=== PATIENT | male | born 1935 | race Caucasian/White ===

== ENCOUNTER 2018-05-13 09:24 | Inpatient (IN) | payer MEDICARE, OTHER ==
[2018-05-13] MEDS: Sodium Chloride 0.9% 10 ML Syringe FLUSH PRN ×2 (09:53→15:11)
[2018-05-13] MEDS ORDERED: Albuterol/Ipratropium 3.0-0.5 MG/3 ML Neb Soln NEB ONE (10:01)
[2018-05-13] MEDS ORDERED: Furosemide 40 MG/4 ML VIAL IVPUSH ONE ×2 (10:01→15:00)
[2018-05-13 10:27] LABS: ANION GAP 17.6; CHLORIDE,CL 99 mmol/L (101-111); SODIUM,NA 136 mmol/L (135-145)
--- NOTE | 2018-05-13 11:17 | EDM.PDOC ---
"Scribed by Brandie Granado 05/13/18 1053 for Elizabeth Perkins MD ED HPI GENERAL MEDICAL PROBLEM - General Chief Complaint: Respiratory Problem Stated Complaint: BREATHING PROBLEMS Time Seen by Provider: 05/13/18 09:45 Source of Information: Reports: Patient, RN, RN Notes Reviewed History Limitations: Reports: No Limitations - History of Present Illness INITIAL COMMENTS - FREE TEXT/NARRATIVE: Patient presents to ER from home by POV with complaint of progressively worsening shortness of breath for the past several days. Admits to orthopnea, edema and dyspnea at rest. Patient states he is concerned that this is a flare up of congestive heart failure. He denies fever, chills, chest pain or palpitations. He has not taken his Lasix yet this morning. He does have some sputum production but states it is clear but white. Onset: Gradual Duration: Getting Worse Location: Reports: Chest Quality: Reports: Other (denies pain) Severity: Severe Improves with: Reports: None Worsens with: Reports: Other (supine position and exertion.) Associated Symptoms: Reports: No Other Symptoms - Related Data Allergies Allergy/AdvReac Type Severity Reaction Status Date / Time No Known Allergies Allergy Verified 05/13/18 09:40 Home Meds: Home Meds Cholecalciferol (Vitamin D3) [Vitamin D3] 5,000 unit PO DAILY 09/20/13 [History] FLUoxetine HCl [Fluoxetine HCl] 20 mg PO DAILY 09/20/13 [History] Simvastatin 20 mg PO BEDTIME 09/20/13 [History] Cyanocobalamin (Vitamin B-12) [Vitamin B-12] 100 mcg PO DAILY 03/24/14 [History] Flecainide Acetate 50 mg PO DAILY 05/10/16 [History] Magnesium 250 mg PO DAILY 05/10/16 [History] Metoprolol Succinate 50 mg PO DAILY 05/10/16 [History] Rivaroxaban [Xarelto] 20 mg PO DAILY 05/10/16 [History] Furosemide 40 mg PO BID 05/13/18 [History] Potassium Chloride [Klor-Con 10] 10 meq PO DAILY 05/13/18 [History] Past Medical History HEENT History: Reports: Other (See Below) Other HEENT History: cleft pallet Cardiovascular History: Reports: High Cholesterol, Hypertension, Pacemaker Respiratory History: Reports: Sleep Apnea, SOB Gastrointestinal History: Reports: GI Bleed Hematologic History: Reports: Blood Transfusion(s) Social & Family History - Family History Family Medical History: Unobtainable - Living Situation & Occupation Living situation: Reports: with Spouse ED ROS GENERAL - Review of Systems Review Of Systems: ROS reveals no pertinent complaints other than HPI. ED EXAM, GENERAL - Physical Exam Exam: See Below Exam Limited By: No Limitations General Appearance: Alert, No Apparent Distress, Obese, Other (Frail, elderly appearing) Eye Exam: Bilateral Eye: Normal Inspection Ears: Normal External Exam, Hearing Loss (chronic/stable) Nose: No Blood. No: Nasal Drainage Throat/Mouth: Normal Inspection, Normal Lips, No Airway Compromise Head: Atraumatic, Normocephalic Neck: Normal Inspection, Supple, Non-Tender, Full Range of Motion Respiratory/Chest: No Respiratory Distress, No Accessory Muscle Use, Decreased Breath Sounds, Crackles, Rales, Wheezing. No: Rhonchi, Stridor Cardiovascular: Regular Rate, Rhythm, Other (2+ pitting edema to B/L lower extremities to the knees) GI/Abdominal: Normal Bowel Sounds, Soft, Non-Tender (Male) Exam: Deferred Rectal (Males) Exam: Deferred Back Exam: Normal Inspection Extremities: Non-Tender, Normal Capillary Refill, Pedal Edema Neurological: Alert, Oriented, CN II-XII Intact, Normal Cognition, No Motor/ Sensory Deficits Psychiatric: Normal Affect, Normal Mood Skin Exam: Warm, Dry, Intact, Normal Color, No Rash EKG INTERPRETATION EKG Date: 05/13/18 Time: 10:15 Rhythm: Other (paced) Rate (Beats/Min): 72 Comparison: NA - No Prior EKG Course - Vital Signs Last Recorded V/S: Last Vital Signs Temp 37.8 C 05/13/18 11:00 Pulse 70 05/13/18 11:00 Resp 22 H 05/13/18 11:00 BP 147/82 H 05/13/18 11:00 Pulse Ox 89 L 05/13/18 09:28 - Orders/Labs/Meds Orders: Active Orders 24 hr Category Date Time Status EKG 12 Lead [EKG Documentation Completion] [RC] STAT Care 05/13/18 10:00 Active Peripheral IV Care [RC] . DIRECTED Care 05/13/18 10:01 Active RT Aerosol Therapy [RC] ASDIRECTED Care 05/13/18 10:01 Active Chest 1V Frontal [CR] Stat Exams 05/13/18 10:00 Taken Sodium Chloride 0.9% [Saline Flush] Med 05/13/18 10:01 Active 10 ml FLUSH ASDIRECTED PRN Peripheral IV Insertion Adult [OM.PC] Stat Oth 05/13/18 10:00 Ordered Medication Orders Sodium Chloride (Saline Flush) 10 ml FLUSH ASDIRECTED PRN PRN Reason: Keep Vein Open Last Admin: 05/13/18 09:53 Dose: 10 ml Labs: Laboratory Tests 05/13/18 05/13/18 Range/Units 09:55 09:55 WBC 5.5 (5.0-10.0) 10^3/uL RBC 4.09 L (4.6-6.2) 10^6/uL Hgb 13.1 L (14.0-18.0) g/dL Hct 38.5 L (40.0-54.0) % MCV 94.1 (80-100) fL MCH 32.0 (27.0-34.0) pg MCHC 34.0 (33.0-35.0) g/dL Plt Count 174 (150-450) 10^3/uL Neut % (Auto) 65.2 (42.2-75.2) % Lymph % (Auto) 18.3 L (20.5-50.1) % [place] % (Auto) 15.9 H (2-8) % Eos % (Auto) 0.2 L (1.0-3.0) % Baso % (Auto) 0.4 (0.0-1.0) % Sodium 136 (135-145) mmol/L Potassium 3.6 (3.6-5.0) mmol/L Chloride 99 L (101-111) mmol/L Carbon Dioxide 23.0 (21.0-31.0) mmol/L Anion Gap 17.6 BUN 17 (7-18) mg/dL Creatinine 1.0 (0.6-1.3) mg/dL Est Cr Clr Drug Dosing TNP Estimated GFR (MDRD) > 60 BUN/Creatinine Ratio 17.00 Glucose 118 H (74-105) mg/dL Calcium 8.3 L (8.4-10.2) mg/dl Total Bilirubin 1.3 H (0.2-1.0) mg/dL AST 43 H (10-42) IU/L ALT 37 (10-60) IU/L Alkaline Phosphatase 60 (42-121) IU/L Troponin I 0.03 H* (0.00-0.02) ng/ml B-Natriuretic Peptide 751 H (0-100) pg/ml Total Protein 6.4 L (6.7-8.2) g/dl Albumin 3.3 (3.2-5.5) g/dl Globulin 3.1 Albumin/Globulin Ratio 1.06 Meds: Medications Generic Name Dose Route Start Last Admin Trade Name Freq PRN Reason Stop Dose Admin Sodium Chloride 10 ml 05/13/18 10:05/13/18 09:53 Saline Flush FLUSH 10 ml ASDIRECTED PRN Administration Keep Vein Open Discontinued Medications Generic Name Dose Route Start Last Admin Trade Name Freq PRN Reason Stop Dose Admin Albuterol/Ipratropium 3 ml 05/13/18 10:05/13/18 10:13 Duoneb 3.0-0.5 Mg/3 Ml NEB 05/13/18 10:02 3 ml ONETIME ONE Administration Furosemide 40 mg 05/13/18 10:05/13/18 10:13 Lasix IVPUSH 05/13/18 10:02 40 mg NOW ONE Administration - Radiology Interpretation Free Text/Narrative:: [facility] Final Radiology Report Call: [phone] assistance Online chat: [email or web address] Name: CHREYL FRANKEL Age: 82Years M Date: 05/13/2018 SSN: -- : [id number] Study: XR CHEST 1 VIEW Requesting Physician: ELIZABETH PERKINS Images: 1 Addl Studies: Provided Clinical History: Contrast: Contrast Medium: Contrast Amount: Contrast Method: Page 1 of 2 EXAM: XR Chest, 1 View EXAM DATE/TIME: 05/13/2018 10:31 AM CLINICAL HISTORY: 82 years old, male; Signs and symptoms; Shortness of breath and other: Edema; Patient HX: HX chf TECHNIQUE: XR of the chest, 1 view. COMPARISON: No relevant prior studies available. FINDINGS: Tubes, catheters and devices: Dual-lead pacemaker is in place with leads projecting over the right heart. The right ventricular lead is slightly more superiorly positioned than typical. Lungs: The pulmonary vasculature is dilated. Interstitial markings are increased in a perihilar distribution. No focal consolidation. Pleural space: Unremarkable. No pleural effusion. No pneumothorax. Heart/Mediastinum: The heart is enlarged. Bones/joints: Unremarkable. IMPRESSION: 1. Cardiomegaly, central vascular congestion and interstitial edema typical of fluid overload. 2. Slightly more superiorly positioned right ventricular lead than expected. Recommend correlation surgical history and with any outside examinations to evaluate for stability. Thank you for allowing us to participate in the care of your patient. CHERYL FRANKEL | Final Radiology Report CONFIDENTIALITY STATEMENT This report is intended only for use by the referring physician, and only in accordance with law. If you received this in error, call [phone]. Page 2 of 2 Dictated and Authenticated by: Lyn Snigh MD 05/13/2018 10:50 AM Central Time ([place] & [place]) Departure - Departure Time of Disposition: 11:07 (admitted to Dr. Pitts) Disposition: Admitted As Inpatient 68 Condition: Serious Clinical Impression: Acute on chronic diastolic CHF (congestive heart failure), Hypoxia - Discharge Information *PRESCRIPTION DRUG MONITORING PROGRAM REVIEWED*: Not Applicable *COPY OF PRESCRIPTION DRUG MONITORING REPORT IN PATIENT [place]: Not Applicable Forms: ED Department Discharge - My Orders Last 24 Hours: My Active Orders 05/13/18 10:00 EKG 12 Lead [EKG Documentation Completion] [RC] STAT Chest 1V Frontal [CR] Stat Peripheral IV Insertion Adult [OM.PC] Stat 05/13/18 10:01 Peripheral IV Care [RC] . DIRECTED RT Aerosol Therapy [RC] ASDIRECTED Sodium Chloride 0.9% [Saline Flush] 10 ml FLUSH ASDIRECTED PRN - Assessment/Plan Last 24 Hours: My Active Orders 05/13/18 10:00 EKG 12 Lead [EKG Documentation Completion] [RC] STAT Chest 1V Frontal [CR] Stat Peripheral IV Insertion Adult [OM.PC] Stat 05/13/18 10:01 Peripheral IV Care [RC] . DIRECTED RT Aerosol Therapy [RC] ASDIRECTED Sodium Chloride 0.9% [Saline Flush] 10 ml FLUSH ASDIRECTED PRN I have read and agree with the documentation that has been completed regarding this visit. By signing this record, I attest that the documentation was completed in my physical presence and is an accurate record of the encounter."
[2018-05-13] MEDS ORDERED: Sodium Chloride 0.9% 10 ML Syringe FLUSH PRN (12:36)
[2018-05-13] MEDS ORDERED: Acetaminophen 325 MG Tab PO PRN (12:36)
[2018-05-13] MEDS ORDERED: Furosemide 40 MG/4 ML VIAL IVPUSH SCH (12:45)
[2018-05-13] MEDS: Nicotine 7 MG/24 Hr Patch TRDERM SCH (12:56)
[2018-05-13] MEDS ORDERED: Potassium Chloride 10 MEQ Tab.ER PO ONE (13:00)
[2018-05-13] MEDS ORDERED: FLUoxetine 10 MG Cap PO ONE (13:00)
--- NOTE | 2018-05-13 13:05 | HP ---
CHIEF COMPLAINT: Shortness of breath. HISTORY OF PRESENT ILLNESS: The patient is an 82-year-old gentleman with past medical history of sick sinus syndrome, status post pacemaker placement, and atrial fibrillation, who was admitted through the emergency room because of increasing shortness of breath and increasing pedal edema that has been going on for the last several days and lately has been also complaining of orthopnea. The patient denies though any fever, any chills, chest pain, syncope, abdominal pain, nausea or vomiting, nor any other associated symptoms. Because of the above symptoms, he had increasing shortness of breath. He came into the emergency room, and he was subsequently admitted. PAST MEDICAL HISTORY: Remarkable for congestive heart failure; history of atrial fibrillation/sick sinus syndrome, status post permanent pacemaker placement; tobacco habituation; and dyslipidemia. FAMILY HISTORY: Noncontributory. SOCIAL HISTORY: The patient is . Smokes cigarettes but non-alcohol drinker. Recently moved to [place] from [place]. REVIEW OF SYSTEMS: As in the HPI. The rest of the review of systems is negative. HOME MEDICATIONS: 1. Toprol-XL 50 mg daily. 2. KCl 10 mEq daily. 3. Flecainide 50 mg b.i.d. 4. Simvastatin 20 mg at bedtime. 5. Magnesium 250 mg daily. 6. Fluoxetine 20 mg daily. 7. B12 1000 mcg p.o. daily. 8. Vitamin D3 5000 units p.o. daily. 9. Lasix 40 mg b.i.d. 10.Xarelto 20 mg daily. ALLERGIES: No known drug allergies. PHYSICAL EXAMINATION: General: The patient is very pleasant, is alert and oriented, in mild respiratory distress. Vital Signs: Blood pressure is 156/91, pulse of 70, respirations of 32, and saturation is 89% on 2 L per nasal cannula. HEENT: Normocephalic. There is pink palpebral conjunctiva. Sclerae anicteric. There is some mild JVD with hepatojugular reflux. Heart: Regular rate and rhythm. Normal S1 and S2. No gallops. Lungs: Diminished breath sounds on both bases with faint crackles bilaterally but no wheezing. Abdomen: Obese and protuberant but soft and nontender. Extremities: Remarkable for 1 to 2+ bilateral pedal edema. No calf tenderness. LABORATORY DATA: Lab workup: 1. EKG, paced rhythm. 2. Chest x-ray is remarkable for cardiomegaly and cephalizations. There are no infiltrates noted, and no pleural effusion noted. 3. CBC: WBC is 5.5, hemoglobin is 13.1, hematocrit is 38.5, platelet is 174. 4. Comp panel: Chloride is 99, glucose is 118, total bilirubin of 1.3, AST is 43. Troponin is 0.03. BNP is 751. The rest of the panel is unremarkable. ADMITTING DIAGNOSES: 1. Acute exacerbation of chronic congestive heart failure. 2. Sick sinus syndrome, status post permanent pacemaker placement. 3. Atrial fibrillation. 4. Tobacco habituation. 5. Dyslipidemia. TREATMENT PLAN: The patient is going to be admitted to the telemetry floor. The patient will be given IV Lasix. He will be resumed on his home medication, but I am going to increase his metoprolol to 75 mg p.o. daily as his blood pressure is running [id number] elevated. We will also recheck a troponin in the a.m. as his troponin level is slightly just above the normal range. The patient is a full code. [facility] /[id number]
[2018-05-13] MEDS: Metoprolol Succinate 50 MG Tab.ER PO SCH (13:08)
[2018-05-13] MEDS: FLECAINIDE ACETATE 50 MG PO SCH (17:46)
[2018-05-13] MEDS: Rivaroxaban 10 MG Tab PO SCH (21:43)
[2018-05-13] MEDS: Simvastatin 10 MG Tab PO SCH (21:44)
[2018-05-14] MEDS: Albuterol/Ipratropium 3.0-0.5 MG/3 ML Neb Soln NEB PRN ×2 (02:11→13:42)
[2018-05-14 06:55] LABS: CHLORIDE,CL 97 mmol/L (101-111); SODIUM,NA 135 mmol/L (135-145)
[2018-05-14] MEDS: FLECAINIDE ACETATE 50 MG PO SCH ×2 (08:45→17:49)
[2018-05-14] MEDS: FLUoxetine 10 MG Cap PO SCH (08:46)
[2018-05-14] MEDS: Metoprolol Succinate 50 MG Tab.ER PO SCH (08:47)
[2018-05-14] MEDS: Furosemide 40 MG/4 ML VIAL IVPUSH SCH ×2 (08:50→13:30)
[2018-05-14] MEDS: Nicotine 7 MG/24 Hr Patch TRDERM SCH (08:55)
[2018-05-14] MEDS ORDERED: CHOLECALCIFEROL 5000 UNIT PO SCH (09:00)
[2018-05-14] MEDS ORDERED: Potassium Chloride 10 MEQ Tab.ER PO SCH (09:00)
[2018-05-14] MEDS ORDERED: Non-Formulary Medication 1 Each (Rivaroxaban [Xarelto] 20 MG) PO SCH (09:00)
--- NOTE | 2018-05-14 12:31 | PCM.PN ---
- General Info Date of Service: 05/14/18 Admission Dx/Problem (Free Text): CHF exacerbation Subjective Update: I saw and examined the patient at bedside Shortness of breath has improved since admission Had an episode of blood-tinged stool has a history of hemorrhoids Functional Status: Reports: Pain Controlled - Review of Systems General: Reports: No Symptoms HEENT: Reports: No Symptoms Pulmonary: Reports: Shortness of Breath Cardiovascular: Reports: No Symptoms Gastrointestinal: Reports: No Symptoms Genitourinary: Reports: Other Musculoskeletal: Reports: Other (leg swelling) Neurological: Reports: No Symptoms - Patient Data Vitals - Most Recent: Last Vital Signs Temp 37.7 C 05/14/18 07:53 Pulse 73 05/14/18 08:47 Resp 22 H 05/14/18 07:53 BP 113/51 L 05/14/18 08:47 Pulse Ox 96 05/14/18 07:53 Weight - Most Recent: 95.424 kg I&O - Last 24 Hours: Intake & Output 05/13/18 05/14/18 05/14/18 22:59 06:59 14:59 Intake Total 300 125 560 Output Total 775 200 Balance -475 -75 560 Lab Results Last 24 Hours: Laboratory Results - last 24 hr 05/14/18 05/14/18 Range/Units 06:23 06:23 WBC 7.7 (5.0-10.0) 10^3/uL RBC 3.83 L (4.6-6.2) 10^6/uL Hgb 12.2 L (14.0-18.0) g/dL Hct 35.9 L (40.0-54.0) % MCV 93.7 (80-100) fL MCH 31.9 (27.0-34.0) pg MCHC 34.0 (33.0-35.0) g/dL Plt Count 162 (150-450) 10^3/uL Neut % (Auto) 74.2 (42.2-75.2) % Lymph % (Auto) 13.2 L (20.5-50.1) % [place] % (Auto) 12.3 H (2-8) % Eos % (Auto) 0.0 L (1.0-3.0) % Baso % (Auto) 0.3 (0.0-1.0) % Sodium 135 (135-145) mmol/L Potassium 3.0 L (3.6-5.0) mmol/L Chloride 97 L (101-111) mmol/L Carbon Dioxide 26.0 (21.0-31.0) mmol/L Anion Gap 15.0 BUN 18 (7-18) mg/dL Creatinine 0.9 (0.6-1.3) mg/dL Est Cr Clr Drug Dosing 56.94 mL/min Estimated GFR (MDRD) > 60 Glucose 116 H (74-105) mg/dL Calcium 8.2 L (8.4-10.2) mg/dl Troponin I 0.04 H* (0.00-0.02) ng/ml Med Orders - Current: Current Medications Acetaminophen (Tylenol) 650 mg PO Q4H PRN PRN Reason: Pain (Mild 1-3)/fever Albuterol/Ipratropium (Duoneb 3.0-0.5 Mg/3 Ml) 3 ml NEB QID PRN PRN Reason: Dyspnea Last Admin: 05/14/18 02:11 Dose: 3 ml Fluoxetine HCl (Prozac) 20 mg PO DAILY [facility] Last Admin: 05/14/18 08:46 Dose: 20 mg Furosemide (Lasix) 40 mg IVPUSH BIDDIURETIC [facility] Last Admin: 05/14/18 08:50 Dose: 40 mg Magnesium Oxide (Magnesium Oxide) 250 mg PO DAILY [facility] Last Admin: 05/14/18 08:46 Dose: 250 mg Metoprolol Succinate (Toprol Xl) 75 mg PO DAILY [facility] Last Admin: 05/14/18 08:47 Dose: 75 mg Nicotine (Habitrol) 7 mg TRDERM DAILY [facility] Last Admin: 05/14/18 08:55 Dose: Not Given (Flecainide Acetate 50 Mg) Patients Own 50 mg PO BIDMEALS [facility] Last Admin: 05/14/18 08:45 Dose: 50 mg Cyanocobalamin ( Vitamin B12) 1000 Mcg Tab Pt's Own Med 0 each PO DAILY [facility] Cholecalciferol [ Vitamin D3] 5,000 Unit Pt's Own Med 0 each PO DAILY [facility] Polyethylene Glycol (Miralax) 17 gm PO DAILY [facility] Potassium Chloride (Klor-Con 10) 40 meq PO BID [facility] Stop: 05/16/18 11:16 Rivaroxaban (Xarelto) 20 mg PO BEDTIME [facility] Last Admin: 05/13/18 21:43 Dose: 20 mg Senna/Docusate Sodium (Senna Plus) 1 tab PO BID [facility] Simvastatin (Zocor) 20 mg PO BEDTIME [facility] Last Admin: 05/13/18 21:44 Dose: 20 mg Sodium Chloride (Saline Flush) 10 ml FLUSH ASDIRECTED PRN PRN Reason: Keep Vein Open Last Admin: 05/13/18 15:11 Dose: 10 ml Sodium Chloride (Saline Flush) 10 ml FLUSH ASDIRECTED PRN PRN Reason: Keep Vein Open Discontinued Medications Albuterol/Ipratropium (Duoneb 3.0-0.5 Mg/3 Ml) 3 ml NEB ONETIME ONE Stop: 05/13/18 10:02 Last Admin: 05/13/18 10:13 Dose: 3 ml Fluoxetine HCl (Prozac) 20 mg PO ONETIME ONE Stop: 05/13/18 13:01 Last Admin: 05/13/18 13:10 Dose: 20 mg Furosemide (Lasix) 40 mg IVPUSH NOW ONE Stop: 05/13/18 10:02 Last Admin: 05/13/18 10:13 Dose: 40 mg Furosemide (Lasix) 40 mg IVPUSH BID [facility] Last Admin: 05/13/18 15:10 Dose: Not Given Furosemide (Lasix) 40 mg IVPUSH ONETIME ONE Stop: 05/13/18 15:01 Last Admin: 05/13/18 15:09 Dose: 40 mg Non-Formulary Medication (Rivaroxaban [Xarelto]) 20 mg PO DAILY [facility] Cholecalciferol [ Vitamin D3] 5,000 Unit Pt's Own Med 5,000 each PO DAILY [facility] Potassium Chloride (Klor-Con 10) 10 meq PO DAILY [facility] Last Admin: 05/14/18 08:46 Dose: 10 meq Potassium Chloride (Klor-Con 10) 10 meq PO ONETIME ONE Stop: 05/13/18 13:01 Last Admin: 05/13/18 13:10 Dose: 10 meq - Exam General: Alert, Oriented HEENT: Pupils Equal Neck: Supple Lungs: Crackles Cardiovascular: Regular Rate, Regular Rhythm GI/Abdominal Exam: Normal Bowel Sounds, Soft, Non-Tender - Problem List Review Problem List Initiated/Reviewed/Updated: Yes - My Orders Last 24 Hours: My Active Orders 05/14/18 11:08 OT Evaluation and Treatment [CONS] Routine PT Evaluation and Treatment [CONS] Routine 05/14/18 11:15 Docusate Sodium/Sennosides [Senna Plus] 1 tab PO BID Polyethylene Glycol 3350 [MiraLAX] 17 gm PO DAILY Potassium Chloride [Klor-Con 10] 40 meq PO BID 05/14/18 18:00 BASIC METABOLIC PANEL,BMP [CHEM] BID 05/14/18 Lunch Fluid Restriction [DIET] 05/15/18 18:00 BASIC METABOLIC PANEL,BMP [CHEM] BID 05/16/18 18:00 BASIC METABOLIC PANEL,BMP [CHEM] BID 05/17/18 18:00 BASIC METABOLIC PANEL,BMP [CHEM] BID 05/18/18 18:00 BASIC METABOLIC PANEL,BMP [CHEM] BID - Plan Plan:: #CHF exacerbation Continue IV lasix Salt and fluid restriction Oxygen as needed to keep sats > 92% Strict Is/Os #BRBPR likely 2/2 hemorrhoid monitor for now stool softeners check CBC, trend daily
[2018-05-14] MEDS: Potassium Chloride 10 MEQ Tab.ER PO SCH ×2 (13:18→20:40)
[2018-05-14] MEDS: CYANOCOBALAMIN 1000 MCG PO SCH (13:19)
[2018-05-14] MEDS: Polyethylene Glycol 3350 Powder 17 GM Packet PO SCH (13:20)
[2018-05-14] MEDS: Albuterol/Ipratropium 3.0-0.5 MG/3 ML Neb Soln NEB SCH ×3 (15:12→23:12)
[2018-05-14 18:25] LABS: ANION GAP 16.3; CHLORIDE,CL 95 mmol/L (101-111); SODIUM,NA 135 mmol/L (135-145)
[2018-05-14] MEDS ORDERED: Mineral Oil/Petrolatum/Phenylephrine/Shark Liver Oil Oint 57 GM Tube RECTAL PRN (19:36)
[2018-05-14] MEDS: Simvastatin 10 MG Tab PO SCH (20:42)
[2018-05-14] MEDS: Rivaroxaban 10 MG Tab PO SCH (20:42)
[2018-05-15] MEDS: Albuterol/Ipratropium 3.0-0.5 MG/3 ML Neb Soln NEB SCH ×5 (02:44→19:36)
[2018-05-15] MEDS: FLUoxetine 10 MG Cap PO SCH (08:39)
[2018-05-15] MEDS: Metoprolol Succinate 50 MG Tab.ER PO SCH (08:39)
[2018-05-15] MEDS: Potassium Chloride 10 MEQ Tab.ER PO SCH ×2 (08:39→20:27)
[2018-05-15] MEDS: Polyethylene Glycol 3350 Powder 17 GM Packet PO SCH (08:40)
[2018-05-15] MEDS: Furosemide 40 MG/4 ML VIAL IVPUSH SCH ×2 (08:41→15:00)
[2018-05-15] MEDS: Nicotine 7 MG/24 Hr Patch TRDERM SCH (08:41)
[2018-05-15] MEDS: CYANOCOBALAMIN 1000 MCG PO SCH (08:41)
[2018-05-15] MEDS: CHOLECALCIFEROL 5000 UNIT PO SCH (08:41)
[2018-05-15] MEDS: FLECAINIDE ACETATE 50 MG PO SCH ×2 (08:42→17:21)
[2018-05-15 10:55] LABS: ANION GAP 15.1; CHLORIDE,CL 99 mmol/L (101-111); SODIUM,NA 136 mmol/L (135-145)
--- NOTE | 2018-05-15 14:00 | PCM.PN ---
- General Info Date of Service: 05/15/18 Admission Dx/Problem (Free Text): CHF exacerbation Subjective Update: I saw and examined the patient at bedside Shortness of breath has improved since admission Still has slightly blood-tinged stools intermittently has a history of hemorrhoids - Review of Systems General: Reports: No Symptoms HEENT: Reports: No Symptoms Pulmonary: Reports: Shortness of Breath (improved) Cardiovascular: Reports: No Symptoms Gastrointestinal: Reports: Hematochezia Genitourinary: Reports: No Symptoms Musculoskeletal: Reports: No Symptoms Skin: Reports: No Symptoms Neurological: Reports: No Symptoms - Patient Data Vitals - Most Recent: Last Vital Signs Temp 37.2 C 05/15/18 13:03 Pulse 81 05/15/18 13:03 Resp 20 05/15/18 13:03 BP 146/71 H 05/15/18 13:03 Pulse Ox 93 L 05/15/18 13:03 Weight - Most Recent: 94.347 kg I&O - Last 24 Hours: Intake & Output 05/14/18 05/15/18 05/15/18 22:59 06:59 14:59 Intake Total 400 200 Output Total 625 250 Balance -225 -50 Lab Results Last 24 Hours: Laboratory Results - last 24 hr 05/14/18 05/15/18 05/15/18 Range/Units 18:00 05:57 06:08 WBC 7.3 (5.0-10.0) 10^3/uL RBC 3.79 L (4.6-6.2) 10^6/uL Hgb 12.2 L (14.0-18.0) g/dL Hct 35.7 L (40.0-54.0) % MCV 94.2 (80-100) fL MCH 32.2 (27.0-34.0) pg MCHC 34.2 (33.0-35.0) g/dL Plt Count 175 (150-450) 10^3/uL Neut % (Auto) 74.5 (42.2-75.2) % Lymph % (Auto) 12.2 L (20.5-50.1) % [place] % (Auto) 12.9 H (2-8) % Eos % (Auto) 0.1 L (1.0-3.0) % Baso % (Auto) 0.3 (0.0-1.0) % Sodium 135 136 (135-145) mmol/L Potassium 3.3 L 3.1 L (3.6-5.0) mmol/L Chloride 95 L 99 L (101-111) mmol/L Carbon Dioxide 27.0 25.0 (21.0-31.0) mmol/L Anion Gap 16.3 15.1 BUN 19 H 19 H (7-18) mg/dL Creatinine 1.0 0.8 (0.6-1.3) mg/dL Est Cr Clr Drug Dosing 51.25 64.06 mL/min Estimated GFR (MDRD) > 60 > 60 Glucose 143 H 113 H (74-105) mg/dL Calcium 8.8 8.2 L (8.4-10.2) mg/dl Med Orders - Current: Current Medications Acetaminophen (Tylenol) 650 mg PO Q4H PRN PRN Reason: Pain (Mild 1-3)/fever Albuterol/Ipratropium (Duoneb 3.0-0.5 Mg/3 Ml) 3 ml NEB QID PRN PRN Reason: Dyspnea Last Admin: 05/14/18 13:42 Dose: 3 ml Albuterol/Ipratropium (Duoneb 3.0-0.5 Mg/3 Ml) 3 ml NEB Q4HRRT [facility] Last Admin: 05/15/18 11:08 Dose: 3 ml Fluoxetine HCl (Prozac) 20 mg PO DAILY [facility] Last Admin: 05/15/18 08:39 Dose: 20 mg Furosemide (Lasix) 40 mg IVPUSH BIDDIURETIC [facility] Last Admin: 05/15/18 08:41 Dose: 40 mg Magnesium Oxide (Magnesium Oxide) 250 mg PO DAILY [facility] Last Admin: 05/15/18 08:39 Dose: 250 mg Metoprolol Succinate (Toprol Xl) 75 mg PO DAILY [facility] Last Admin: 05/15/18 08:39 Dose: 75 mg Nicotine (Habitrol) 7 mg TRDERM DAILY [facility] Last Admin: 05/15/18 08:41 Dose: Not Given (Flecainide Acetate 50 Mg) Patients Own 50 mg PO BIDMEALS [facility] Last Admin: 05/15/18 08:42 Dose: 50 mg Cyanocobalamin ( Vitamin B12) 1000 Mcg Tab Pt's Own Med 0 each PO DAILY [facility] Last Admin: 05/15/18 08:41 Dose: 1 each Cholecalciferol [ Vitamin D3] 5,000 Unit Pt's Own Med 0 each PO DAILY [facility] Last Admin: 05/15/18 08:41 Dose: 1 each Phenyleph/Shark Oil/Min Oil/Petrol (Preparation H Oint) 0 gm RECTAL BID PRN PRN Reason: Hemorrhoids Polyethylene Glycol (Miralax) 17 gm PO DAILY [facility] Last Admin: 05/15/18 08:40 Dose: 17 gm Potassium Chloride (Klor-Con 10) 40 meq PO BID [facility] Stop: 05/16/18 11:16 Last Admin: 05/15/18 08:39 Dose: 40 meq Rivaroxaban (Xarelto) 20 mg PO BEDTIME [facility] Last Admin: 05/14/18 20:42 Dose: 20 mg Senna/Docusate Sodium (Senna Plus) 1 tab PO BID [facility] Last Admin: 05/15/18 08:39 Dose: 1 tab Simvastatin (Zocor) 20 mg PO BEDTIME [facility] Last Admin: 05/14/18 20:42 Dose: 20 mg Sodium Chloride (Saline Flush) 10 ml FLUSH ASDIRECTED PRN PRN Reason: Keep Vein Open Discontinued Medications Albuterol/Ipratropium (Duoneb 3.0-0.5 Mg/3 Ml) 3 ml NEB ONETIME ONE Stop: 05/13/18 10:02 Last Admin: 05/13/18 10:13 Dose: 3 ml Fluoxetine HCl (Prozac) 20 mg PO ONETIME ONE Stop: 05/13/18 13:01 Last Admin: 05/13/18 13:10 Dose: 20 mg Furosemide (Lasix) 40 mg IVPUSH NOW ONE Stop: 05/13/18 10:02 Last Admin: 05/13/18 10:13 Dose: 40 mg Furosemide (Lasix) 40 mg IVPUSH BID [facility] Last Admin: 05/13/18 15:10 Dose: Not Given Furosemide (Lasix) 40 mg IVPUSH ONETIME ONE Stop: 05/13/18 15:01 Last Admin: 05/13/18 15:09 Dose: 40 mg Non-Formulary Medication (Rivaroxaban [Xarelto]) 20 mg PO DAILY [facility] Cholecalciferol [ Vitamin D3] 5,000 Unit Pt's Own Med 5,000 each PO DAILY [facility] Last Admin: 05/14/18 13:25 Dose: Not Given Potassium Chloride (Klor-Con 10) 10 meq PO DAILY [facility] Last Admin: 05/14/18 08:46 Dose: 10 meq Potassium Chloride (Klor-Con 10) 10 meq PO ONETIME ONE Stop: 05/13/18 13:01 Last Admin: 05/13/18 13:10 Dose: 10 meq Sodium Chloride (Saline Flush) 10 ml FLUSH ASDIRECTED PRN PRN Reason: Keep Vein Open Last Admin: 05/13/18 15:11 Dose: 10 ml - Exam General: Alert, Oriented HEENT: Pupils Equal, Pupils Reactive Neck: Supple Lungs: Clear to Auscultation, Normal Respiratory Effort Cardiovascular: Regular Rate, Regular Rhythm Physical Findings Comments:: Rectal exam: external hemorrhoids, no open bleeding seen - Problem List Review Problem List Initiated/Reviewed/Updated: Yes - My Orders Last 24 Hours: My Active Orders 05/14/18 14:28 RT Aerosol Therapy [RC] ASDIRECTED 05/14/18 14:40 JENNI Hose [Antiembolic Hose] [OM.PC] Routine 05/14/18 15:00 Albuterol/Ipratropium [DuoNeb 3.0-0.5 MG/3 ML] 3 ml NEB Q4HRRT 05/14/18 19:36 MO/Pet,Wh/Phenylephrine/Shk Lv [Preparation H Oint] 0 gm RECTAL BID PRN 05/15/18 12:23 Communication Order [RC] DAILY 05/15/18 18:00 BASIC METABOLIC PANEL,BMP [CHEM] Q12H 05/16/18 06:00 BASIC METABOLIC PANEL,BMP [CHEM] Q12H CBC WITH AUTO DIFF [HEME] DAILY 05/16/18 18:00 BASIC METABOLIC PANEL,BMP [CHEM] Q12H 05/17/18 06:00 BASIC METABOLIC PANEL,BMP [CHEM] Q12H CBC WITH AUTO DIFF [HEME] DAILY 05/18/18 06:00 CBC WITH AUTO DIFF [HEME] DAILY - Plan Plan:: #CHF exacerbation Continue IV lasix Salt and fluid restriction Oxygen as needed to keep sats > 92% Strict Is/Os #BRBPR likely 2/2 hemorrhoid (rectal exam done). monitor for now stool softeners check CBC, trend daily if bleeding frequency increases, may need GI/surgery eval outpatient colonoscopy
[2018-05-15 18:25] LABS: ANION GAP 14.1; CHLORIDE,CL 97 mmol/L (101-111); SODIUM,NA 135 mmol/L (135-145)
[2018-05-15] MEDS: Rivaroxaban 10 MG Tab PO SCH (20:24)
[2018-05-15] MEDS: Simvastatin 10 MG Tab PO SCH (20:25)
[2018-05-16] MEDS: Albuterol/Ipratropium 3.0-0.5 MG/3 ML Neb Soln NEB SCH ×3 (00:23→07:12)
[2018-05-16 06:44] LABS: ANION GAP 13.2; CHLORIDE,CL 100 mmol/L (101-111); SODIUM,NA 137 mmol/L (135-145)
[2018-05-16 08:09] VITALS: BP 143/82
[2018-05-16] MEDS: Polyethylene Glycol 3350 Powder 17 GM Packet PO SCH (09:30)
[2018-05-16] MEDS: FLUoxetine 10 MG Cap PO SCH (09:31)
[2018-05-16] MEDS: Metoprolol Succinate 50 MG Tab.ER PO SCH (09:32)
[2018-05-16] MEDS: Potassium Chloride 10 MEQ Tab.ER PO SCH (09:34)
[2018-05-16] MEDS: CYANOCOBALAMIN 1000 MCG PO SCH (09:34)
[2018-05-16] MEDS: FLECAINIDE ACETATE 50 MG PO SCH (09:35)
[2018-05-16] MEDS: CHOLECALCIFEROL 5000 UNIT PO SCH (09:35)
[2018-05-16] MEDS: Furosemide 40 MG/4 ML VIAL IVPUSH SCH (09:36)
[2018-05-16] MEDS: Nicotine 7 MG/24 Hr Patch TRDERM SCH (09:37)
--- NOTE | 2018-05-16 10:44 | PCM.DCSUM1 ---
Discharge Summary - Hospital Course Free Text/Narrative:: 82 yo M with PMH of SSS s/p PM, afib on xarelto, hemorrhoids, cigarette smoking , hyperlipidemia who presents with SOB, pedal edema, orthopnea and was managed for a CHF exacerbation with IV diuresis. He improved in respiratory status. However, he deveoped rectal bleeding during admission that worsened with Hemoglobin that dropped from 13.2 to 11.8 g/dL. Medical records show that he has a history of bleeding hemorrhoids with colonoscopy in 2016 and banding of hemorrhoids at [facility] in 2017. His xarelto was held and he was transferred to for further care. Diagnosis: Stroke: No - Discharge Data Discharge Date: 05/16/18 Discharge Disposition: DC/Tfer to Acute Hospital 02 Condition: Stable - Patient Summary/Data Consults: Consultations 05/14/18 11:08 OT Evaluation and Treatment [CONS] Routine PT Evaluation and Treatment [CONS] Routine - Patient Instructions Diet: Heart Healthy Diet, Low Sodium Fluid Restriction: 1500 mL - Discharge Plan *PRESCRIPTION DRUG MONITORING PROGRAM REVIEWED*: Not Applicable *COPY OF PRESCRIPTION DRUG MONITORING REPORT IN PATIENT [place]: Not Applicable Home Medications: Home Meds Cholecalciferol (Vitamin D3) [Vitamin D3] 5,000 unit PO DAILY 09/20/13 [History] FLUoxetine HCl [Fluoxetine HCl] 20 mg PO DAILY 09/20/13 [History] Simvastatin 20 mg PO BEDTIME 09/20/13 [History] Cyanocobalamin (Vitamin B-12) [Vitamin B-12] 1,000 mcg PO DAILY 03/24/14 [ History] Flecainide Acetate 50 mg PO BIDMEALS 05/10/16 [History] Magnesium 250 mg PO DAILY 05/10/16 [History] Metoprolol Succinate 50 mg PO DAILY 05/10/16 [History] Rivaroxaban [Xarelto] 20 mg PO DAILY 05/10/16 [History] Furosemide 40 mg PO BID 05/13/18 [History] Potassium Chloride [Klor-Con 10] 10 meq PO DAILY 05/13/18 [History] Forms: ED Department Discharge Referrals: PCP,None [Primary Care Provider] - - Discharge Summary/Plan Comment DC Time >30 min.: Yes - Patient Data Vitals - Most Recent: Last Vital Signs Temp 37.1 C 05/16/18 08:01 Pulse 73 05/16/18 09:32 Resp 20 05/16/18 08:01 BP 143/82 H 05/16/18 09:32 Pulse Ox 93 L 05/16/18 08:01 Weight - Most Recent: 93.259 kg I&O - Last 24 hours: Intake & Output 05/15/18 05/16/18 05/16/18 22:59 06:59 14:59 Intake Total 650 Output Total 1175 Balance 650 -1175 Lab Results - Last 24 hrs: Laboratory Results - last 24 hr 05/15/18 05/15/18 05/16/18 Range/Units 05:57 18:00 06:07 WBC (5.0-10.0) 10^3/uL RBC (4.6-6.2) 10^6/uL Hgb (14.0-18.0) g/dL Hct (40.0-54.0) % MCV (80-100) fL MCH (27.0-34.0) pg MCHC (33.0-35.0) g/dL Plt Count (150-450) 10^3/uL Neut % (Auto) (42.2-75.2) % Lymph % (Auto) (20.5-50.1) % [place] % (Auto) (2-8) % Eos % (Auto) (1.0-3.0) % Baso % (Auto) (0.0-1.0) % Sodium 136 135 137 (135-145) mmol/L Potassium 3.1 L 3.1 L 3.2 L (3.6-5.0) mmol/L Chloride 99 L 97 L 100 L (101-111) mmol/L Carbon Dioxide 25.0 27.0 27.0 (21.0-31.0) mmol/L Anion Gap 15.1 14.1 13.2 BUN 19 H 19 H 18 (7-18) mg/dL Creatinine 0.8 1.0 0.9 (0.6-1.3) mg/dL Est Cr Clr Drug Dosing 64.06 51.25 56.94 mL/min Estimated GFR (MDRD) > 60 > 60 > 60 Glucose 113 H 180 H 90 (74-105) mg/dL Calcium 8.2 L 8.2 L 8.4 (8.4-10.2) mg/dl 05/16/18 Range/Units 06:07 WBC 6.1 (5.0-10.0) 10^3/uL RBC 3.75 L (4.6-6.2) 10^6/uL Hgb 11.8 L (14.0-18.0) g/dL Hct 35.3 L (40.0-54.0) % MCV 94.1 (80-100) fL MCH 31.5 (27.0-34.0) pg MCHC 33.4 (33.0-35.0) g/dL Plt Count 168 (150-450) 10^3/uL Neut % (Auto) 61.2 (42.2-75.2) % Lymph % (Auto) 21.3 (20.5-50.1) % [place] % (Auto) 16.6 H (2-8) % Eos % (Auto) 0.7 L (1.0-3.0) % Baso % (Auto) 0.2 (0.0-1.0) % Sodium (135-145) mmol/L Potassium (3.6-5.0) mmol/L Chloride (101-111) mmol/L Carbon Dioxide (21.0-31.0) mmol/L Anion Gap BUN (7-18) mg/dL Creatinine (0.6-1.3) mg/dL Est Cr Clr Drug Dosing mL/min Estimated GFR (MDRD) Glucose (74-105) mg/dL Calcium (8.4-10.2) mg/dl Med Orders - Current: Current Medications Acetaminophen (Tylenol) 650 mg PO Q4H PRN PRN Reason: Pain (Mild 1-3)/fever Albuterol/Ipratropium (Duoneb 3.0-0.5 Mg/3 Ml) 3 ml NEB QID PRN PRN Reason: Dyspnea Last Admin: 05/14/18 13:42 Dose: 3 ml Albuterol/Ipratropium (Duoneb 3.0-0.5 Mg/3 Ml) 3 ml NEB Q4HRRT [facility] Last Admin: 05/16/18 07:12 Dose: 3 ml Fluoxetine HCl (Prozac) 20 mg PO DAILY [facility] Last Admin: 05/16/18 09:31 Dose: 20 mg Furosemide (Lasix) 40 mg IVPUSH BIDDIURETIC [facility] Last Admin: 05/16/18 09:36 Dose: 40 mg Magnesium Oxide (Magnesium Oxide) 250 mg PO DAILY [facility] Last Admin: 05/16/18 09:30 Dose: 250 mg Metoprolol Succinate (Toprol Xl) 75 mg PO DAILY [facility] Last Admin: 05/16/18 09:32 Dose: 75 mg Nicotine (Habitrol) 7 mg TRDERM DAILY [facility] Last Admin: 05/16/18 09:37 Dose: Not Given (Flecainide Acetate 50 Mg) Patients Own 50 mg PO BIDMEALS [facility] Last Admin: 05/16/18 09:35 Dose: 50 mg Cyanocobalamin ( Vitamin B12) 1000 Mcg Tab Pt's Own Med 0 each PO DAILY [facility] Last Admin: 05/16/18 09:34 Dose: 1 each Cholecalciferol [ Vitamin D3] 5,000 Unit Pt's Own Med 0 each PO DAILY [facility] Last Admin: 05/16/18 09:35 Dose: 1 each Phenyleph/Shark Oil/Min Oil/Petrol (Preparation H Oint) 0 gm RECTAL BID PRN PRN Reason: Hemorrhoids Last Admin: 05/16/18 09:42 Dose: 1 applic Polyethylene Glycol (Miralax) 17 gm PO DAILY [facility] Last Admin: 05/16/18 09:30 Dose: 17 gm Potassium Chloride (Klor-Con 10) 40 meq PO BID [facility] Stop: 05/16/18 11:16 Last Admin: 05/16/18 09:34 Dose: 40 meq Senna/Docusate Sodium (Senna Plus) 1 tab PO BID [facility] Last Admin: 05/16/18 09:30 Dose: 1 tab Simvastatin (Zocor) 20 mg PO BEDTIME [facility] Last Admin: 05/15/18 20:25 Dose: 20 mg Sodium Chloride (Saline Flush) 10 ml FLUSH ASDIRECTED PRN PRN Reason: Keep Vein Open Last Admin: 05/16/18 09:38 Dose: 10 ml Discontinued Medications Albuterol/Ipratropium (Duoneb 3.0-0.5 Mg/3 Ml) 3 ml NEB ONETIME ONE Stop: 05/13/18 10:02 Last Admin: 05/13/18 10:13 Dose: 3 ml Fluoxetine HCl (Prozac) 20 mg PO ONETIME ONE Stop: 05/13/18 13:01 Last Admin: 05/13/18 13:10 Dose: 20 mg Furosemide (Lasix) 40 mg IVPUSH NOW ONE Stop: 05/13/18 10:02 Last Admin: 05/13/18 10:13 Dose: 40 mg Furosemide (Lasix) 40 mg IVPUSH BID [facility] Last Admin: 05/13/18 15:10 Dose: Not Given Furosemide (Lasix) 40 mg IVPUSH ONETIME ONE Stop: 05/13/18 15:01 Last Admin: 05/13/18 15:09 Dose: 40 mg Non-Formulary Medication (Rivaroxaban [Xarelto]) 20 mg PO DAILY [facility] Cholecalciferol [ Vitamin D3] 5,000 Unit Pt's Own Med 5,000 each PO DAILY [facility] Last Admin: 05/14/18 13:25 Dose: Not Given Potassium Chloride (Klor-Con 10) 10 meq PO DAILY [facility] Last Admin: 05/14/18 08:46 Dose: 10 meq Potassium Chloride (Klor-Con 10) 10 meq PO ONETIME ONE Stop: 05/13/18 13:01 Last Admin: 05/13/18 13:10 Dose: 10 meq Rivaroxaban (Xarelto) 20 mg PO BEDTIME [facility] Last Admin: 05/15/18 20:24 Dose: 20 mg Sodium Chloride (Saline Flush) 10 ml FLUSH ASDIRECTED PRN PRN Reason: Keep Vein Open Last Admin: 05/13/18 15:11 Dose: 10 ml
== END 2018-05-16 11:10 | DRG 293 ==
LOC: DL.ED 09:24 → DL.MS 11:08 → UNDOADMIN 11:08 → DL.MS 12:36
PROVIDERS: ADMIT Internal Medicine; ATTEND Internal Medicine
DX: I11.0 Hypertensive heart disease with heart failure (principal); I50.33 Acute on chronic diastolic (congestive) heart failure; R09.02 Hypoxemia; E78.00 Pure hypercholesterolemia, unspecified; G47.30 Sleep apnea, unspecified; H91.90 Unspecified hearing loss, unspecified ear; I49.5 Sick sinus syndrome; K64.4 Residual hemorrhoidal skin tags; I48.91 Unspecified atrial fibrillation; E78.5 Hyperlipidemia, unspecified; F17.210 Nicotine dependence, cigarettes, uncomplicated; Z95.0 Presence of cardiac pacemaker; Z79.01 Long term (current) use of anticoagulants; Z79.899 Other long term (current) drug therapy
CPT/HCPCS: 36415; 71045; 80053; 83880; 84484; 85025; 93005; 94640; 96374; 99285; J1940; 51702; 80048; 94760; 97110-GO; 97116-GP; 97162-GP; 97165-GO; 97530-GO; A9270-GY; J7620-GY

== ENCOUNTER 2018-06-20 06:33 | Observation (INO) | payer MEDICARE, OTHER ==
--- NOTE | 2018-06-20 06:36 | EDM.PDOC ---
<Diana Nash - Last Filed: 06/20/18 07:08> ED HPI GENERAL MEDICAL PROBLEM - General Chief Complaint: Respiratory Problem Stated Complaint: AMBULANCE Time Seen by Provider: 06/20/18 06:35 Source of Information: Reports: Patient, EMS, RN, RN Notes Reviewed History Limitations: Reports: Respiratory Distress - History of Present Illness INITIAL COMMENTS - FREE TEXT/NARRATIVE: Pt to ER per [facility] with c/o SOB which began about 0300 and has progressively gotten worse. Patient tells nursing staff that he has been out of his medications for 1 week. He denies fever, chills, N/V/D. Pt admits to history of CHF. Onset: Today, Sudden - Related Data Allergies Allergy/AdvReac Type Severity Reaction Status Date / Time No Known Allergies Allergy Verified 05/13/18 11:57 Home Meds: Home Meds Cholecalciferol (Vitamin D3) [Vitamin D3] 5,000 unit PO DAILY 09/20/13 [History] FLUoxetine HCl [Fluoxetine HCl] 20 mg PO DAILY 09/20/13 [History] Simvastatin 20 mg PO BEDTIME 09/20/13 [History] Cyanocobalamin (Vitamin B-12) [Vitamin B-12] 1,000 mcg PO DAILY 03/24/14 [ History] Flecainide Acetate 50 mg PO BIDMEALS 05/10/16 [History] Magnesium 250 mg PO DAILY 05/10/16 [History] Metoprolol Succinate 50 mg PO DAILY 05/10/16 [History] Rivaroxaban [Xarelto] 20 mg PO DAILY 05/10/16 [History] Furosemide 40 mg PO BID 05/13/18 [History] Potassium Chloride [Klor-Con 10] 10 meq PO DAILY 05/13/18 [History] Past Medical History HEENT History: Reports: Hard of Hearing, Other (See Below) Other HEENT History: cleft pallet, wears glasses Cardiovascular History: Reports: Heart Failure, High Cholesterol, Hypertension, Pacemaker Respiratory History: Reports: Sleep Apnea, SOB Other Respiratory History: uses CPAP at home Gastrointestinal History: Reports: GI Bleed Genitourinary History: Reports: Prostate Disorder Neurological History: Reports: Other (See Below) Other Neuro History: [employer] [place] Psychiatric History: Reports: None Endocrine/Metabolic History: Reports: None Hematologic History: Reports: Blood Transfusion(s) Immunologic History: Reports: None Oncologic (Cancer) History: Reports: None Dermatologic History: Reports: None - Infectious Disease History Infectious Disease History: Reports: Chicken Pox, Measles, Mumps - Past Surgical History Head Surgeries/Procedures: Reports: None HEENT Surgical History: Reports: Cataract Surgery, Other (See Below) Other HEENT Surgeries/Procedures: left eyelid surgery Cardiovascular Surgical History: Reports: None Respiratory Surgical History: Reports: None GI Surgical History: Reports: Appendectomy, Colonoscopy Neurological Surgical History: Reports: None Oncologic Surgical History: Reports: None Dermatological Surgical History: Reports: Skin Biopsy, Other (See Below) Social & Family History - Family History Family Medical History: Noncontributory - Caffeine Use Caffeine Use: Reports: None - Living Situation & Occupation Living situation: Reports: with Spouse ED ROS GENERAL - Review of Systems Review Of Systems: ROS reveals no pertinent complaints other than HPI. ED EXAM, GENERAL - Physical Exam Exam: See Below Exam Limited By: Respiratory Distress General Appearance: Alert, WD/WN, Mild Distress Eye Exam: Bilateral Eye: EOMI, Normal Inspection Ears: Normal External Exam, Hearing Grossly Normal Nose: Normal Inspection Throat/Mouth: Normal Inspection, Normal Voice, No Airway Compromise Head: Atraumatic, Normocephalic Neck: Normal Inspection, Supple, Non-Tender, Full Range of Motion Respiratory/Chest: Decreased Breath Sounds, Crackles, Rales Cardiovascular: Normal Peripheral Pulses, Regular Rate, Rhythm, Other (edema to lower extremities bilaterally) Peripheral Pulses: 2+: Radial (L), Radial (R) GI/Abdominal: Normal Bowel Sounds, Soft, Non-Tender (Male) Exam: Deferred Rectal (Males) Exam: Deferred Back Exam: Normal Inspection, Full Range of Motion Extremities: Pedal Edema, Limited Range of Motion Neurological: Alert, Oriented, CN II-XII Intact, Normal Cognition Psychiatric: Normal Affect, Normal Mood Skin Exam: Warm, Dry, Intact, Normal Color, No Rash Lymphatic: No Adenopathy Course - Vital Signs Last Recorded V/S: Last Vital Signs Temp 36.3 C 06/20/18 06:33 Pulse 92 06/20/18 06:33 Resp 24 H 06/20/18 06:33 BP 151/94 H 06/20/18 06:33 Pulse Ox 95 06/20/18 06:33 - Orders/Labs/Meds Orders: Active Orders 24 hr Category Date Time Status EKG Documentation Completion [RC] STAT Care 06/20/18 06:34 Active Labs: Laboratory Tests 06/20/18 06/20/18 06/20/18 Range/Units 06:44 06:44 06:44 WBC 8.5 (5.0-10.0) 10^3/uL RBC 4.20 L (4.6-6.2) 10^6/uL Hgb 13.0 L (14.0-18.0) g/dL Hct 39.4 L (40.0-54.0) % MCV 93.8 (80-100) fL MCH 31.0 (27.0-34.0) pg MCHC 33.0 (33.0-35.0) g/dL Plt Count 201 (150-450) 10^3/uL Neut % (Auto) 57.9 (42.2-75.2) % Lymph % (Auto) 29.4 (20.5-50.1) % [place] % (Auto) 10.0 H (2-8) % Eos % (Auto) 2.2 (1.0-3.0) % Baso % (Auto) 0.5 (0.0-1.0) % Sodium 135 (135-145) mmol/L Potassium 4.0 (3.6-5.0) mmol/L Chloride 100 L (101-111) mmol/L Carbon Dioxide 23.0 (21.0-31.0) mmol/L Anion Gap 16.0 BUN 21 H (7-18) mg/dL Creatinine 1.1 (0.6-1.3) mg/dL Est Cr Clr Drug Dosing 46.59 mL/min Estimated GFR (MDRD) > 60 BUN/Creatinine Ratio 19.09 Glucose 132 H (74-105) mg/dL Lactic Acid 1.1 (0.5-2.2) mmol/L Calcium 9.0 (8.4-10.2) mg/dl Total Bilirubin 1.0 (0.2-1.0) mg/dL AST 41 (10-42) IU/L ALT 34 (10-60) IU/L Alkaline Phosphatase 69 (42-121) IU/L Troponin I 0.03 H* (0.00-0.02) ng/ml B-Natriuretic Peptide 1180 H (0-100) pg/ml Total Protein 7.2 (6.7-8.2) g/dl Albumin 3.5 (3.2-5.5) g/dl Globulin 3.7 Albumin/Globulin Ratio 0.95 - Radiology Interpretation Free Text/Narrative:: Chest xray: FINDINGS: Tubes, catheters and devices: Dual chamber pacemaker in good position Lungs: Interval development of mild CHF new since the prior study dated 2018 Pleural space: Unremarkable. No pleural effusion. No pneumothorax. Heart/Mediastinum: Mild cardiomegaly Bones/joints: Unremarkable. IMPRESSION: Cardiomegaly with interval development of mild CHF Thank you for allowing us to participate in the care of your patient. Dictated and Authenticated by: Nicolas Grossman MD 06/20/2018 7:02 AM Central Time ([place] & [place]) See rad report - Re-Assessments/Exams Free Text/Narrative Re-Assessment/Exam: 06/20/18 07:02 Patient care passed on to TERESSA Nguyen. Labs and diagnostics pending. Departure - Departure Disposition: Admitted As Inpatient 68 Clinical Impression: CHF (congestive heart failure) Qualifiers: Heart failure type: unspecified Heart failure chronicity: acute on chronic Qualified Code(s): I50.9 - Heart failure, unspecified - Discharge Information Forms: ED Department Discharge Care Plan Goals: Discussed the patient's history, examination, lab, EKG and x-ray results with Dr. Almazan. Dr. Almazan accepted the patient for continued evaluation and further management as an inpatient at [facility] in [place]. <Shady Yin - Last Filed: 06/20/18 07:46> Departure - Departure Time of Disposition: 07:43 Condition: Fair - Discharge Information *PRESCRIPTION DRUG MONITORING PROGRAM REVIEWED*: Not Applicable *COPY OF PRESCRIPTION DRUG MONITORING REPORT IN PATIENT [place]: Not Applicable
[2018-06-20 07:14] LABS: CHLORIDE,CL 100 mmol/L (101-111); SODIUM,NA 135 mmol/L (135-145)
[2018-06-20] MEDS ORDERED: Furosemide 40 MG/4 ML VIAL IVPUSH ONE (07:40)
[2018-06-20] MEDS ORDERED: Acetaminophen 325 MG Tab PO PRN (09:20)
[2018-06-20] MEDS ORDERED: Docusate Sodium 100 MG Cap PO PRN (09:20)
[2018-06-20] MEDS ORDERED: Magnesium Hydroxide 400 MG/5 ML Susp 30 ML Cup PO PRN (09:20)
--- NOTE | 2018-06-20 09:27 | PCM.HP ---
H&P History of Present Illness - General Date of Service: 06/20/18 Admit Problem/Dx: Admission Diagnosis/Problem Admission Diagnosis/Problem CHF, Congestive heart failure Source of Information: Patient History Limitations: Reports: No Limitations - History of Present Illness Initial Comments - Free Text/Narative: Patient is a 82 y/o male with past medical history of CHF, hypertension, hyperlipidemia, depression. He presented to the ER with shortness of breath that started around 3 AM this morning. Patient said he woke up with SOB and this has gotten progressively worse. He gets dyspneic with Minimal exertion. Patient is on lasix and has run out of his medication for about a week. He endorses orthopnea, PND, weight gain, leg swelling. Denies cough, fever, chills. Has no chest pain, palpitation, dizziness. In the ER BNP was elevated 1180, chest x-ray was normal. Patient will received IV Lasix. Improves with: Reports: None Worsens with: Reports: None Associated Symptoms: Reports: No Other Symptoms - Related Data Allergies/Adverse Reactions: Allergies Allergy/AdvReac Type Severity Reaction Status Date / Time No Known Allergies Allergy Verified 06/20/18 09:28 Home Medications: Home Meds Cholecalciferol (Vitamin D3) [Vitamin D3] 5,000 unit PO DAILY 09/20/13 [History] FLUoxetine HCl [Fluoxetine HCl] 20 mg PO DAILY 09/20/13 [History] Simvastatin 20 mg PO BEDTIME 09/20/13 [History] Cyanocobalamin (Vitamin B-12) [Vitamin B-12] 1,000 mcg PO DAILY 03/24/14 [ History] Flecainide Acetate 50 mg PO BIDMEALS 05/10/16 [History] Magnesium 250 mg PO DAILY 05/10/16 [History] Metoprolol Succinate 50 mg PO DAILY 05/10/16 [History] Rivaroxaban [Xarelto] 20 mg PO DAILY 05/10/16 [History] Furosemide 40 mg PO BID 05/13/18 [History] Potassium Chloride [Klor-Con 10] 10 meq PO DAILY 05/13/18 [History] Past Medical History HEENT History: Reports: Hard of Hearing, Other (See Below) Other HEENT History: cleft pallet, wears glasses Cardiovascular History: Reports: Heart Failure, High Cholesterol, Hypertension, Pacemaker Respiratory History: Reports: Sleep Apnea, SOB Other Respiratory History: uses CPAP at home Gastrointestinal History: Reports: GI Bleed Genitourinary History: Reports: Prostate Disorder Neurological History: Reports: Other (See Below) Other Neuro History: [place] Psychiatric History: Reports: None Endocrine/Metabolic History: Reports: None Hematologic History: Reports: Blood Transfusion(s) Immunologic History: Reports: None Oncologic (Cancer) History: Reports: None Dermatologic History: Reports: None - Infectious Disease History Infectious Disease History: Reports: Chicken Pox, Measles, Mumps - Past Surgical History Head Surgeries/Procedures: Reports: None HEENT Surgical History: Reports: Cataract Surgery, Other (See Below) Other HEENT Surgeries/Procedures: left eyelid surgery Cardiovascular Surgical History: Reports: None Respiratory Surgical History: Reports: None GI Surgical History: Reports: Appendectomy, Colonoscopy Neurological Surgical History: Reports: None Oncologic Surgical History: Reports: None Dermatological Surgical History: Reports: Skin Biopsy, Other (See Below) Social & Family History - Family History Family Medical History: Noncontributory - Tobacco Use Smoking Status *Q: Current Every Day Smoker Years of Tobacco use: 60 Packs/Tins Daily: 0.2 Second Hand Smoke Exposure: Yes - Caffeine Use Caffeine Use: Reports: None - Recreational Drug Use Recreational Drug Use: No - Living Situation & Occupation Living situation: Reports: with Spouse H&P Review of Systems - Review of Systems: Review Of Systems: See Below General: Reports: No Symptoms HEENT: Reports: No Symptoms Pulmonary: Reports: Shortness of Breath Cardiovascular: Reports: No Symptoms Gastrointestinal: Reports: No Symptoms Genitourinary: Reports: No Symptoms Musculoskeletal: Reports: No Symptoms Skin: Reports: No Symptoms Psychiatric: Reports: No Symptoms Neurological: Reports: No Symptoms Hematologic/Lymphatic: Reports: No Symptoms Immunologic: Reports: No Symptoms Exam - Exam Exam: See Below - Vital Signs Vital Signs: Last Vital Signs Temp 97.4 F 06/20/18 06:33 Pulse 92 06/20/18 06:33 Resp 24 H 06/20/18 06:33 BP 151/94 H 06/20/18 06:33 Pulse Ox 95 06/20/18 06:33 Weight: 205 lb - Exam Quality Assessment: DVT Prophylaxis General: Alert, Oriented, 4 HEENT: PERRLA, Hearing Intact, Mucosa Moist & [place], Nares Patent, Normal Nasal Septum, Posterior Pharynx Clear, Conjunctiva Clear, EOMI, EACs Clear, TMs Clear Neck: Supple, Trachea Midline Lungs: Clear to Auscultation, Normal Respiratory Effort, Crackles Cardiovascular: Regular Rate, Regular Rhythm GI/Abdominal Exam: Normal Bowel Sounds, Soft, Non-Tender, No Organomegaly, No Distention, No Abnormal Bruit, No Mass, Pelvis Stable (Male) Exam: No Hernia, Normal Inspection, Normal Prostate, Circumcised Rectal (Males) Exam: Normal Exam, Normal Rectal Tone, Prostate Normal Back Exam: Normal Inspection, Full Range of Motion, NT Extremities: Normal Inspection, Normal Range of Motion, Non-Tender, No Pedal Edema, Normal Capillary Refill, Pedal Edema Skin: Warm, Dry, Intact Neurological: Cranial Nerves Intact, Reflexes Equal Bilateral Neuro Extensive - Mental Status: Alert, Oriented x3, Normal Mood/Affect, Normal Cognition Neuro Extensive - Motor, Sensory, Reflexes: CN II-XII Intact, Normal Gait, Normal Reflexes Psychiatric: Alert, Normal Affect, Normal Mood - Patient Data Lab Results Last 24 hrs: Laboratory Results - last 24 hr 06/20/18 06/20/18 06/20/18 Range/Units 06:44 06:44 06:44 WBC 8.5 (5.0-10.0) 10^3/uL RBC 4.20 L (4.6-6.2) 10^6/uL Hgb 13.0 L (14.0-18.0) g/dL Hct 39.4 L (40.0-54.0) % MCV 93.8 (80-100) fL MCH 31.0 (27.0-34.0) pg MCHC 33.0 (33.0-35.0) g/dL Plt Count 201 (150-450) 10^3/uL Neut % (Auto) 57.9 (42.2-75.2) % Lymph % (Auto) 29.4 (20.5-50.1) % Park % (Auto) 10.0 H (2-8) % Eos % (Auto) 2.2 (1.0-3.0) % Baso % (Auto) 0.5 (0.0-1.0) % Sodium 135 (135-145) mmol/L Potassium 4.0 (3.6-5.0) mmol/L Chloride 100 L (101-111) mmol/L Carbon Dioxide 23.0 (21.0-31.0) mmol/L Anion Gap 16.0 BUN 21 H (7-18) mg/dL Creatinine 1.1 (0.6-1.3) mg/dL Est Cr Clr Drug Dosing 46.59 mL/min Estimated GFR (MDRD) > 60 BUN/Creatinine Ratio 19.09 Glucose 132 H (74-105) mg/dL Lactic Acid 1.1 (0.5-2.2) mmol/L Calcium 9.0 (8.4-10.2) mg/dl Total Bilirubin 1.0 (0.2-1.0) mg/dL AST 41 (10-42) IU/L ALT 34 (10-60) IU/L Alkaline Phosphatase 69 (42-121) IU/L Troponin I 0.03 H* (0.00-0.02) ng/ml B-Natriuretic Peptide 1180 H (0-100) pg/ml Total Protein 7.2 (6.7-8.2) g/dl Albumin 3.5 (3.2-5.5) g/dl Globulin 3.7 Albumin/Globulin Ratio 0.95 Result Diagrams: 06/20/18 06:44 06/20/18 06:44 - Problem List (1) Hypertension SNOMED Code(s): 11042033 ICD Code: I10 - ESSENTIAL (PRIMARY) HYPERTENSION Status: Acute Current Visit: Yes (2) Acute on chronic diastolic CHF (congestive heart failure) SNOMED Code(s): 450453507, 292465657 ICD Code: I50.33 - ACUTE ON CHRONIC DIASTOLIC (CONGESTIVE) HEART FAILURE Status: Acute Current Visit: No (3) Anemia SNOMED Code(s): 102290407 ICD Code: D64.9 - ANEMIA, UNSPECIFIED Status: Acute Priority: High Current Visit: No (4) SOB (shortness of breath) SNOMED Code(s): 716784085 ICD Code: R06.02 - SHORTNESS OF BREATH Status: Acute Priority: High Current Visit: No Problem List Initiated/Reviewed/Updated: Yes Orders Last 24hrs: Active Orders 24 hr Category Date Time Status Patient Status [ADT] Routine ADT 06/20/18 09:20 Ordered Ambulate [RC] ASDIRECTED Care 06/20/18 09:20 Ordered Antiembolic Devices [RC] .Routine Care 06/20/18 09:24 Ordered EKG Documentation Completion [RC] STAT Care 06/20/18 06:34 Active Height and Weight [RC] DAILY Care 06/20/18 09:20 Ordered Intake and Output [RC] QSHIFT Care 06/20/18 09:22 Ordered Notify Provider Vital Signs [RC] ASDIRECTED Care 06/20/18 09:22 Ordered Oxygen Therapy [RC] PRN Care 06/20/18 09:22 Ordered Pulse Oximetry [RC] PRN Care 06/20/18 09:22 Ordered VTE/DVT Education [RC] PER UNIT ROUTINE Care 06/20/18 09:24 Ordered Vital Signs [RC] Q4H Care 06/20/18 09:20 Ordered 2 Gram Sodium Diet [DIET] Diet 06/20/18 Breakfast Ordered B-TYPE NATRIURETIC PEPTIDE,BNP [CHEM] Routine Lab 06/21/18 07:00 Ordered Acetaminophen [Tylenol] Med 06/20/18 09:20 Ordered 650 mg PO Q4H PRN Docusate Sodium [Colace] Med 06/20/18 09:20 Ordered 100 mg PO DAILY PRN Furosemide [Lasix] Med 06/20/18 17:00 Ordered 40 mg IVPUSH DAILY Heparin Sodium Med 06/20/18 09:30 Ordered 5,000 units SUBCUT Q12H Magnesium Hydroxide [Milk of Magnesia] Med 06/20/18 09:20 Ordered 30 ml PO BID PRN Nicotine [Habitrol] Med 06/20/18 09:30 Ordered 14 mg TRDERM DAILY DVT/VTE Prophylaxis Reflex [OM.PC] Routine Oth 06/20/18 09:20 Ordered Medication Orders Acetaminophen (Tylenol) 650 mg PO Q4H PRN PRN Reason: Pain (mild 1-3 )/fever Docusate Sodium (Colace) 100 mg PO DAILY PRN PRN Reason: Constipation Furosemide (Lasix) 40 mg IVPUSH DAILY [facility] Heparin Sodium (Porcine) (Heparin Sodium) 5,000 units SUBCUT Q12H [facility] Magnesium Hydroxide (Milk Of Magnesia) 30 ml PO BID PRN PRN Reason: Constipation Nicotine (Habitrol) 14 mg TRDERM DAILY [facility] Assessment/Plan Comment:: Acute on chronic CHF exacerbation due to medication non-compliance Patient presented to the ER with shortness of breath that started this morning He endorsed orthopnea, PND, leg swelling, weight gain. BNP elevated Admit to general medical floor Monitor on comber tender vital Daily weights IV Lasix is 40 mg twice a day Fluid restriction; 1.5 L/24h Continue home medications Echo Hypertension BP within acceptable limit Continue home medications Hyperlipidemia On statin Depression Continue home medication Cardiac diet Full code
[2018-06-20] MEDS: Heparin Sodium 5,000 Units/ML Vial SUBCUT SCH ×2 (12:29→20:25)
[2018-06-20] MEDS: Nicotine 14 MG/24 Hr Patch TRDERM SCH (14:34)
[2018-06-20] MEDS: Potassium Chloride 10 MEQ Tab.ER PO SCH (14:40)
[2018-06-20] MEDS: Furosemide 40 MG/4 ML VIAL IVPUSH SCH (14:41)
[2018-06-20] MEDS ORDERED: Rivaroxaban 10 MG Tab PO SCH (18:00)
[2018-06-20] MEDS: FLECAINIDE ACETATE 100 MG PO SCH (20:49)
[2018-06-20] MEDS ORDERED: SIMVASTATIN 20 MG PO SCH (21:00)
[2018-06-21] MEDS ORDERED: CYANOCOBALAMIN 1000 MCG PO SCH (09:00)
[2018-06-21] MEDS ORDERED: Non-Formulary Medication 1 Each (Magnesium [Magnesium] 250 MG) PO SCH (09:00)
[2018-06-21] MEDS ORDERED: Metoprolol Succinate 50 MG Tab.ER **OWN MED PO SCH (09:00)
[2018-06-21] MEDS ORDERED: Non-Formulary Medication 1 Each (Cholecalciferol (Vitamin D3) [Vitamin D3] 5,000 UNIT) PO SCH (09:00)
[2018-06-21] MEDS: FLECAINIDE ACETATE 100 MG PO SCH (09:29)
[2018-06-21] MEDS: Nicotine 14 MG/24 Hr Patch TRDERM SCH (09:30)
[2018-06-21] MEDS: Furosemide 40 MG/4 ML VIAL IVPUSH SCH (09:33)
[2018-06-21] MEDS: Heparin Sodium 5,000 Units/ML Vial SUBCUT SCH (09:33)
[2018-06-21] MEDS: Potassium Chloride 10 MEQ Tab.ER PO SCH (09:33)
--- NOTE | 2018-06-21 09:35 | PCM.DCSUM1 ---
Discharge Summary - Hospital Course Free Text/Narrative:: h/o chf, pAfib, chronic anticoagulation presented with shortness of breath after a period of 7 days when he had no available Lasix On admission the patient was noted to have elevated BNP, signs and symptoms of congestive heart failure Acute on chronic CHF exacerbation due to medication non-compliance, severe systolic dysfunction Patient presented to the ER with shortness of breath that started this morning He endorsed orthopnea, PND, leg swelling, weight gain. BNP elevated The patient was treated with IV diuretic, Lasix His symptoms significantly improved Echo showed ef 25-30% The patient was continued on beta aby Added SUBHA inhibitor Continue diuretics Will need outpatient follow-up for further optimization of medical regimen paroxysmal atrial fibrillation continue sotalol and metoprolol anticoagulation with xarelto Hyperlipidemia On statin Diagnosis: Stroke: No - Discharge Data Discharge Date: 06/21/18 Discharge Disposition: Home, Self-Care 01 Condition: Stable - Patient Instructions Diet: Heart Healthy Diet Activity: As Tolerated - Discharge Plan *PRESCRIPTION DRUG MONITORING PROGRAM REVIEWED*: Not Applicable *COPY OF PRESCRIPTION DRUG MONITORING REPORT IN PATIENT [place]BER[place]: Not Applicable Prescriptions/Med Rec: Lisinopril [Prinivil] 2.5 mg PO DAILY #30 tab Home Medications: Home Meds Cholecalciferol (Vitamin D3) [Vitamin D3] 5,000 unit PO DAILY 09/20/13 [History] FLUoxetine HCl [Fluoxetine HCl] 20 mg PO DAILY 09/20/13 [History] Simvastatin 20 mg PO BEDTIME 09/20/13 [History] Cyanocobalamin (Vitamin B-12) [Vitamin B-12] 1,000 mcg PO DAILY 03/24/14 [ History] Flecainide Acetate 50 mg PO BIDMEALS 05/10/16 [History] Magnesium 250 mg PO DAILY 05/10/16 [History] Metoprolol Succinate 50 mg PO DAILY 05/10/16 [History] Rivaroxaban [Xarelto] 20 mg PO DAILY 05/10/16 [History] Furosemide 40 mg PO BID 05/13/18 [History] Potassium Chloride [Klor-Con 10] 10 meq PO DAILY 05/13/18 [History] Lisinopril [Prinivil] 2.5 mg PO DAILY #30 tab 06/21/18 [Rx] - Discharge Summary/Plan Comment DC Time >30 min.: No - General Info Date of Service: 06/21/18 Admission Dx/Problem (Free Text: Admission Diagnosis/Problem Admission Diagnosis/Problem CHF, Congestive heart failure - Review of Systems General: Denies: Fever Pulmonary: Reports: Shortness of Breath (Much improved, back to baseline). Denies: Wheezing Cardiovascular: Denies: Chest Pain, Palpitations Gastrointestinal: Denies: Abdominal Pain Genitourinary: Denies: Dysuria Neurological: Denies: Confusion - Patient Data Vitals - Most Recent: Last Vital Signs Temp 36.8 C 06/21/18 08:00 Pulse 72 06/21/18 08:00 Resp 20 06/21/18 08:00 BP 137/78 06/21/18 08:00 Pulse Ox 96 06/21/18 08:00 Weight - Most Recent: 92.17 kg I&O - Last 24 hours: Intake & Output 06/20/18 06/21/18 06/21/18 22:59 06:59 14:59 Intake Total 150 200 Output Total 3250 400 300 Balance -3100 -400 -100 Lab Results - Last 24 hrs: Laboratory Results - last 24 hr 06/21/18 Range/Units 06:00 B-Natriuretic Peptide 1200 H (0-100) pg/ml Med Orders - Current: Current Medications Acetaminophen (Tylenol) 650 mg PO Q4H PRN PRN Reason: Pain (mild 1-3 )/fever Docusate Sodium (Colace) 100 mg PO DAILY PRN PRN Reason: Constipation Furosemide (Lasix) 40 mg IVPUSH DAILY [facility] Last Admin: 06/20/18 14:41 Dose: 40 mg Heparin Sodium (Porcine) (Heparin Sodium) 5,000 units SUBCUT Q12HR [facility] Last Admin: 06/20/18 20:25 Dose: 5,000 units Magnesium Hydroxide (Milk Of Magnesia) 30 ml PO BID PRN PRN Reason: Constipation Magnesium Oxide (Magnesium Oxide) 250 mg PO WITHBREAKFAST [facility] Metoprolol Succinate (Toprol Xl) 50 mg PO DAILY [facility] Nicotine (Habitrol) 14 mg TRDERM DAILY [facility] Last Admin: 06/20/18 14:34 Dose: Not Given Non-Formulary Medication (Cholecalciferol (Vitamin D3) [Vitamin D3]) 5,000 unit PO DAILY [facility] Cyanocobalamin ( Vitamin B-12) 1,000 Mcg Tab Own Med 0 mcg PO DAILY [facility] Flecainide Acetate 100 Mg Tab Own Med 0 mg PO BIDMEALS [facility] Last Admin: 06/20/18 20:49 Dose: 50 mg Fluoxetine 20 Mg Cap (Own Med) 0 each PO DAILY [facility] Simvastatin (Zocor) 20 Mg Tab Own Med* * 0 each PO BEDTIME [facility] Last Admin: 06/20/18 20:25 Dose: 20 each Rivaroxaban (Xarelto ) 20 Mg Tab Own Med 0 each PO DAILY@1800 [facility] Potassium Chloride (Klor-Con 10) 10 meq PO DAILY [facility] Last Admin: 06/20/18 14:40 Dose: 10 meq Discontinued Medications Furosemide (Lasix) 40 mg IVPUSH NOW ONE Stop: 06/20/18 07:41 Last Admin: 06/20/18 08:18 Dose: 40 mg Non-Formulary Medication (Magnesium [Magnesium]) 250 mg PO DAILY [facility] Rivaroxaban (Xarelto) 20 mg PO DAILY@1800 [facility] Last Admin: 06/20/18 18:37 Dose: 20 mg - Exam Quality Assessment: Denies: Supplemental Oxygen General: Reports: Alert, Oriented Neck: Reports: Supple Lungs: Reports: Normal Respiratory Effort, Decreased Breath Sounds. Denies: Rales, Rhonchi Cardiovascular: Reports: Regular Rate, Regular Rhythm GI/Abdominal Exam: Normal Bowel Sounds, Soft, Non-Tender Extremities: Pedal Edema (1+) Neurological: Reports: Other (Walks with cane) Psy/Mental Status: Reports: Alert, Normal Affect, Normal Mood
[2018-06-21 11:44] VITALS: BP 120/68
[2018-06-21] MEDS ORDERED: RIVAROXABAN 20 MG PO SCH (18:00)
== END 2018-06-21 13:20 | disposition home or self-care (01) ==
LOC: DL.ED 06:33 → UNDOADMIN 09:16 → DL.MS 09:16 → INTOOBSV 09:20 → DL.MS 09:20
PROVIDERS: ADMIT Student in an Organized Health Care Education/Training Program; ATTEND Internal Medicine
DX: I11.0 Hypertensive heart disease with heart failure (principal); I50.33 Acute on chronic diastolic (congestive) heart failure; I48.0 Paroxysmal atrial fibrillation; E78.00 Pure hypercholesterolemia, unspecified; F32.9 Major depressive disorder, single episode, unspecified; F17.200 Nicotine dependence, unspecified, uncomplicated; D64.9 Anemia, unspecified; G47.30 Sleep apnea, unspecified; Z99.89 Dependence on other enabling machines and devices; Z91.14 Patient's other noncompliance with medication regimen; Z95.0 Presence of cardiac pacemaker; Z79.01 Long term (current) use of anticoagulants; Z79.899 Other long term (current) drug therapy
CPT/HCPCS: 36415; 71045; 80053; 83605; 83880; 84484; 85025; 93005; 93306; 96372; 96374; 96376; 99285; A9270; G0378; J1644; J1940

== ENCOUNTER 2018-09-27 10:45 | Emergency (ER) | payer MEDICARE, OTHER ==
--- NOTE | 2018-09-27 11:01 | CT ---
Clinical: 83-year-old male with history of "stroke" who has had recent motor difficulties (drinking coffee and getting out of car). Scan technique: Volume acquisition of data emergency unenhanced CT scan of the head and brain obtained with patient lying supine on the Siemens multi slice scanner [place], [place]. All data archived in the PACS system for storage, reformatting axial/sagittal/coronal planes and study (bone/brain windows). No previous exams immediately available. Interpretation: Abnormal. Multiple focal areas of decreased attenuation scattered throughout the periventricular white matter and particularly evident in the posterior limb internal capsule basal ganglia on the right and external capsules bilaterally. No edema or mass effect on sulci. Atrophy. No supratentorial or posterior fossa mass lesion (physiologic midline pineal and symmetric choroid plexus calcifications). Cerebellum and brainstem unremarkable. Uniformly thick bony calvarium without sign of skull fracture, underlying brain contusion or epidural/subdural hematoma. Symmetric clear pneumatization of the paranasal and mastoid sinuses. No sign of acute intracerebral/intraventricular/subarachnoid bleed. CONCLUSION: Multi-infarct (ischemic) disease. No sign of intracranial mass, hydrocephalus or bleed.
--- NOTE | 2018-09-27 11:09 | EDM.PDOC ---
ED HPI GENERAL MEDICAL PROBLEM - General Chief Complaint: Neuro Symptoms/Deficits Stated Complaint: STROKE? Time Seen by Provider: 09/27/18 10:55 Source of Information: Reports: Patient History Limitations: Reports: No Limitations - History of Present Illness INITIAL COMMENTS - FREE TEXT/NARRATIVE: This 83 yo male patient was brought to the ED by his due to left sided weakness. The patient reports he started to notice left sided weakness yesterday afternoon at about 1400. The patient reports he is left handed and prior to 1400 yesterday the patient had been feeling normally. While he was attempting to drink a cup of coffee, he found weakness and dropped his coffee cup. The patient has noticed continued left sided weakness today. The patient had difficulties getting into and out of the vehicle (not normal for him). Onset Date: 09/26/18 Onset Time: 14:00 Duration: Constant Location: Reports: Upper Extremity, Left, Lower Extremity, Left Quality: Reports: Other (weakness) Severity: Moderate Improves with: Reports: None Worsens with: Reports: None Context: Reports: Other Associated Symptoms: Reports: No Other Symptoms - Related Data Allergies Allergy/AdvReac Type Severity Reaction Status Date / Time No Known Allergies Allergy Verified 06/20/18 09:28 Home Meds: Home Meds Cholecalciferol (Vitamin D3) [Vitamin D3] 5,000 unit PO DAILY 09/20/13 [History] FLUoxetine HCl [Fluoxetine HCl] 20 mg PO DAILY 09/20/13 [History] Simvastatin 20 mg PO BEDTIME 09/20/13 [History] Cyanocobalamin (Vitamin B-12) [Vitamin B-12] 1,000 mcg PO DAILY 03/24/14 [ History] Flecainide Acetate 50 mg PO BIDMEALS 05/10/16 [History] Magnesium 250 mg PO DAILY 05/10/16 [History] Metoprolol Succinate 50 mg PO DAILY 05/10/16 [History] Rivaroxaban [Xarelto] 20 mg PO DAILY 05/10/16 [History] Furosemide 40 mg PO BID 05/13/18 [History] Potassium Chloride [Klor-Con 10] 10 meq PO DAILY 05/13/18 [History] Lisinopril [Prinivil] 2.5 mg PO DAILY #30 tab 06/21/18 [Rx] Past Medical History HEENT History: Reports: Hard of Hearing, Other (See Below) Other HEENT History: cleft pallet, wears glasses Cardiovascular History: Reports: Heart Failure, High Cholesterol, Hypertension, Pacemaker Respiratory History: Reports: Sleep Apnea, SOB Other Respiratory History: uses CPAP at home Gastrointestinal History: Reports: GI Bleed Genitourinary History: Reports: Prostate Disorder Neurological History: Reports: Other (See Below) Other Neuro History: Max Palsey Psychiatric History: Reports: None Endocrine/Metabolic History: Reports: None Hematologic History: Reports: Blood Transfusion(s) Immunologic History: Reports: None Oncologic (Cancer) History: Reports: None Dermatologic History: Reports: None - Infectious Disease History Infectious Disease History: Reports: Chicken Pox, Measles, Mumps - Past Surgical History Head Surgeries/Procedures: Reports: None HEENT Surgical History: Reports: Cataract Surgery, Other (See Below) Other HEENT Surgeries/Procedures: left eyelid surgery Cardiovascular Surgical History: Reports: None Respiratory Surgical History: Reports: None GI Surgical History: Reports: Appendectomy, Colonoscopy Neurological Surgical History: Reports: None Oncologic Surgical History: Reports: None Dermatological Surgical History: Reports: Skin Biopsy, Other (See Below) Social & Family History - Family History Family Medical History: Noncontributory - Caffeine Use Caffeine Use: Reports: None Caffeine Use Comment: decaff only - Living Situation & Occupation Living situation: Reports: with Spouse ED ROS GENERAL - Review of Systems Review Of Systems: ROS reveals no pertinent complaints other than HPI. ED EXAM, NEURO - Physical Exam Exam: See Below Exam Limited By: No Limitations General Appearance: Alert, WD/WN, Mild Distress Eye Exam: Bilateral Eye: EOMI, Normal Inspection, PERRL Ears: Normal External Exam, Normal Canal, Hearing Grossly Normal, Normal TMs Nose: Normal Inspection, Normal Mucosa, No Blood Throat/Mouth: Normal Inspection, Normal Lips, Normal Teeth, Normal Gums, Normal Oropharynx, Normal Voice, No Airway Compromise Head Exam: Atraumatic, Normocephalic Neck: Normal Inspection, Supple, Non-Tender, Full Range of Motion Respiratory/Chest: No Respiratory Distress, Lungs Clear, Normal Breath Sounds, No Accessory Muscle Use, Chest Non-Tender Cardiovascular: Normal Peripheral Pulses, Regular Rate, Rhythm, No Edema, No Gallop, No JVD, No Murmur, No Rub GI/Abdominal: Normal Bowel Sounds, Soft, Non-Tender, No Organomegaly, No Distention, No Abnormal Bruit, No Mass (Male) Exam: Deferred Rectal (Males) Exam: Deferred Neurological: Alert, Normal Mood/Affect, Normal Dorsiflexion, CN II-XII Intact, Normal Plantar Flexion, Normal Gait, Normal Reflexes, No Motor/Sensory Deficits , Oriented x 3 Back Exam: Normal Inspection, Full Range of Motion, NT Extremities: Other (left upper and lower extremity weakness) Psychiatric: Normal Affect, Normal Mood Skin Exam: Warm, Dry, Intact, Normal Color, No Rash Course - Vital Signs Last Recorded V/S: Last Vital Signs Temp 36.7 C 09/27/18 11:00 Pulse 71 09/27/18 11:00 Resp 20 09/27/18 11:00 BP 121/75 09/27/18 11:00 Pulse Ox 94 L 09/27/18 11:00 - Orders/Labs/Meds Orders: Active Orders 24 hr Category Date Time Status EKG Documentation Completion [RC] URGENT Care 09/27/18 11:03 Ordered Labs: Laboratory Tests 09/27/18 09/27/18 09/27/18 Range/Units 10:58 11:00 11:00 WBC 7.5 (5.0-10.0) 10^3/uL RBC 4.20 L (4.6-6.2) 10^6/uL Hgb 13.1 L (14.0-18.0) g/dL Hct 39.0 L (40.0-54.0) % MCV 92.9 (80-100) fL MCH 31.2 (27.0-34.0) pg MCHC 33.6 (33.0-35.0) g/dL Plt Count 215 (150-450) 10^3/uL Neut % (Auto) 67.5 (42.2-75.2) % Lymph % (Auto) 21.4 (20.5-50.1) % [place] % (Auto) 9.0 H (2-8) % Eos % (Auto) 1.7 (1.0-3.0) % Baso % (Auto) 0.4 (0.0-1.0) % PT 13.3 H (9.0-12.0) SEC INR 1.3 H (0.9-1.2) Sodium (135-145) mmol/L Potassium (3.6-5.0) mmol/L Chloride (101-111) mmol/L Carbon Dioxide (21.0-31.0) mmol/L Anion Gap BUN (7-18) mg/dL Creatinine (0.6-1.3) mg/dL Est Cr Clr Drug Dosing Estimated GFR (MDRD) BUN/Creatinine Ratio Glucose (74-105) mg/dL POC Glucose 114 H (83-110) mg/dl Calcium (8.4-10.2) mg/dl Total Bilirubin (0.2-1.0) mg/dL AST (10-42) IU/L ALT (10-60) IU/L Alkaline Phosphatase (42-121) IU/L Troponin I (0.00-0.02) ng/ml Total Protein (6.7-8.2) g/dl Albumin (3.2-5.5) g/dl Globulin Albumin/Globulin Ratio 09/27/18 Range/Units 11:00 WBC (5.0-10.0) 10^3/uL RBC (4.6-6.2) 10^6/uL Hgb (14.0-18.0) g/dL Hct (40.0-54.0) % MCV (80-100) fL MCH (27.0-34.0) pg MCHC (33.0-35.0) g/dL Plt Count (150-450) 10^3/uL Neut % (Auto) (42.2-75.2) % Lymph % (Auto) (20.5-50.1) % [place] % (Auto) (2-8) % Eos % (Auto) (1.0-3.0) % Baso % (Auto) (0.0-1.0) % PT (9.0-12.0) SEC INR (0.9-1.2) Sodium 137 (135-145) mmol/L Potassium 3.6 (3.6-5.0) mmol/L Chloride 104 (101-111) mmol/L Carbon Dioxide 23.0 (21.0-31.0) mmol/L Anion Gap 13.6 BUN 14 (7-18) mg/dL Creatinine 0.9 (0.6-1.3) mg/dL Est Cr Clr Drug Dosing TNP Estimated GFR (MDRD) > 60 BUN/Creatinine Ratio 15.55 Glucose 123 H (74-105) mg/dL POC Glucose (83-110) mg/dl Calcium 8.8 (8.4-10.2) mg/dl Total Bilirubin 1.1 H (0.2-1.0) mg/dL AST 28 (10-42) IU/L ALT 23 (10-60) IU/L Alkaline Phosphatase 60 (42-121) IU/L Troponin I 0.04 H* (0.00-0.02) ng/ml Total Protein 6.7 (6.7-8.2) g/dl Albumin 3.5 (3.2-5.5) g/dl Globulin 3.2 Albumin/Globulin Ratio 1.09 Departure - Departure Time of Disposition: 11:53 Disposition: DC/Tfer to Acute Hospital 02 Condition: Fair Clinical Impression: CVA (cerebral vascular accident) Qualifiers: CVA mechanism: unspecified Qualified Code(s): I63.9 - Cerebral infarction, unspecified - Discharge Information *PRESCRIPTION DRUG MONITORING PROGRAM REVIEWED*: Not Applicable *COPY OF PRESCRIPTION DRUG MONITORING REPORT IN PATIENT KIMBERLEY: Not Applicable Forms: ED Department Discharge, Interfacility Transfer EMTALA Care Plan Goals: Discussed the examination, lab, EKG, CT and history results with Dr. Almazan ( [facility]). Dr. Almazan accepted the patient for continued evaluation and further management at an inpatient at [facility] in [place]. The patient will be transported by [facility]. - My Orders Last 24 Hours: My Active Orders 09/27/18 11:03 EKG Documentation Completion [RC] URGENT - Assessment/Plan Last 24 Hours: My Active Orders 09/27/18 11:03 EKG Documentation Completion [RC] URGENT
[2018-09-27 11:26] LABS: ANION GAP 13.6; CHLORIDE,CL 104 mmol/L (101-111); SODIUM,NA 137 mmol/L (135-145)
[2018-09-27 11:46] VITALS: BP 121/75; PULSE 71
== END 2018-09-27 12:25 ==
LOC: DL.ED 10:45
DX: I63.9 Cerebral infarction, unspecified (principal); I11.0 Hypertensive heart disease with heart failure; I50.9 Heart failure, unspecified; E78.00 Pure hypercholesterolemia, unspecified; Z79.899 Other long term (current) drug therapy
CPT/HCPCS: 36415; 70450; 80053; 81001; 82962; 84484; 85025; 85610; 93005; 99284; 99285-25

== ENCOUNTER 2018-10-03 09:15 | Inpatient (IN) | payer MEDICARE, OTHER ==
[2018-10-03] MEDS ORDERED: Ondansetron 4 MG/2 ML SDV IVPUSH PRN (12:15)
[2018-10-03] MEDS ORDERED: Docusate Sodium 100 MG Cap PO PRN (12:15)
[2018-10-03] MEDS ORDERED: Acetaminophen 325 MG Tab PO PRN (12:15)
[2018-10-03] MEDS ORDERED: Ondansetron 4 MG Tab.DIS PO PRN (12:15)
--- NOTE | 2018-10-03 12:15 | PCM.HP ---
H&P History of Present Illness - General Date of Service: 10/03/18 Source of Information: Patient - History of Present Illness Initial Comments - Free Text/Narative: Heaven mckenzie 83 y.o.with PMH of tobacco use, hemorrhoids, hld, cad, chf,A. fib on Xarelto for chronic anticoagulation,history of Anton's palsy.[facility]. Patient presented to the ER at [facility] with left-sided weakness x 1 day. He was admitted for evaluation of acute CVA. Left-sided weakness due to acute CVA Improving CT brain from [place] negative for acute intracranial pathology CTA head done here in [facility] concerning for Small subacute lacunar infarcts Continue telemetry Echo; no source of emboli Continue Lipitor. Patient on Xarelto, and ASA as per neurology. Neurology consult appreciated. PT/OT CAD Stable. Continue home medication h/o chronic systolic CHF Not in exacerbation Continue home medication Afib Rate controlled on metoprolol.Continue same On Xarelto for anticoagulation. Continue HTN Now controlled Continue current care Continue to monitor BP closely - Related Data Allergies/Adverse Reactions: Allergies Allergy/AdvReac Type Severity Reaction Status Date / Time No Known Allergies Allergy Verified 10/03/18 10:44 Home Medications: Home Meds Cholecalciferol (Vitamin D3) [Vitamin D3] 5,000 unit PO DAILY 09/20/13 [History] FLUoxetine HCl [Fluoxetine HCl] 20 mg PO DAILY 09/20/13 [History] Simvastatin 20 mg PO BEDTIME 09/20/13 [History] Cyanocobalamin (Vitamin B-12) [Vitamin B-12] 1,000 mcg PO DAILY 03/24/14 [ History] Flecainide Acetate 50 mg PO BIDMEALS 05/10/16 [History] Metoprolol Succinate 50 mg PO DAILY 05/10/16 [History] Rivaroxaban [Xarelto] 20 mg PO DAILY 05/10/16 [History] Furosemide 40 mg PO BID 05/13/18 [History] Potassium Chloride [Klor-Con 10] 10 meq PO BID 05/13/18 [History] Aspirin [Halfprin] 81 mg PO DAILY 10/03/18 [History] Lisinopril 20 mg PO DAILY 10/03/18 [History] Magnesium Oxide [Magnesium] 400 mg PO DAILY 10/03/18 [History] Nicotine [Nicoderm CQ] 7 mg TOP DAILY 10/03/18 [History] Past Medical History HEENT History: Reports: Hard of Hearing, Other (See Below) Other HEENT History: cleft pallet, wears glasses Cardiovascular History: Reports: Heart Failure, High Cholesterol, Hypertension, Pacemaker Respiratory History: Reports: Sleep Apnea, SOB Other Respiratory History: uses CPAP at home, narcalepsy Gastrointestinal History: Reports: GI Bleed Genitourinary History: Reports: Urinary Incontinence, Other (See Below) Other Genitourinary History: at times Neurological History: Reports: CVA, Other (See Below) Other Neuro History: Huntington Palsey Psychiatric History: Reports: None Endocrine/Metabolic History: Reports: None Hematologic History: Reports: Blood Transfusion(s) Immunologic History: Reports: None Oncologic (Cancer) History: Reports: None Dermatologic History: Reports: None - Infectious Disease History Infectious Disease History: Reports: Measles - Past Surgical History Head Surgeries/Procedures: Reports: None HEENT Surgical History: Reports: Cataract Surgery, Other (See Below) Other HEENT Surgeries/Procedures: left eyelid surgery Cardiovascular Surgical History: Reports: None Respiratory Surgical History: Reports: None GI Surgical History: Reports: Appendectomy, Colonoscopy, Other (See Below) Neurological Surgical History: Reports: None Oncologic Surgical History: Reports: None Dermatological Surgical History: Reports: Skin Biopsy, Other (See Below) Social & Family History - Family History Family Medical History: Noncontributory - Tobacco Use Smoking Status *Q: Current Every Day Smoker Years of Tobacco use: 60 Packs/Tins Daily: 0.5 Second Hand Smoke Exposure: No - Caffeine Use Caffeine Use: Reports: Coffee, Soda Caffeine Use Comment: decaff only - Recreational Drug Use Recreational Drug Use: No - Living Situation & Occupation Living situation: Reports: with Spouse H&P Review of Systems - Review of Systems: Review Of Systems: See Below General: Reports: Weakness HEENT: Reports: No Symptoms Pulmonary: Reports: No Symptoms Cardiovascular: Reports: No Symptoms Gastrointestinal: Reports: No Symptoms Musculoskeletal: Reports: Other (Left-sided weakness) Skin: Reports: No Symptoms Psychiatric: Reports: No Symptoms Neurological: Reports: Other (Left-sided weakness) Exam - Exam Exam: See Below - Vital Signs Vital Signs: Last Vital Signs Temp 36.2 C 10/03/18 11:58 Pulse 81 10/03/18 11:58 Resp 20 10/03/18 11:58 BP 139/79 10/03/18 11:58 Pulse Ox 95 10/03/18 11:58 - Exam General: Alert, Oriented, Cooperative HEENT: PERRLA, Hearing Intact, Mucosa Moist & [place], Nares Patent, Normal Nasal Septum, Posterior Pharynx Clear, Conjunctiva Clear, EOMI, EACs Clear, TMs Clear Neck: Supple, Trachea Midline, 2 Lungs: Clear to Auscultation, Normal Respiratory Effort Cardiovascular: Regular Rate, Regular Rhythm GI/Abdominal Exam: Normal Bowel Sounds, Soft, Non-Tender, No Organomegaly, No Distention, No Abnormal Bruit, No Mass, Pelvis Stable Extremities: Normal Inspection, Normal Range of Motion, Non-Tender, No Pedal Edema, Normal Capillary Refill Neurological: Other (Mild weakness of the left extremities, 4 out of 5) Psychiatric: Alert, Normal Affect, Normal Mood Problem List Initiated/Reviewed/Updated: Yes Orders Last 24hrs: Active Orders 24 hr Category Date Time Status Regular Diet [DIET] Diet 10/03/18 Lunch Active Assessment/Plan Comment:: Left-sided weakness due to acute CVA Improving CT brain from [place] negative for acute intracranial pathology CTA head done in [facility] concerning for Small subacute lacunar infarcts Echo; no source of emboli Continue Lipitor. Patient on Xarelto, Aspirin admitted per neurology PT/OT CAD Stable. Continue home medication h/o chronic systolic CHF Ejection fraction is about 25% Not in exacerbation Continue home medication Afib Rate controlled on metoprolol. On Xarelto for anticoagulation. HTN Now controlled Continue current care
[2018-10-03] MEDS: Furosemide 40 MG Tab PO SCH (14:35)
[2018-10-03] MEDS: Potassium Chloride 10 MEQ Tab.ER PO SCH (17:22)
[2018-10-03] MEDS: FLECAINIDE 100 MG PO SCH (18:03)
[2018-10-03] MEDS: Simvastatin 10 MG Tab PO SCH (21:09)
[2018-10-04] MEDS: FLECAINIDE 100 MG PO SCH ×2 (09:13→17:07)
[2018-10-04] MEDS: MAGNESIUM 400 MG PO SCH (09:14)
[2018-10-04] MEDS: Nicotine 14 MG/24 Hr Patch TRDERM SCH (09:15)
[2018-10-04] MEDS: Cyanocobalamin (Vitamin B12) 1,000 MCG Tab PO SCH (09:17)
[2018-10-04] MEDS: Cholecalciferol (Vitamin D3) 1,000 Unit Tab PO SCH (09:17)
[2018-10-04] MEDS: Rivaroxaban 10 MG Tab PO SCH (09:17)
[2018-10-04] MEDS: Lisinopril 20 MG Tab PO SCH (09:17)
[2018-10-04] MEDS: FLUoxetine 10 MG Cap PO SCH (09:17)
[2018-10-04] MEDS: Metoprolol Succinate 50 MG Tab.ER PO SCH (09:18)
[2018-10-04] MEDS: Furosemide 40 MG Tab PO SCH ×2 (09:18→13:58)
[2018-10-04] MEDS: Aspirin 81 MG Tab.EC PO SCH (09:18)
[2018-10-04] MEDS: Potassium Chloride 10 MEQ Tab.ER PO SCH ×2 (09:18→17:07)
[2018-10-04] MEDS: Simvastatin 10 MG Tab PO SCH (21:39)
[2018-10-05] MEDS: Cholecalciferol (Vitamin D3) 1,000 Unit Tab PO SCH (08:44)
[2018-10-05] MEDS: Metoprolol Succinate 50 MG Tab.ER PO SCH (08:45)
[2018-10-05] MEDS: Lisinopril 20 MG Tab PO SCH (08:45)
[2018-10-05] MEDS: FLUoxetine 10 MG Cap PO SCH (08:45)
[2018-10-05] MEDS: Rivaroxaban 10 MG Tab PO SCH (08:46)
[2018-10-05] MEDS: Cyanocobalamin (Vitamin B12) 1,000 MCG Tab PO SCH (08:46)
[2018-10-05] MEDS: Aspirin 81 MG Tab.EC PO SCH (08:46)
[2018-10-05] MEDS: Furosemide 40 MG Tab PO SCH ×2 (08:47→14:30)
[2018-10-05] MEDS: FLECAINIDE 100 MG PO SCH ×2 (08:47→17:26)
[2018-10-05] MEDS: Potassium Chloride 10 MEQ Tab.ER PO SCH ×2 (08:47→17:26)
[2018-10-05] MEDS: Nicotine 14 MG/24 Hr Patch TRDERM SCH (08:48)
[2018-10-05] MEDS: MAGNESIUM 400 MG PO SCH (08:49)
[2018-10-05] MEDS: Simvastatin 10 MG Tab PO SCH (22:42)
[2018-10-06] MEDS: FLECAINIDE 100 MG PO SCH ×2 (08:12→17:28)
[2018-10-06] MEDS: Cholecalciferol (Vitamin D3) 1,000 Unit Tab PO SCH (08:13)
[2018-10-06] MEDS: Lisinopril 20 MG Tab PO SCH (08:14)
[2018-10-06] MEDS: Metoprolol Succinate 50 MG Tab.ER PO SCH (08:14)
[2018-10-06] MEDS: Cyanocobalamin (Vitamin B12) 1,000 MCG Tab PO SCH (08:14)
[2018-10-06] MEDS: Potassium Chloride 10 MEQ Tab.ER PO SCH ×2 (08:14→17:28)
[2018-10-06] MEDS: Rivaroxaban 10 MG Tab PO SCH (08:15)
[2018-10-06] MEDS: FLUoxetine 10 MG Cap PO SCH (08:15)
[2018-10-06] MEDS: Furosemide 40 MG Tab PO SCH ×2 (08:15→13:45)
[2018-10-06] MEDS: Aspirin 81 MG Tab.EC PO SCH (08:16)
[2018-10-06] MEDS: Nicotine 14 MG/24 Hr Patch TRDERM SCH (08:16)
[2018-10-06] MEDS: MAGNESIUM 400 MG PO SCH (08:18)
[2018-10-06] MEDS ORDERED: CHOLECALCIFEROL 5000 UNIT PO SCH (11:45)
[2018-10-06] MEDS: Simvastatin 10 MG Tab PO SCH (20:18)
[2018-10-07] MEDS: Rivaroxaban 10 MG Tab PO SCH (08:40)
[2018-10-07] MEDS: Aspirin 81 MG Tab.EC PO SCH (08:41)
[2018-10-07] MEDS: Furosemide 40 MG Tab PO SCH ×2 (08:41→13:16)
[2018-10-07] MEDS: FLUoxetine 10 MG Cap PO SCH (08:41)
[2018-10-07] MEDS: Cyanocobalamin (Vitamin B12) 1,000 MCG Tab PO SCH (08:41)
[2018-10-07] MEDS: Potassium Chloride 10 MEQ Tab.ER PO SCH ×2 (08:41→17:15)
[2018-10-07] MEDS: Nicotine 14 MG/24 Hr Patch TRDERM SCH (08:42)
[2018-10-07] MEDS: MAGNESIUM 400 MG PO SCH (08:42)
[2018-10-07] MEDS: CHOLECALCIFEROL 5000 UNIT PO SCH (08:43)
[2018-10-07] MEDS: FLECAINIDE 100 MG PO SCH ×2 (08:43→17:15)
[2018-10-07] MEDS: Lisinopril 20 MG Tab PO SCH (08:44)
[2018-10-07] MEDS: Metoprolol Succinate 50 MG Tab.ER PO SCH (08:44)
[2018-10-07] MEDS: Simvastatin 10 MG Tab PO SCH (21:00)
[2018-10-08 07:47] VITALS: BP 137/78
[2018-10-08] MEDS: Metoprolol Succinate 50 MG Tab.ER PO SCH (09:30)
[2018-10-08] MEDS: Cyanocobalamin (Vitamin B12) 1,000 MCG Tab PO SCH (09:31)
[2018-10-08] MEDS: Rivaroxaban 10 MG Tab PO SCH (09:31)
[2018-10-08] MEDS: Furosemide 40 MG Tab PO SCH (09:32)
[2018-10-08] MEDS: Lisinopril 20 MG Tab PO SCH (09:32)
[2018-10-08] MEDS: FLUoxetine 10 MG Cap PO SCH (09:32)
[2018-10-08] MEDS: Aspirin 81 MG Tab.EC PO SCH (09:32)
[2018-10-08] MEDS: Potassium Chloride 10 MEQ Tab.ER PO SCH (09:32)
[2018-10-08] MEDS: FLECAINIDE 100 MG PO SCH (09:33)
[2018-10-08] MEDS: CHOLECALCIFEROL 5000 UNIT PO SCH (09:34)
[2018-10-08] MEDS: Nicotine 14 MG/24 Hr Patch TRDERM SCH (09:34)
[2018-10-08] MEDS: MAGNESIUM 400 MG PO SCH (09:34)
--- NOTE | 2018-10-08 10:01 | PCM.DCSUM1 ---
Discharge Summary - Hospital Course Free Text/Narrative:: Heaven a 83 y.o.with PMH of tobacco use, hemorrhoids, hld, cad, chf,A. fib on Xarelto for chronic anticoagulation,history of Anton's palsy.Patient presented to the ER at [place] with left-sided weakness x 1 day. He was admitted for evaluation of acute CVA to acute care then transferred to swing bed for further pt/ot. Left-sided weakness due to acute CVA Improving CT brain from [place] negative for acute intracranial pathology CTA head done at [facility] was concerning for Small subacute lacunar infarcts Echo; no source of emboli Treat with Lipitor (changed from Zocor). Patient on Xarelto, and ASA as per neurology. will need front wheeled walker for ambulation re: CVA, weakness CAD Stable. Continue ASA, metoprolol, statin h/o chronic systolic CHF Not in exacerbation Afib Rate controlled on metoprolol. On Xarelto for anticoagulation. HTN Now controlled with metoprolol, lisinopril Diagnosis: Stroke: No - Discharge Data Discharge Date: 10/08/18 Discharge Disposition: Home, Self-Care 01 Condition: Good - Patient Summary/Data Consults: Consultations 10/03/18 12:15 OT Evaluation and Treatment [CONS] Routine PT Evaluation and Treatment [CONS] Routine - Patient Instructions Diet: Heart Healthy Diet Activity: As Tolerated - Discharge Plan *PRESCRIPTION DRUG MONITORING PROGRAM REVIEWED*: Not Applicable *COPY OF PRESCRIPTION DRUG MONITORING REPORT IN PATIENT KIMBERLEY: Not Applicable Prescriptions/Med Rec: atorvaSTATin [Lipitor] 20 mg PO BEDTIME #30 tablet Home Medications: Home Meds Cholecalciferol (Vitamin D3) [Vitamin D3] 5,000 unit PO DAILY 09/20/13 [History] FLUoxetine HCl [Fluoxetine HCl] 20 mg PO DAILY 09/20/13 [History] Cyanocobalamin (Vitamin B-12) [Vitamin B-12] 1,000 mcg PO DAILY 03/24/14 [ History] Flecainide Acetate 50 mg PO BIDMEALS 05/10/16 [History] Metoprolol Succinate 50 mg PO DAILY 05/10/16 [History] Rivaroxaban [Xarelto] 20 mg PO DAILY 05/10/16 [History] Furosemide 40 mg PO BID 05/13/18 [History] Potassium Chloride [Klor-Con 10] 10 meq PO BID 05/13/18 [History] Aspirin [Halfprin] 81 mg PO DAILY 10/03/18 [History] Lisinopril 20 mg PO DAILY 10/03/18 [History] Magnesium Oxide [Magnesium] 400 mg PO DAILY 10/03/18 [History] Nicotine [Nicoderm CQ] 7 mg TOP DAILY 10/03/18 [History] atorvaSTATin [Lipitor] 20 mg PO BEDTIME #30 tablet 10/08/18 [Rx] - Discharge Summary/Plan Comment DC Time >30 min.: No - General Info Date of Service: 10/08/18 Functional Status: Reports: Tolerating Diet - Review of Systems General: Denies: Fever Pulmonary: Denies: Shortness of Breath Cardiovascular: Denies: Chest Pain Gastrointestinal: Denies: Abdominal Pain - Patient Data Vitals - Most Recent: Last Vital Signs Temp 36.9 C 10/08/18 07:46 Pulse 80 10/08/18 09:30 Resp 20 10/08/18 07:46 BP 137/78 10/08/18 09:32 Pulse Ox 93 L 10/08/18 07:46 Weight - Most Recent: 91.535 kg I&O - Last 24 hours: Intake & Output 10/07/18 10/08/18 10/08/18 22:59 06:59 14:59 Intake Total 500 120 Balance 500 120 Med Orders - Current: Current Medications Acetaminophen (Tylenol) 650 mg PO Q4H PRN PRN Reason: Pain (Mild 1-3)/fever Aspirin (Halfprin) 81 mg PO DAILY [facility] Last Admin: 10/08/18 09:32 Dose: 81 mg Cyanocobalamin (Vitamin B12) 1,000 mcg PO DAILY [facility] Last Admin: 10/08/18 09:31 Dose: 1,000 mcg Docusate Sodium (Colace) 100 mg PO BID PRN PRN Reason: Constipation Fluoxetine HCl (Prozac) 20 mg PO DAILY [facility] Last Admin: 10/08/18 09:32 Dose: 20 mg Furosemide (Lasix) 40 mg PO BIDDIURETIC [facility] Last Admin: 10/08/18 09:32 Dose: 40 mg Lisinopril (Prinivil) 20 mg PO DAILY [facility] Last Admin: 10/08/18 09:32 Dose: 20 mg Metoprolol Succinate (Toprol Xl) 50 mg PO DAILY [facility] Last Admin: 10/08/18 09:30 Dose: 50 mg Nicotine (Habitrol) 14 mg TRDERM DAILY [facility] Last Admin: 10/08/18 09:34 Dose: 14 mg Flecainide 100 Mg (Own Med) 0 mg PO BIDMEALS [facility] Last Admin: 10/08/18 09:33 Dose: 50 mg Magnesium 400 Mg (Own Med) 0 mg PO DAILY [facility] Last Admin: 10/08/18 09:34 Dose: 400 mg Cholecalciferol ( Vitamin D3) 5,000 Unit TabOwn Med 5,000 each PO DAILY [facility] Last Admin: 10/08/18 09:34 Dose: 5,000 each Ondansetron HCl (Zofran) 4 mg IVPUSH Q6H PRN PRN Reason: Nausea/Vomiting Ondansetron HCl (Zofran Odt) 4 mg PO Q6H PRN PRN Reason: nausea, able to take PO Potassium Chloride (Klor-Con 10) 10 meq PO BIDMEALS [facility] Last Admin: 10/08/18 09:32 Dose: 10 meq Rivaroxaban (Xarelto) 20 mg PO DAILY [facility] Last Admin: 10/08/18 09:31 Dose: 20 mg Simvastatin (Zocor) 20 mg PO BEDTIME [facility] Last Admin: 10/07/18 21:00 Dose: 20 mg Discontinued Medications Cholecalciferol (Vitamin D3) 5,000 units PO DAILY [facility] Last Admin: 10/06/18 08:13 Dose: 5,000 units Cholecalciferol ( Vitamin D3) 5,000 Unit TabOwn Med 5,000 each PO DAILY [facility] - Exam General: Reports: Alert, Oriented Neck: Reports: Supple Lungs: Reports: Clear to Auscultation, Normal Respiratory Effort Cardiovascular: Reports: Regular Rate, Regular Rhythm GI/Abdominal Exam: Normal Bowel Sounds, Soft, Non-Tender Extremities: No Pedal Edema
[2018-10-08] MEDS ORDERED: atorvaSTATin 20 MG Tab PO SCH (21:00)
== END 2018-10-08 13:45 | disposition home or self-care (01) | DRG 57 ==
LOC: UNDOADMIN 11:35 → DL.MS 11:35
PROVIDERS: ADMIT Hospitalist; ATTEND Internal Medicine
DX: I69.354 Hemiplegia and hemiparesis following cerebral infarction affecting left non-dominant side (principal); I50.22 Chronic systolic (congestive) heart failure; I25.10 Atherosclerotic heart disease of native coronary artery without angina pectoris; I48.91 Unspecified atrial fibrillation; E78.00 Pure hypercholesterolemia, unspecified; G51.0 Bell's palsy; I11.0 Hypertensive heart disease with heart failure; F17.210 Nicotine dependence, cigarettes, uncomplicated; H91.90 Unspecified hearing loss, unspecified ear; Z95.0 Presence of cardiac pacemaker; Z79.82 Long term (current) use of aspirin; Z98.49 Cataract extraction status, unspecified eye; Z90.49 Acquired absence of other specified parts of digestive tract; Z79.899 Other long term (current) drug therapy; Z79.01 Long term (current) use of anticoagulants
CPT/HCPCS: 97110-GO; 97110-GP; 97116-GP; 97162-GP; 97165-GO; 97530-GO; 97535-GO; A9270-GY

== ENCOUNTER → 2018-10-10 | Outpatient (CLI) | payer MEDICARE, OTHER | LOC: DL.CLIN 09:30 | CPT/HCPCS: 99213 ==

== ENCOUNTER 2020-01-20 10:44 | Inpatient (IN) | payer MEDICARE, OTHER ==
[2020-01-20] MEDS ORDERED: Acetaminophen 325 MG Tab PO PRN ×2 (16:01→16:09)
[2020-01-20] MEDS ORDERED: Docusate Sodium 100 MG Cap PO PRN (16:01)
[2020-01-20] MEDS ORDERED: Albuterol 0.083% 2.5 MG/3 ML Neb Soln INH PRN (16:06)
--- NOTE | 2020-01-20 16:19 | PCM.HP ---
H&P History of Present Illness - General Date of Service: 01/20/20 Admit Problem/Dx: Admission Diagnosis/Problem Admission Diagnosis/Problem Weakness Source of Information: Patient - History of Present Illness Initial Comments - Free Text/Narative: The patient is an 84-year-old man with medical history of hypertension, atrial fibrillation, dyslipidemia. The patient fell and sustained a right hip fracture. He underwent surgery. Patient has been getting physical therapy. Transferred to [facility] for continuation of physical and occupational therapy at a swing bed. At this time he indicated that he has pain of the right hip. It is intermittent. It is dull in nature. Worse with activity and better resting. Right Hip Pain Score (Numeric/FACES): 5 - Related Data Allergies/Adverse Reactions: Allergies Allergy/AdvReac Type Severity Reaction Status Date / Time No Known Allergies Allergy Verified 01/20/20 12:52 Home Medications: Home Meds FLUoxetine HCl [Fluoxetine HCl] 40 mg PO DAILY 09/20/13 [History] Flecainide Acetate 50 mg PO BIDMEALS 05/10/16 [History] Metoprolol Succinate 50 mg PO DAILY 05/10/16 [History] Rivaroxaban [Xarelto] 20 mg PO DAILY 05/10/16 [History] Aspirin [Halfprin] 81 mg PO DAILY 10/03/18 [History] Lisinopril 20 mg PO DAILY 10/03/18 [History] atorvaSTATin [Lipitor] 20 mg PO BEDTIME #30 tablet 10/08/18 [Rx] Cyanocobalamin (Vitamin B-12) [B-12] 1,000 mcg PO DAILY 04/29/19 [History] Acetaminophen [Acetaminophen Extra Strength] 1,000 mg PO Q8HR 01/20/20 [History] Albuterol [Proventil Neb Soln] 1 vial INH QID PRN 01/20/20 [History] Bumetanide [Bumex] 2 mg PO BID 01/20/20 [History] Cholecalciferol (Vitamin D3) [Vitamin D3] 5,000 unit PO DAILY 01/20/20 [History] Ferrous Sulfate 325 mg PO DAILY 01/20/20 [History] Ibuprofen [Advil] 400 mg PO Q6HR PRN 01/20/20 [History] Magnesium Oxide 250 mg PO DAILY 01/20/20 [History] Nicotine [Nicotine Patch] 7 mg TOP DAILY 01/20/20 [History] Potassium Chloride 10 meq PO ASDIRECTED 01/20/20 [History] Remove Patch 1 patch TOP DAILY 01/20/20 [History] Sennosides/Docusate Sodium [Senna-S] 2 tab PO BID PRN 01/20/20 [History] oxyCODONE 10 mg PO Q4HR PRN 01/20/20 [History] traMADol [Ultram] 1 tab PO Q6HR PRN 01/20/20 [History] Past Medical History HEENT History: Reports: Hard of Hearing, Other (See Below) Other HEENT History: cleft pallet, wears glasses Cardiovascular History: Reports: Heart Failure, High Cholesterol, Hypertension, Pacemaker Respiratory History: Reports: Sleep Apnea, SOB Other Respiratory History: uses CPAP at home, narcalepsy Gastrointestinal History: Reports: GI Bleed Genitourinary History: Reports: Urinary Incontinence, Other (See Below) Other Genitourinary History: at times Neurological History: Reports: CVA, Other (See Below) Other Neuro History: [place] [facility]y Psychiatric History: Reports: None Endocrine/Metabolic History: Reports: None Hematologic History: Reports: Blood Transfusion(s) Immunologic History: Reports: None Oncologic (Cancer) History: Reports: None Dermatologic History: Reports: None - Infectious Disease History Infectious Disease History: Reports: Measles - Past Surgical History Head Surgeries/Procedures: Reports: None HEENT Surgical History: Reports: Cataract Surgery, Other (See Below) Other HEENT Surgeries/Procedures: left eyelid surgery Cardiovascular Surgical History: Reports: None Respiratory Surgical History: Reports: None GI Surgical History: Reports: Appendectomy, Colonoscopy, Other (See Below) Neurological Surgical History: Reports: None Musculoskeletal Surgical History: Reports: Other (See Below) Other Musculoskeletal Surgeries/Procedures:: Needs Rt. hip replacement. Oncologic Surgical History: Reports: None Dermatological Surgical History: Reports: Skin Biopsy, Other (See Below) Social & Family History - Family History Family Medical History: Noncontributory - Tobacco Use Smoking Status *Q: Current Every Day Smoker Years of Tobacco use: 40 Packs/Tins Daily: 0.5 - Caffeine Use Caffeine Use: Reports: Coffee Caffeine Use Comment: decaff only - Recreational Drug Use Recreational Drug Use: No - Living Situation & Occupation Living situation: Reports: with Spouse H&P Review of Systems - Review of Systems: Review Of Systems: See Below General: Reports: Weakness HEENT: Reports: No Symptoms Pulmonary: Reports: No Symptoms Cardiovascular: Reports: No Symptoms Gastrointestinal: Reports: No Symptoms Musculoskeletal: Reports: No Symptoms Skin: Reports: No Symptoms Psychiatric: Reports: No Symptoms Exam - Exam Exam: See Below - Vital Signs Weight: 85.91 kg - Exam General: Alert, Oriented, Cooperative HEENT: PERRLA, Hearing Intact, Mucosa Moist & [place], Nares Patent, Normal Nasal Septum, Posterior Pharynx Clear, Conjunctiva Clear, EOMI, EACs Clear, TMs Clear Neck: Supple, Trachea Midline, 2 Lungs: Clear to Auscultation, Normal Respiratory Effort Cardiovascular: Regular Rate, Regular Rhythm Extremities: Normal Inspection, Normal Range of Motion, Non-Tender, No Pedal Edema, Normal Capillary Refill, Other (Status post surgery right hip. Surgical incision noted.) Problem List Initiated/Reviewed/Updated: Yes Orders Last 24hrs: Active Orders 24 hr Category Date Time Status Patient Status [ADT] Routine ADT 01/20/20 16:01 Active Influenza Vaccine Charge [RC] .DISCHARGE Care 01/20/20 15:13 Active Intake and Output [RC] QSHIFT Care 01/20/20 16:02 Active Oxygen Therapy [RC] PRN Care 01/20/20 16:01 Active RT Aerosol Therapy [RC] ASDIRECTED Care 01/20/20 16:08 Active Up ad Anaid [RC] ASDIRECTED Care 01/20/20 16:01 Active VTE/DVT Education [RC] PER UNIT ROUTINE Care 01/20/20 16:01 Active Vital Signs [RC] Q4H Care 01/20/20 16:01 Active OT Evaluation and Treatment [CONS] Routine Cons 01/20/20 16:01 Active PT Evaluation and Treatment [CONS] Routine Cons 01/20/20 16:01 Active Regular Diet [DIET] Diet 01/20/20 Lunch Active BASIC METABOLIC PANEL,BMP [CHEM] AM Lab 01/21/20 05:11 Ordered Acetaminophen [TylenoL] Med 01/20/20 16:09 Ordered 650 mg PO Q8H PRN Acetaminophen [Tylenol Extra Strength] Med 01/20/20 22:00 Ordered 1,000 mg PO Q8HR Albuterol [Proventil Neb Soln] Med 01/20/20 16:06 Ordered DOSE mg INH QID PRN Aspirin [Halfprin] Med 01/21/20 09:00 Ordered 81 mg PO DAILY Bumetanide [Bumex] Med 01/20/20 21:00 Ordered 2 mg PO BID Cholecalciferol (Vitamin D3) Med 01/21/20 09:00 Ordered 5,000 unit PO DAILY Cyanocobalamin (Vitamin B12) [Vitamin B12] Med 01/21/20 09:00 Ordered 1,000 mcg PO DAILY Docusate Sodium/Sennosides [Senna Plus] Med 01/20/20 16:06 Ordered 2 tab PO BID PRN FLUoxetine HCl [Fluoxetine HCl] Med 01/21/20 09:00 Ordered 40 mg PO DAILY Ferrous Sulfate Med 01/21/20 09:00 Ordered 325 mg PO DAILY Flecainide Acetate [Flecainide Acetate] Med 01/20/20 18:00 Ordered 50 mg PO BIDMEALS Magnesium Oxide Med 01/21/20 09:00 Ordered 250 mg PO DAILY Metoprolol Succinate [Toprol XL] Med 01/21/20 09:00 Ordered 50 mg PO DAILY Nicotine [Habitrol] Med 01/21/20 09:00 Ordered 7 mg TOP DAILY Potassium Chloride [Potassium Chloride] Med 01/20/20 16:15 Ordered 10 meq PO ASDIRECTED Rivaroxaban [Xarelto] Med 01/21/20 09:00 Ordered 20 mg PO DAILY lisinopriL [Prinivil] Med 01/21/20 09:00 Ordered 20 mg PO DAILY traMADol [Ultram] Med 01/20/20 16:06 Ordered 50 mg PO Q6HR PRN Resuscitation Status Routine Resus Stat 01/20/20 16:01 Ordered Medication Orders Acetaminophen (Tylenol Extra Strength) 1,000 mg PO Q8HR [facility] Acetaminophen (Tylenol) 650 mg PO Q8H PRN PRN Reason: Pain (Mild 1-3)/fever Albuterol (Proventil Neb Soln) mg INH QID PRN PRN Reason: Shortness of Breath Aspirin (Halfprin) 81 mg PO DAILY [facility] Cyanocobalamin (Vitamin B12) 1,000 mcg PO DAILY [facility] Ferrous Sulfate (Ferrous Sulfate) 325 mg PO DAILY [facility] Lisinopril (Prinivil) 20 mg PO DAILY [facility] Magnesium Oxide (Magnesium Oxide) 250 mg PO DAILY [facility] Metoprolol Succinate (Toprol Xl) 50 mg PO DAILY [facility] Nicotine (Habitrol) 7 mg TOP DAILY [facility] Non-Formulary Medication (Bumetanide [Bumex]) 2 mg PO BID [facility] Non-Formulary Medication (Cholecalciferol (Vitamin D3)) 5,000 unit PO DAILY [facility] Non-Formulary Medication (Flecainide Acetate [Flecainide Acetate]) 50 mg PO BIDMEALS [facility] Non-Formulary Medication (Fluoxetine Hcl [Fluoxetine Hcl]) 40 mg PO DAILY [facility] Non-Formulary Medication (Potassium Chloride [Potassium Chloride]) 10 meq PO ASDIRECTED [facility] Non-Formulary Medication (Rivaroxaban [Xarelto]) 20 mg PO DAILY [facility] Senna/Docusate Sodium (Senna Plus) 2 tab PO BID PRN PRN Reason: Constipation Tramadol HCl (Ultram) 50 mg PO Q6HR PRN PRN Reason: Pain Assessment/Plan Comment:: Patient is an 84 year old mom transferred to the swing bed status post surgery for right hip fracture. #. Status post surgery for right hip fracture Patient does have some pain at this point #. Acute kidney injury Serum creatinine has been elevated up to 1.4 #. Acute blood loss anemia #. History of diastolic congestive heart failure Angela decompensated at this point #. Atrial fibrillation On chronic anticoagulation and also on antiarrhythmic agent #. Hypertension Blood pressure is within acceptable limits Plan: Admit patient to swing bed Consult physical therapy Consult occupational therapy Activity as tolerated Obtain complete blood count Obtain basic metabolic panel
[2020-01-20] MEDS ORDERED: Potassium Chloride 10 MEQ Tab.ER PO SCH (17:15)
[2020-01-20] MEDS: FLECAINIDE ACETATE 100 MG PO SCH (17:51)
[2020-01-20] MEDS: traMADol 50 MG Tab PO PRN (19:47)
[2020-01-20] MEDS ORDERED: Heparin Sodium 5,000 Units/ML Vial SUBCUT SCH (21:00)
[2020-01-20] MEDS: Acetaminophen 500 MG Tab PO SCH (21:01)
[2020-01-20] MEDS ORDERED: Acetaminophen 500 MG Tab PO SCH (22:00)
[2020-01-21 06:53] LABS: ANION GAP 9.9 mEq/L (7-13); CHLORIDE,CL 105 mmol/L (98-107); SODIUM,NA 140 mmol/L (136-145)
[2020-01-21] MEDS: Ferrous Sulfate 325 MG Tab PO SCH (08:40)
[2020-01-21] MEDS: Lisinopril 20 MG Tab PO SCH (08:40)
[2020-01-21] MEDS: Cyanocobalamin (Vitamin B12) 1,000 MCG Tab PO SCH (08:40)
[2020-01-21] MEDS: Potassium Chloride 10 MEQ Tab.ER PO SCH (08:41)
[2020-01-21] MEDS: FLUoxetine 10 MG Cap PO SCH (08:41)
[2020-01-21] MEDS: Bumetanide 1 MG Tab PO SCH ×2 (08:41→14:01)
[2020-01-21] MEDS: Metoprolol Succinate 50 MG Tab.ER PO SCH (08:41)
[2020-01-21] MEDS: Cholecalciferol (Vitamin D3) 25 MCG Tab PO SCH (08:42)
[2020-01-21] MEDS: Rivaroxaban 10 MG Tab PO SCH (08:43)
[2020-01-21] MEDS: Acetaminophen 500 MG Tab PO SCH ×2 (08:44→20:46)
[2020-01-21] MEDS: Nicotine 7 MG/24 Hr Patch TOP SCH (08:45)
[2020-01-21] MEDS: FLECAINIDE ACETATE 100 MG PO SCH ×2 (08:46→17:58)
[2020-01-21] MEDS: Aspirin 81 MG Tab.EC PO SCH (08:47)
[2020-01-21] MEDS: traMADol 50 MG Tab PO PRN ×2 (08:47→17:57)
[2020-01-22] MEDS: FLUoxetine 10 MG Cap PO SCH (09:03)
[2020-01-22] MEDS: Cholecalciferol (Vitamin D3) 25 MCG Tab PO SCH (09:03)
[2020-01-22] MEDS: Ferrous Sulfate 325 MG Tab PO SCH (09:04)
[2020-01-22] MEDS: Bumetanide 1 MG Tab PO SCH ×2 (09:04→13:58)
[2020-01-22] MEDS: Cyanocobalamin (Vitamin B12) 1,000 MCG Tab PO SCH (09:04)
[2020-01-22] MEDS: Potassium Chloride 10 MEQ Tab.ER PO SCH (09:04)
[2020-01-22] MEDS: Lisinopril 20 MG Tab PO SCH (09:05)
[2020-01-22] MEDS: Metoprolol Succinate 50 MG Tab.ER PO SCH (09:05)
[2020-01-22] MEDS: Rivaroxaban 10 MG Tab PO SCH (09:05)
[2020-01-22] MEDS: Acetaminophen 500 MG Tab PO SCH ×2 (09:05→21:26)
[2020-01-22] MEDS: Nicotine 7 MG/24 Hr Patch TOP SCH (09:09)
[2020-01-22] MEDS: Aspirin 81 MG Tab.EC PO SCH (09:09)
[2020-01-22] MEDS: FLECAINIDE ACETATE 100 MG PO SCH ×2 (09:11→17:19)
[2020-01-22] MEDS: traMADol 50 MG Tab PO PRN (21:28)
[2020-01-23] MEDS: Cyanocobalamin (Vitamin B12) 1,000 MCG Tab PO SCH (09:24)
[2020-01-23] MEDS: Potassium Chloride 10 MEQ Tab.ER PO SCH (09:24)
[2020-01-23] MEDS: Cholecalciferol (Vitamin D3) 25 MCG Tab PO SCH (09:24)
[2020-01-23] MEDS: Ferrous Sulfate 325 MG Tab PO SCH (09:25)
[2020-01-23] MEDS: Metoprolol Succinate 50 MG Tab.ER PO SCH (09:25)
[2020-01-23] MEDS: FLUoxetine 10 MG Cap PO SCH (09:26)
[2020-01-23] MEDS: Lisinopril 20 MG Tab PO SCH (09:26)
[2020-01-23] MEDS: Aspirin 81 MG Tab.EC PO SCH (09:26)
[2020-01-23] MEDS: Rivaroxaban 10 MG Tab PO SCH (09:26)
[2020-01-23] MEDS: Acetaminophen 500 MG Tab PO SCH ×2 (09:27→20:10)
[2020-01-23] MEDS: Nicotine 7 MG/24 Hr Patch TOP SCH (09:28)
[2020-01-23] MEDS: Bumetanide 1 MG Tab PO SCH ×2 (09:28→14:57)
[2020-01-23] MEDS: FLECAINIDE ACETATE 100 MG PO SCH ×2 (09:39→17:39)
[2020-01-23] MEDS: traMADol 50 MG Tab PO PRN ×2 (10:02→19:33)
[2020-01-24] MEDS: FLECAINIDE ACETATE 100 MG PO SCH ×2 (09:00→18:07)
[2020-01-24] MEDS: Bumetanide 1 MG Tab PO SCH ×2 (09:00→15:24)
[2020-01-24] MEDS: Cyanocobalamin (Vitamin B12) 1,000 MCG Tab PO SCH (10:01)
[2020-01-24] MEDS: Nicotine 7 MG/24 Hr Patch TOP SCH (10:02)
[2020-01-24] MEDS: FLUoxetine 10 MG Cap PO SCH (10:02)
[2020-01-24] MEDS: Cholecalciferol (Vitamin D3) 25 MCG Tab PO SCH (10:02)
[2020-01-24] MEDS: Metoprolol Succinate 50 MG Tab.ER PO SCH (10:03)
[2020-01-24] MEDS: Lisinopril 20 MG Tab PO SCH (10:04)
[2020-01-24] MEDS: Ferrous Sulfate 325 MG Tab PO SCH (10:05)
[2020-01-24] MEDS: Potassium Chloride 10 MEQ Tab.ER PO SCH (10:05)
[2020-01-24] MEDS: Acetaminophen 500 MG Tab PO SCH ×2 (10:05→20:29)
[2020-01-24] MEDS: Rivaroxaban 10 MG Tab PO SCH (10:06)
[2020-01-24] MEDS: Aspirin 81 MG Tab.EC PO SCH (10:06)
[2020-01-24] MEDS: traMADol 50 MG Tab PO PRN (16:06)
[2020-01-25] MEDS: Bumetanide 1 MG Tab PO SCH ×2 (09:22→14:06)
[2020-01-25] MEDS: Cholecalciferol (Vitamin D3) 25 MCG Tab PO SCH (09:23)
[2020-01-25] MEDS: Aspirin 81 MG Tab.EC PO SCH (09:23)
[2020-01-25] MEDS: Rivaroxaban 10 MG Tab PO SCH (09:23)
[2020-01-25] MEDS: FLUoxetine 10 MG Cap PO SCH (09:25)
[2020-01-25] MEDS: Potassium Chloride 10 MEQ Tab.ER PO SCH (09:26)
[2020-01-25] MEDS: Metoprolol Succinate 50 MG Tab.ER PO SCH (09:26)
[2020-01-25] MEDS: Acetaminophen 500 MG Tab PO SCH ×2 (09:27→20:36)
[2020-01-25] MEDS: Ferrous Sulfate 325 MG Tab PO SCH (09:27)
[2020-01-25] MEDS: Lisinopril 20 MG Tab PO SCH (09:27)
[2020-01-25] MEDS: FLECAINIDE ACETATE 100 MG PO SCH ×2 (09:28→17:15)
[2020-01-25] MEDS: Nicotine 7 MG/24 Hr Patch TOP SCH (09:29)
[2020-01-25] MEDS: Cyanocobalamin (Vitamin B12) 1,000 MCG Tab PO SCH (09:30)
[2020-01-26] MEDS: Bumetanide 1 MG Tab PO SCH ×2 (08:17→13:59)
[2020-01-26] MEDS: Ferrous Sulfate 325 MG Tab PO SCH (08:18)
[2020-01-26] MEDS: FLUoxetine 10 MG Cap PO SCH (08:18)
[2020-01-26] MEDS: Aspirin 81 MG Tab.EC PO SCH (08:18)
[2020-01-26] MEDS: Potassium Chloride 10 MEQ Tab.ER PO SCH (08:18)
[2020-01-26] MEDS: Cyanocobalamin (Vitamin B12) 1,000 MCG Tab PO SCH (08:19)
[2020-01-26] MEDS: Cholecalciferol (Vitamin D3) 25 MCG Tab PO SCH (08:19)
[2020-01-26] MEDS: Rivaroxaban 10 MG Tab PO SCH (08:19)
[2020-01-26] MEDS: Lisinopril 20 MG Tab PO SCH (08:21)
[2020-01-26] MEDS: Metoprolol Succinate 50 MG Tab.ER PO SCH (08:21)
[2020-01-26] MEDS: Acetaminophen 500 MG Tab PO SCH ×2 (08:22→20:40)
[2020-01-26] MEDS: FLECAINIDE ACETATE 100 MG PO SCH ×2 (08:26→18:23)
[2020-01-26] MEDS: Nicotine 7 MG/24 Hr Patch TOP SCH (08:26)
[2020-01-26] MEDS: traMADol 50 MG Tab PO PRN (11:30)
[2020-01-26] MEDS: Melatonin 3 MG Tab PO PRN (20:58)
[2020-01-27] MEDS: Nicotine 7 MG/24 Hr Patch TOP SCH (08:08)
[2020-01-27] MEDS: Acetaminophen 500 MG Tab PO SCH ×2 (08:08→21:46)
[2020-01-27] MEDS: Metoprolol Succinate 50 MG Tab.ER PO SCH (08:08)
[2020-01-27] MEDS: traMADol 50 MG Tab PO PRN ×2 (08:09→15:23)
[2020-01-27] MEDS: Potassium Chloride 10 MEQ Tab.ER PO SCH (08:09)
[2020-01-27] MEDS: Ferrous Sulfate 325 MG Tab PO SCH (08:09)
[2020-01-27] MEDS: Cyanocobalamin (Vitamin B12) 1,000 MCG Tab PO SCH (08:09)
[2020-01-27] MEDS: Lisinopril 20 MG Tab PO SCH (08:09)
[2020-01-27] MEDS: Bumetanide 1 MG Tab PO SCH ×2 (08:09→15:23)
[2020-01-27] MEDS: Aspirin 81 MG Tab.EC PO SCH (08:09)
[2020-01-27] MEDS: Rivaroxaban 10 MG Tab PO SCH (08:09)
[2020-01-27] MEDS: FLUoxetine 10 MG Cap PO SCH (08:09)
[2020-01-27] MEDS: Cholecalciferol (Vitamin D3) 25 MCG Tab PO SCH (08:10)
[2020-01-27] MEDS: FLECAINIDE ACETATE 100 MG PO SCH ×2 (08:10→17:25)
[2020-01-27 08:12] LABS: ANION GAP 9.6 mEq/L (7-13)
--- NOTE | 2020-01-27 09:20 | PN ---
DATE: 01/27/2020 SUBJECTIVE: The patient is an 84-year-old gentleman, who had a right hip fracture and underwent surgery, admitted to swing bed for physical therapy and occupational therapy, and the patient is doing well. The patient denies any significant ongoing complaints. No chest pain or shortness of breath or abdominal pain. OBJECTIVE: Vital Signs: Blood pressure is 117/63, pulse is 84, respirations of 16, temperature of 100.2, and saturation is 97% on room air. Heart: Regular rate and rhythm. Lungs: Have diminished breath sounds on both bases but no crackles and no wheezing. Abdomen: Soft and nontender. Bowel sounds are positive. Extremities: Negative for any significant pedal edema. No calf tenderness. MEDICATIONS: Reviewed. PLAN: We will continue with his present management and continue with PT and OT, and CBC and basic metabolic panel are ordered for today. [facility] /[id number]
[2020-01-27] MEDS: Melatonin 3 MG Tab PO PRN (21:46)
[2020-01-28] MEDS: Nicotine 7 MG/24 Hr Patch TOP SCH (08:19)
[2020-01-28] MEDS: Rivaroxaban 10 MG Tab PO SCH (08:21)
[2020-01-28] MEDS: Metoprolol Succinate 50 MG Tab.ER PO SCH (08:21)
[2020-01-28] MEDS: Potassium Chloride 10 MEQ Tab.ER PO SCH (08:21)
[2020-01-28] MEDS: Lisinopril 20 MG Tab PO SCH (08:21)
[2020-01-28] MEDS: Cyanocobalamin (Vitamin B12) 1,000 MCG Tab PO SCH (08:21)
[2020-01-28] MEDS: FLUoxetine 10 MG Cap PO SCH (08:21)
[2020-01-28] MEDS: Cholecalciferol (Vitamin D3) 25 MCG Tab PO SCH (08:21)
[2020-01-28] MEDS: Bumetanide 1 MG Tab PO SCH ×2 (08:21→14:06)
[2020-01-28] MEDS: Acetaminophen 500 MG Tab PO SCH ×2 (08:22→20:21)
[2020-01-28] MEDS: Aspirin 81 MG Tab.EC PO SCH (08:22)
[2020-01-28] MEDS: Ferrous Sulfate 325 MG Tab PO SCH (08:22)
[2020-01-28] MEDS: FLECAINIDE ACETATE 100 MG PO SCH ×2 (08:23→17:10)
[2020-01-28] MEDS: traMADol 50 MG Tab PO PRN ×2 (10:19→19:15)
[2020-01-28] MEDS: Melatonin 3 MG Tab PO PRN (20:22)
[2020-01-29] MEDS: Nicotine 7 MG/24 Hr Patch TOP SCH (09:06)
[2020-01-29] MEDS: FLECAINIDE ACETATE 100 MG PO SCH ×2 (09:08→17:40)
[2020-01-29] MEDS: Aspirin 81 MG Tab.EC PO SCH (09:09)
[2020-01-29] MEDS: Rivaroxaban 10 MG Tab PO SCH (09:09)
[2020-01-29] MEDS: Cholecalciferol (Vitamin D3) 25 MCG Tab PO SCH (09:09)
[2020-01-29] MEDS: FLUoxetine 10 MG Cap PO SCH (09:09)
[2020-01-29] MEDS: Bumetanide 1 MG Tab PO SCH ×2 (09:09→13:23)
[2020-01-29] MEDS: Lisinopril 20 MG Tab PO SCH (09:10)
[2020-01-29] MEDS: Acetaminophen 500 MG Tab PO SCH ×2 (09:10→20:38)
[2020-01-29] MEDS: Potassium Chloride 10 MEQ Tab.ER PO SCH (09:11)
[2020-01-29] MEDS: Cyanocobalamin (Vitamin B12) 1,000 MCG Tab PO SCH (09:11)
[2020-01-29] MEDS: Ferrous Sulfate 325 MG Tab PO SCH (09:11)
[2020-01-29] MEDS: Metoprolol Succinate 50 MG Tab.ER PO SCH (09:11)
[2020-01-29] MEDS: traMADol 50 MG Tab PO PRN (09:11)
[2020-01-29] MEDS: Melatonin 3 MG Tab PO PRN (20:39)
[2020-01-30] MEDS: FLECAINIDE ACETATE 100 MG PO SCH ×2 (09:00→17:33)
[2020-01-30] MEDS: Nicotine 7 MG/24 Hr Patch TOP SCH (09:01)
[2020-01-30] MEDS: Cholecalciferol (Vitamin D3) 25 MCG Tab PO SCH (09:03)
[2020-01-30] MEDS: Acetaminophen 500 MG Tab PO SCH ×2 (09:03→20:54)
[2020-01-30] MEDS: FLUoxetine 10 MG Cap PO SCH (09:03)
[2020-01-30] MEDS: Cyanocobalamin (Vitamin B12) 1,000 MCG Tab PO SCH (09:04)
[2020-01-30] MEDS: Bumetanide 1 MG Tab PO SCH ×2 (09:04→14:16)
[2020-01-30] MEDS: Lisinopril 20 MG Tab PO SCH (09:05)
[2020-01-30] MEDS: Rivaroxaban 10 MG Tab PO SCH (09:05)
[2020-01-30] MEDS: Aspirin 81 MG Tab.EC PO SCH (09:05)
[2020-01-30] MEDS: Metoprolol Succinate 50 MG Tab.ER PO SCH (09:05)
[2020-01-30] MEDS: Ferrous Sulfate 325 MG Tab PO SCH (09:06)
[2020-01-30] MEDS: Potassium Chloride 10 MEQ Tab.ER PO SCH (09:06)
[2020-01-31] MEDS: FLECAINIDE ACETATE 100 MG PO SCH ×2 (08:34→17:21)
[2020-01-31] MEDS: Acetaminophen 500 MG Tab PO SCH ×2 (08:34→20:33)
[2020-01-31] MEDS: Metoprolol Succinate 50 MG Tab.ER PO SCH (08:35)
[2020-01-31] MEDS: FLUoxetine 10 MG Cap PO SCH (08:35)
[2020-01-31] MEDS: Cyanocobalamin (Vitamin B12) 1,000 MCG Tab PO SCH (08:36)
[2020-01-31] MEDS: Rivaroxaban 10 MG Tab PO SCH (08:36)
[2020-01-31] MEDS: Ferrous Sulfate 325 MG Tab PO SCH (08:36)
[2020-01-31] MEDS: Lisinopril 20 MG Tab PO SCH (08:36)
[2020-01-31] MEDS: Aspirin 81 MG Tab.EC PO SCH (08:36)
[2020-01-31] MEDS: Potassium Chloride 10 MEQ Tab.ER PO SCH (08:36)
[2020-01-31] MEDS: Nicotine 7 MG/24 Hr Patch TOP SCH (08:37)
[2020-01-31] MEDS: Bumetanide 1 MG Tab PO SCH ×2 (11:14→16:29)
[2020-01-31] MEDS: Cholecalciferol (Vitamin D3) 25 MCG Tab PO SCH (11:14)
[2020-01-31] MEDS ORDERED: cefTRIAXone 1 GM in Sodium Chloride 0.9% 50 ML IV ONE (15:30)
[2020-01-31] MEDS: cefTRIAXone 1 GM in Sodium Chloride 0.9% 50 ML IV SCH (15:58)
[2020-02-01] MEDS: Lisinopril 20 MG Tab PO SCH (08:56)
[2020-02-01] MEDS: Cholecalciferol (Vitamin D3) 25 MCG Tab PO SCH (08:56)
[2020-02-01] MEDS: Potassium Chloride 10 MEQ Tab.ER PO SCH (08:56)
[2020-02-01] MEDS: Rivaroxaban 10 MG Tab PO SCH (08:57)
[2020-02-01] MEDS: Ferrous Sulfate 325 MG Tab PO SCH (08:58)
[2020-02-01] MEDS: Bumetanide 1 MG Tab PO SCH ×2 (08:58→14:23)
[2020-02-01] MEDS: Cyanocobalamin (Vitamin B12) 1,000 MCG Tab PO SCH (08:58)
[2020-02-01] MEDS: FLUoxetine 10 MG Cap PO SCH (08:58)
[2020-02-01] MEDS: Acetaminophen 500 MG Tab PO SCH ×2 (08:59→20:19)
[2020-02-01] MEDS: Metoprolol Succinate 50 MG Tab.ER PO SCH (08:59)
[2020-02-01] MEDS: Nicotine 7 MG/24 Hr Patch TOP SCH (09:00)
[2020-02-01] MEDS: Aspirin 81 MG Tab.EC PO SCH (09:00)
[2020-02-01] MEDS: FLECAINIDE ACETATE 100 MG PO SCH ×2 (09:04→17:59)
[2020-02-01] MEDS: Sodium Chloride 0.9% 10 ML Syringe FLUSH PRN (14:22)
[2020-02-01] MEDS: cefTRIAXone 1 GM in Sodium Chloride 0.9% 50 ML IV SCH (14:23)
[2020-02-01] MEDS: Melatonin 3 MG Tab PO PRN (20:18)
[2020-02-02] MEDS: Nicotine 7 MG/24 Hr Patch TOP SCH (08:14)
[2020-02-02] MEDS: Cholecalciferol (Vitamin D3) 25 MCG Tab PO SCH (08:15)
[2020-02-02] MEDS: Aspirin 81 MG Tab.EC PO SCH (08:16)
[2020-02-02] MEDS: Metoprolol Succinate 50 MG Tab.ER PO SCH (08:16)
[2020-02-02] MEDS: Potassium Chloride 10 MEQ Tab.ER PO SCH (08:17)
[2020-02-02] MEDS: Ferrous Sulfate 325 MG Tab PO SCH (08:17)
[2020-02-02] MEDS: Cyanocobalamin (Vitamin B12) 1,000 MCG Tab PO SCH (08:17)
[2020-02-02] MEDS: Bumetanide 1 MG Tab PO SCH ×2 (08:17→13:50)
[2020-02-02] MEDS: FLUoxetine 10 MG Cap PO SCH (08:17)
[2020-02-02] MEDS: Rivaroxaban 10 MG Tab PO SCH (08:18)
[2020-02-02] MEDS: FLECAINIDE ACETATE 100 MG PO SCH ×2 (08:18→17:30)
[2020-02-02] MEDS: Lisinopril 20 MG Tab PO SCH (08:18)
[2020-02-02] MEDS: Acetaminophen 500 MG Tab PO SCH ×2 (08:19→20:02)
[2020-02-02] MEDS: cefTRIAXone 1 GM in Sodium Chloride 0.9% 50 ML IV SCH (13:50)
[2020-02-02] MEDS: Sodium Chloride 0.9% 10 ML Syringe FLUSH PRN (13:51)
[2020-02-02] MEDS: Melatonin 3 MG Tab PO PRN (20:01)
[2020-02-02] MEDS: traMADol 50 MG Tab PO PRN (20:01)
[2020-02-03 06:28] LABS: ANION GAP 10.3 mEq/L (7-13); CHLORIDE,CL 104 mmol/L (98-107); SODIUM,NA 142 mmol/L (136-145)
[2020-02-03] MEDS: Ascorbic Acid 500 MG Tab PO SCH (08:58)
[2020-02-03] MEDS: FLUoxetine 10 MG Cap PO SCH (08:58)
[2020-02-03] MEDS: Rivaroxaban 10 MG Tab PO SCH (08:59)
[2020-02-03] MEDS: Cyanocobalamin (Vitamin B12) 1,000 MCG Tab PO SCH (08:59)
[2020-02-03] MEDS: Acetaminophen 500 MG Tab PO SCH ×2 (09:00→20:32)
[2020-02-03] MEDS: Cholecalciferol (Vitamin D3) 25 MCG Tab PO SCH (09:00)
[2020-02-03] MEDS: Nicotine 7 MG/24 Hr Patch TOP SCH (09:01)
[2020-02-03] MEDS: Aspirin 81 MG Tab.EC PO SCH (09:01)
[2020-02-03] MEDS: Metoprolol Succinate 50 MG Tab.ER PO SCH (09:03)
[2020-02-03] MEDS: Ferrous Sulfate 325 MG Tab PO SCH (09:03)
[2020-02-03] MEDS: Potassium Chloride 10 MEQ Tab.ER PO SCH ×3 (09:04→20:32)
[2020-02-03] MEDS: Bumetanide 1 MG Tab PO SCH ×2 (09:04→15:28)
[2020-02-03] MEDS: Lisinopril 20 MG Tab PO SCH (09:04)
[2020-02-03] MEDS: FLECAINIDE ACETATE 100 MG PO SCH ×2 (09:06→18:53)
--- NOTE | 2020-02-03 09:27 | PCM.PN ---
- General Info Date of Service: 02/03/20 Admission Dx/Problem (Free Text): Admission Diagnosis/Problem Admission Diagnosis/Problem Weakness Subjective Update: Patient is an 84-year-old man with medical history of hypertension, atrial fibrillation, dyslipidemia, mechanical fall with sustained right hip fracture status post surgery. Patient was transferred here for continuation of physical therapy and Occupational Therapy. Patient seen and examined today. States he is doing well. Participating with physical occupational therapy. Reports that his strength is improving. Functional Status: Reports: Pain Controlled - Review of Systems General: Reports: No Symptoms HEENT: Reports: No Symptoms Pulmonary: Reports: No Symptoms Cardiovascular: Reports: No Symptoms Gastrointestinal: Reports: No Symptoms Genitourinary: Reports: No Symptoms Musculoskeletal: Reports: No Symptoms Skin: Reports: No Symptoms Neurological: Reports: No Symptoms Psychiatric: Reports: No Symptoms - Patient Data Vitals - Most Recent: Last Vital Signs Temp 98.2 F 02/02/20 20:00 Pulse 71 02/03/20 09:03 Resp 16 02/02/20 20:00 BP 122/85 02/03/20 09:04 Pulse Ox 96 02/02/20 20:00 Weight - Most Recent: 189 lb I&O - Last 24 Hours: Intake & Output 02/02/20 02/03/20 02/03/20 22:59 06:59 14:59 Intake Total 290 700 Output Total 300 200 Balance -10 500 Lab Results Last 24 Hours: Laboratory Results - last 24 hr 02/03/20 02/03/20 Range/Units 05:39 05:39 WBC 6.4 (5.0-10.0) 10^3/uL RBC 2.29 L (4.6-6.2) 10^6/uL Hgb 7.2 L (14.0-18.0) g/dL Hct 23.1 L (40.0-54.0) % MCV 100.9 H (80-100) fL MCH 31.4 (27.0-34.0) pg MCHC 31.2 L (33.0-35.0) g/dL Plt Count 353 (150-450) 10^3/uL Sodium 142 (136-145) mmol/L Potassium 3.3 L (3.5-5.1) mmol/L Chloride 104 (98-107) mmol/L Carbon Dioxide 31 (21-32) mmol/L Anion Gap 10.3 (7-13) mEq/L BUN 23 H (7-18) mg/dL Creatinine 1.10 (0.70-1.30) mg/dL Est Cr Clr Drug Dosing 41.67 mL/min Estimated GFR (MDRD) > 60 Glucose 90 (74-99) mg/dL Calcium 8.3 L (8.5-10.1) mg/dL Med Orders - Current: Current Medications Acetaminophen (Tylenol Extra Strength) 1,000 mg PO BID [facility] Last Admin: 02/03/20 09:00 Dose: 1,000 mg Documented by: Albuterol (Proventil Neb Soln) 2.5 mg INH QID PRN PRN Reason: Shortness of Breath Ascorbic Acid (Vitamin C) 500 mg PO DAILY [facility] Last Admin: 02/03/20 08:58 Dose: 500 mg Documented by: Aspirin (Halfprin) 81 mg PO DAILY [facility] Last Admin: 02/03/20 09:01 Dose: 81 mg Documented by: Atorvastatin Calcium (Lipitor) 20 mg PO BEDTIME [facility] Bumetanide (Bumex) 2 mg PO BIDDIURETIC [facility] Last Admin: 02/03/20 09:04 Dose: 2 mg Documented by: Cholecalciferol (Vitamin D3) 125 mcg PO DAILY [facility] Last Admin: 02/03/20 09:00 Dose: 125 mcg Documented by: Cyanocobalamin (Vitamin B12) 1,000 mcg PO DAILY [facility] Last Admin: 02/03/20 08:59 Dose: 1,000 mcg Documented by: Ferrous Sulfate (Ferrous Sulfate) 325 mg PO DAILY [facility] Last Admin: 02/03/20 09:03 Dose: 325 mg Documented by: Fluoxetine HCl (Prozac) 40 mg PO DAILY [facility] Last Admin: 02/03/20 08:58 Dose: 40 mg Documented by: Ceftriaxone Sodium 1 gm/ (Sodium Chloride) 50 mls @ 100 mls/hr IV Q24H [facility] Last Infusion: 02/02/20 14:20 Dose: Infused Documented by: Lisinopril (Prinivil) 20 mg PO DAILY [facility] Last Admin: 02/03/20 09:04 Dose: 20 mg Documented by: Magnesium Oxide (Magnesium Oxide) 250 mg PO DAILY [facility] Last Admin: 02/03/20 08:59 Dose: 250 mg Documented by: Melatonin (Melatonin) 6 mg PO BEDTIME PRN PRN Reason: Sleep Last Admin: 02/02/20 20:01 Dose: 6 mg Documented by: Metoprolol Succinate (Toprol Xl) 50 mg PO DAILY [facility] Last Admin: 02/03/20 09:03 Dose: 50 mg Documented by: Nicotine (Habitrol) 7 mg TOP DAILY [facility] Last Admin: 02/03/20 09:01 Dose: 7 mg Documented by: Flecainide Acetate (100mg Pt Own Med) 0 mg PO BIDMEALS [facility] Last Admin: 02/03/20 09:06 Dose: 50 mg Documented by: Potassium Chloride (Klor-Con 10) 40 meq PO BEDTIME [facility] Stop: 02/04/20 23:59 Last Admin: 02/03/20 09:26 Dose: 40 meq Documented by: Potassium Chloride (Klor-Con 10) 10 meq PO DAILY [facility] Last Admin: 02/03/20 09:04 Dose: 10 meq Documented by: Rivaroxaban (Xarelto) 20 mg PO DAILY [facility] Last Admin: 02/03/20 08:59 Dose: 20 mg Documented by: Senna/Docusate Sodium (Senna Plus) 2 tab PO BID PRN PRN Reason: Constipation Last Admin: 01/27/20 08:09 Dose: 2 tab Documented by: Sodium Chloride (Saline Flush) 10 ml FLUSH ASDIRECTED PRN PRN Reason: Keep Vein Open Last Admin: 02/02/20 13:51 Dose: 10 ml Documented by: Tramadol HCl (Ultram) 50 mg PO Q6HR PRN PRN Reason: Pain Last Admin: 02/02/20 20:01 Dose: 50 mg Documented by: Discontinued Medications Acetaminophen (Tylenol) 650 mg PO Q4H PRN PRN Reason: Pain (Mild 1-3)/fever Acetaminophen (Tylenol Extra Strength) 1,000 mg PO Q8HR [facility] Acetaminophen (Tylenol) 650 mg PO Q8H PRN PRN Reason: Pain (Mild 1-3)/fever Docusate Sodium (Colace) 100 mg PO BID PRN PRN Reason: Constipation Heparin Sodium (Porcine) (Heparin Sodium) 5,000 units SUBCUT Q12HR [facility] Ceftriaxone Sodium 1 gm/ (Sodium Chloride) 50 mls @ as directed IV .STK-MED ONE Stop: 01/31/20 15:31 Influenza Virus Vaccine (Fluad Quad Syringe) 60 mcg IM .ONCE ONE Stop: 01/20/20 15:16 Last Admin: 01/20/20 16:16 Dose: 60 mcg Documented by: Potassium Chloride (Klor-Con 10) 10 meq PO ASDIRECTED [facility] - Exam General: Alert, Oriented HEENT: Pupils Equal, Pupils Reactive, EOMI, Mucous Membr. Moist/[place] Neck: Supple Lungs: Clear to Auscultation, Normal Respiratory Effort Cardiovascular: Regular Rate, Regular Rhythm GI/Abdominal Exam: Normal Bowel Sounds, Soft, Non-Tender, No Organomegaly, No Distention, No Abnormal Bruit, No Mass, Pelvis Stable Back Exam: Normal Inspection, Full Range of Motion Extremities: Normal Inspection, Normal Range of Motion, Non-Tender, No Pedal Edema, Normal Capillary Refill Skin: Warm, Dry, Intact Neurological: No New Focal Deficit Psy/Mental Status: Alert, Normal Affect, Normal Mood Sepsis Event Note - Evaluation Sepsis Screening Result: No Definite Risk - Focused Exam Vital Signs: Vital Signs Pulse BP 02/03/20 09:04 122/85 02/03/20 09:03 71 122/85 - Problem List Review Problem List Initiated/Reviewed/Updated: Yes - My Orders Last 24 Hours: My Active Orders 02/03/20 08:21 OCCULT BLOOD SCREEN [OP] Routine 02/03/20 09:00 Ascorbic Acid [Vitamin C] 500 mg PO DAILY Potassium Chloride [Klor-Con 10] 40 meq PO BEDTIME 02/03/20 21:00 atorvaSTATin [Lipitor] 20 mg PO BEDTIME - Plan Plan:: Patient is an 84 year old mom transferred to the swing bed status post surgery for right hip fracture. #. Status post surgery for right hip fracture Continue PT/OT Pain well controlled #. Acute kidney injury Serum creatinine has been elevated up to 1.4 Creatinine trended down to baseline #. Urinary tract infection Urine culture grew Klebsiella pneumonia Continue and complete ceftriaxone #. Acute blood loss anemia Hemoglobin 7.2 today, appears not to be responding to ferrous sulfate. Patient reports history of GI bleed due to ulcers. Obtain stool for occult blood Transfused with 1 unit of packed red blood cells Add vitamin C daily #. History of diastolic congestive heart failure Not decompensated at this point #. Atrial fibrillation On chronic anticoagulation and also on antiarrhythmic agent #. Hypertension Blood pressure is within acceptable limits
[2020-02-03] MEDS: cefTRIAXone 1 GM in Sodium Chloride 0.9% 50 ML IV SCH (18:54)
[2020-02-03] MEDS: Melatonin 3 MG Tab PO PRN (20:32)
[2020-02-03] MEDS: atorvaSTATin 20 MG Tab PO SCH (20:32)
[2020-02-04] MEDS: FLUoxetine 10 MG Cap PO SCH (09:17)
[2020-02-04] MEDS: Acetaminophen 500 MG Tab PO SCH ×2 (09:17→21:08)
[2020-02-04] MEDS: Cholecalciferol (Vitamin D3) 25 MCG Tab PO SCH (09:17)
[2020-02-04] MEDS: Rivaroxaban 10 MG Tab PO SCH (09:18)
[2020-02-04] MEDS: Ascorbic Acid 500 MG Tab PO SCH (09:18)
[2020-02-04] MEDS: Bumetanide 1 MG Tab PO SCH ×2 (09:18→14:29)
[2020-02-04] MEDS: Potassium Chloride 10 MEQ Tab.ER PO SCH ×2 (09:18→21:08)
[2020-02-04] MEDS: Ferrous Sulfate 325 MG Tab PO SCH (09:18)
[2020-02-04] MEDS: Cyanocobalamin (Vitamin B12) 1,000 MCG Tab PO SCH (09:18)
[2020-02-04] MEDS: Metoprolol Succinate 50 MG Tab.ER PO SCH (09:19)
[2020-02-04] MEDS: Lisinopril 20 MG Tab PO SCH (09:19)
[2020-02-04] MEDS: Aspirin 81 MG Tab.EC PO SCH (09:20)
[2020-02-04] MEDS: FLECAINIDE ACETATE 100 MG PO SCH ×2 (09:23→17:38)
[2020-02-04] MEDS: Nicotine 7 MG/24 Hr Patch TOP SCH (09:26)
[2020-02-04 10:09] LABS: ANION GAP 13.1 mEq/L (7-13)
[2020-02-04] MEDS: cefTRIAXone 1 GM in Sodium Chloride 0.9% 50 ML IV SCH (14:30)
[2020-02-04] MEDS: Melatonin 3 MG Tab PO PRN (21:08)
[2020-02-04] MEDS: atorvaSTATin 20 MG Tab PO SCH (21:08)
[2020-02-05] MEDS: Cyanocobalamin (Vitamin B12) 1,000 MCG Tab PO SCH (08:51)
[2020-02-05] MEDS: FLUoxetine 10 MG Cap PO SCH (08:51)
[2020-02-05] MEDS: Acetaminophen 500 MG Tab PO SCH ×2 (08:51→20:28)
[2020-02-05] MEDS: Aspirin 81 MG Tab.EC PO SCH (08:51)
[2020-02-05] MEDS: Metoprolol Succinate 50 MG Tab.ER PO SCH (08:51)
[2020-02-05] MEDS: Ascorbic Acid 500 MG Tab PO SCH (08:51)
[2020-02-05] MEDS: Bumetanide 1 MG Tab PO SCH ×3 (08:51→17:02)
[2020-02-05] MEDS: Ferrous Sulfate 325 MG Tab PO SCH (08:51)
[2020-02-05] MEDS: Rivaroxaban 10 MG Tab PO SCH (08:51)
[2020-02-05] MEDS: Lisinopril 20 MG Tab PO SCH (08:51)
[2020-02-05] MEDS: Potassium Chloride 10 MEQ Tab.ER PO SCH (08:51)
[2020-02-05] MEDS: Nicotine 7 MG/24 Hr Patch TOP SCH (08:52)
[2020-02-05] MEDS: Cholecalciferol (Vitamin D3) 25 MCG Tab PO SCH (08:52)
[2020-02-05] MEDS: FLECAINIDE ACETATE 100 MG PO SCH ×2 (08:54→17:02)
[2020-02-05] MEDS: atorvaSTATin 20 MG Tab PO SCH (20:28)
[2020-02-05] MEDS: Melatonin 3 MG Tab PO PRN (20:29)
[2020-02-06] MEDS: Cholecalciferol (Vitamin D3) 25 MCG Tab PO SCH (08:39)
[2020-02-06] MEDS: Rivaroxaban 10 MG Tab PO SCH (08:39)
[2020-02-06] MEDS: Aspirin 81 MG Tab.EC PO SCH (08:39)
[2020-02-06] MEDS: Lisinopril 20 MG Tab PO SCH (08:39)
[2020-02-06] MEDS: Cyanocobalamin (Vitamin B12) 1,000 MCG Tab PO SCH (08:39)
[2020-02-06] MEDS: Nicotine 7 MG/24 Hr Patch TOP SCH (08:40)
[2020-02-06] MEDS: Metoprolol Succinate 50 MG Tab.ER PO SCH (08:40)
[2020-02-06] MEDS: FLUoxetine 10 MG Cap PO SCH (08:40)
[2020-02-06] MEDS: Bumetanide 1 MG Tab PO SCH (08:40)
[2020-02-06] MEDS: Acetaminophen 500 MG Tab PO SCH (08:40)
[2020-02-06] MEDS: Ferrous Sulfate 325 MG Tab PO SCH (08:40)
[2020-02-06] MEDS: Potassium Chloride 10 MEQ Tab.ER PO SCH (08:40)
[2020-02-06] MEDS: FLECAINIDE ACETATE 100 MG PO SCH (08:40)
[2020-02-06] MEDS: Ascorbic Acid 500 MG Tab PO SCH (08:40)
[2020-02-06 08:41] VITALS: BP 136/67; PULSE 74
--- NOTE | 2020-02-06 10:16 | PCM.DCSUM1 ---
Discharge Summary - Hospital Course Free Text/Narrative:: The patient is an 84-year-old man with medical history of hypertension, atrial fibrillation, dyslipidemia. The patient fell and sustained a right hip fracture. He underwent surgery. Patient has been getting physical therapy. Transferred to [facility] for continuation of physical and occupational therapy at a swing bed. Patient did well with physical therapy and Occupational Therapy with improvement of overall strengthening. He was discharged home in stable condition. He will follow-up with PCP and orthopedic surgery. Diagnosis: Stroke: No - Discharge Data Discharge Date: 02/06/20 Discharge Disposition: Home, W Home Health Agency 06 Condition: Good - Referral to Home Health Date of Face to Face Encounter: 02/06/20 Reason for Homebound Status: Right hip fracture with taxing effort to leave home due to weakness Primary Care Physician: Xuan Gonzalez PA-C Skilled Need: assisted for: Medication, teaching, regimen. Physical therapy for: Home exercise program. Home health aide for personal care and bathing. 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 - Patient Summary/Data Consults: Consultations 01/20/20 16:01 OT Evaluation and Treatment [CONS] Routine PT Evaluation and Treatment [CONS] Routine - Patient Instructions Diet: Heart Healthy Diet Fluid Restriction: 1000 mL Activity: As Tolerated Showering/Bathing: September Shower Notify Provider of: Fever, Increased Pain, Swelling and Redness, Nausea and/or Vomiting - Discharge Plan *PRESCRIPTION DRUG MONITORING PROGRAM REVIEWED*: Not Applicable *COPY OF PRESCRIPTION DRUG MONITORING REPORT IN PATIENT KIMBERLEY: Not Applicable Home Medications: Home Meds FLUoxetine HCl [Fluoxetine HCl] 40 mg PO DAILY 09/20/13 [History] Flecainide Acetate 50 mg PO BIDMEALS 05/10/16 [History] Metoprolol Succinate 50 mg PO DAILY 05/10/16 [History] Rivaroxaban [Xarelto] 20 mg PO DAILY 05/10/16 [History] Aspirin [Halfprin] 81 mg PO DAILY 10/03/18 [History] Lisinopril 20 mg PO DAILY 10/03/18 [History] atorvaSTATin [Lipitor] 20 mg PO BEDTIME #30 tablet 10/08/18 [Rx] Cyanocobalamin (Vitamin B-12) [B-12] 1,000 mcg PO DAILY 04/29/19 [History] Acetaminophen [Acetaminophen Extra Strength] 1,000 mg PO Q8HR 01/20/20 [History] Albuterol [Proventil Neb Soln] 1 vial INH QID PRN 01/20/20 [History] Bumetanide [Bumex] 2 mg PO BID 01/20/20 [History] Cholecalciferol (Vitamin D3) [Vitamin D3] 5,000 unit PO DAILY 01/20/20 [History] Ferrous Sulfate 325 mg PO DAILY 01/20/20 [History] Magnesium Oxide 250 mg PO DAILY 01/20/20 [History] Nicotine [Nicotine Patch] 7 mg TOP DAILY 01/20/20 [History] Potassium Chloride 10 meq PO ASDIRECTED 01/20/20 [History] Remove Patch 1 patch TOP DAILY 01/20/20 [History] Sennosides/Docusate Sodium [Senna-S] 2 tab PO BID PRN 01/20/20 [History] oxyCODONE 10 mg PO Q4HR PRN 01/20/20 [History] traMADol [Ultram] 1 tab PO Q6HR PRN 01/20/20 [History] Oxygen Therapy Mode: Room Air Patient Handouts: Fall Prevention in the Home, Adult, [id number], Understanding Your Risk for Falls Referrals: Xuan Gonzalez PA-C [Primary Care Provider] - - Discharge Summary/Plan Comment DC Time >30 min.: Yes - Patient Data Vitals - Most Recent: Last Vital Signs Temp 98.2 F 02/06/20 08:00 Pulse 74 02/06/20 08:40 Resp 20 02/06/20 08:00 BP 136/67 02/06/20 08:40 Pulse Ox 96 02/06/20 08:00 Weight - Most Recent: 191 lb 3.2 oz I&O - Last 24 hours: Intake & Output 02/05/20 02/06/20 02/06/20 22:59 06:59 14:59 Intake Total 300 Output Total 500 Balance -200 Med Orders - Current: Current Medications Acetaminophen (Tylenol Extra Strength) 1,000 mg PO BID [facility] Last Admin: 02/06/20 08:40 Dose: 1,000 mg Documented by: Albuterol (Proventil Neb Soln) 2.5 mg INH QID PRN PRN Reason: Shortness of Breath Ascorbic Acid (Vitamin C) 500 mg PO DAILY [facility] Last Admin: 02/06/20 08:40 Dose: 500 mg Documented by: Aspirin (Halfprin) 81 mg PO DAILY [facility] Last Admin: 02/06/20 08:39 Dose: 81 mg Documented by: Atorvastatin Calcium (Lipitor) 20 mg PO BEDTIME [facility] Last Admin: 02/05/20 20:28 Dose: 20 mg Documented by: Bumetanide (Bumex) 2 mg PO BIDDIURETIC [facility] Last Admin: 02/06/20 08:40 Dose: 2 mg Documented by: Cholecalciferol (Vitamin D3) 125 mcg PO DAILY [facility] Last Admin: 02/06/20 08:39 Dose: 125 mcg Documented by: Cyanocobalamin (Vitamin B12) 1,000 mcg PO DAILY [facility] Last Admin: 02/06/20 08:39 Dose: 1,000 mcg Documented by: Ferrous Sulfate (Ferrous Sulfate) 325 mg PO DAILY [facility] Last Admin: 02/06/20 08:40 Dose: 325 mg Documented by: Fluoxetine HCl (Prozac) 40 mg PO DAILY [facility] Last Admin: 02/06/20 08:40 Dose: 40 mg Documented by: Influenza Virus Vaccine (Pharmacy To Dose - Influenza Vaccine) 1 each IM ONETIME ONE Stop: 02/06/20 09:56 Lisinopril (Prinivil) 20 mg PO DAILY [facility] Last Admin: 02/06/20 08:39 Dose: 20 mg Documented by: Magnesium Oxide (Magnesium Oxide) 250 mg PO DAILY [facility] Last Admin: 02/06/20 08:40 Dose: 250 mg Documented by: Melatonin (Melatonin) 6 mg PO BEDTIME PRN PRN Reason: Sleep Last Admin: 02/05/20 20:29 Dose: 6 mg Documented by: Metoprolol Succinate (Toprol Xl) 50 mg PO DAILY [facility] Last Admin: 02/06/20 08:40 Dose: 50 mg Documented by: Nicotine (Habitrol) 7 mg TOP DAILY [facility] Last Admin: 02/06/20 08:40 Dose: 7 mg Documented by: Flecainide Acetate (100mg Pt Own Med) 0 mg PO BIDMEALS [facility] Last Admin: 02/06/20 08:40 Dose: 50 mg Documented by: Potassium Chloride (Klor-Con 10) 10 meq PO DAILY [facility] Last Admin: 02/06/20 08:40 Dose: 10 meq Documented by: Rivaroxaban (Xarelto) 20 mg PO DAILY [facility] Last Admin: 02/06/20 08:39 Dose: 20 mg Documented by: Senna/Docusate Sodium (Senna Plus) 2 tab PO BID PRN PRN Reason: Constipation Last Admin: 01/27/20 08:09 Dose: 2 tab Documented by: Tramadol HCl (Ultram) 50 mg PO Q6HR PRN PRN Reason: Pain Last Admin: 02/02/20 20:01 Dose: 50 mg Documented by: Discontinued Medications Acetaminophen (Tylenol) 650 mg PO Q4H PRN PRN Reason: Pain (Mild 1-3)/fever Acetaminophen (Tylenol Extra Strength) 1,000 mg PO Q8HR [facility] Acetaminophen (Tylenol) 650 mg PO Q8H PRN PRN Reason: Pain (Mild 1-3)/fever Docusate Sodium (Colace) 100 mg PO BID PRN PRN Reason: Constipation Heparin Sodium (Porcine) (Heparin Sodium) 5,000 units SUBCUT Q12HR [facility] Ceftriaxone Sodium 1 gm/ (Sodium Chloride) 50 mls @ 100 mls/hr IV Q24H [facility] Stop: 02/04/20 23:59 Last Infusion: 02/04/20 17:17 Dose: Infused Documented by: Ceftriaxone Sodium 1 gm/ (Sodium Chloride) 50 mls @ as directed IV .STK-MED ONE Stop: 01/31/20 15:31 Influenza Virus Vaccine (Fluad Quad Syringe) 60 mcg IM .ONCE ONE Stop: 01/20/20 15:16 Last Admin: 01/20/20 16:16 Dose: 60 mcg Documented by: Potassium Chloride (Klor-Con 10) 40 meq PO BEDTIME [facility] Stop: 02/04/20 23:59 Last Admin: 02/04/20 21:08 Dose: 40 meq Documented by: Potassium Chloride (Klor-Con 10) 10 meq PO ASDIRECTED [facility] Sodium Chloride (Saline Flush) 10 ml FLUSH ASDIRECTED PRN PRN Reason: Keep Vein Open Last Admin: 02/02/20 13:51 Dose: 10 ml Documented by:
== END 2020-02-06 13:41 | disposition home health service (06) | DRG 560 ==
LOC: DL.MS 13:59
PROVIDERS: ADMIT Hospitalist; ATTEND Student in an Organized Health Care Education/Training Program
DX: S72.001D Fracture of unspecified part of neck of right femur, subsequent encounter for closed fracture with routine healing (principal); N17.9 Acute kidney failure, unspecified; I50.32 Chronic diastolic (congestive) heart failure; N39.0 Urinary tract infection, site not specified; D62 Acute posthemorrhagic anemia; I48.91 Unspecified atrial fibrillation; E78.5 Hyperlipidemia, unspecified; E78.00 Pure hypercholesterolemia, unspecified; I11.0 Hypertensive heart disease with heart failure; I50.9 Heart failure, unspecified; G51.0 Bell's palsy; F17.200 Nicotine dependence, unspecified, uncomplicated; E87.6 Hypokalemia; B96.1 Klebsiella pneumoniae [K. pneumoniae] as the cause of diseases classified elsewhere; Z86.73 Personal history of transient ischemic attack (TIA), and cerebral infarction without residual deficits; Z95.0 Presence of cardiac pacemaker; Z79.82 Long term (current) use of aspirin; Z79.899 Other long term (current) drug therapy; Z98.49 Cataract extraction status, unspecified eye; Z90.49 Acquired absence of other specified parts of digestive tract; Z79.01 Long term (current) use of anticoagulants; Z23 Encounter for immunization
CPT/HCPCS: 36415; 36430; 80048; 81001; 82272; 83735; 85025; 85027; 86850; 86900; 86901; 86920; 86922; 87086; 87088; 87186; 90653; 97110-GP; 97116-GP; 97162-GP; 97166-GO; 97530-GO; 97535-GO; A9270-GY; G0008; J0696; J7050; P9016

== ENCOUNTER 2020-06-08 21:27 | Observation (INO) | payer MEDICARE, OTHER ==
[2020-06-08] MEDS ORDERED: Bumetanide 1 MG/4 ML MDV IVPUSH ONE (21:39)
[2020-06-08] MEDS ORDERED: methylPREDNISolone Sodium Succinate 125 MG/2 ML SDV IVPUSH ONE (21:40)
--- NOTE | 2020-06-08 21:43 | CR ---
PROCEDURE INFORMATION: Exam: XR Chest, 1 View Exam date and time: 06/08/2020 9:31 PM Age: 84 years old Clinical indication: Shortness of breath; Additional info: SOB TECHNIQUE: Imaging protocol: XR of the chest Views: 1 view. COMPARISON: CR Chest 2V 06/20/2019 1:24 PM FINDINGS: Tubes, catheters and devices: A pacemaker device is present, and its leads are in appropriate position. Lungs: Atelectatic changes noted within the lung bases without focal pneumonia. Pleural spaces: Unremarkable. No pleural effusion. No pneumothorax. Heart/Mediastinum: The heart demonstrates mild diffuse enlargement. Bones/joints: Unremarkable. IMPRESSION: Atelectatic changes noted within the lung bases without focal pneumonia.
[2020-06-08 22:01] LABS: ANION GAP 12.1 mEq/L (7-13)
--- NOTE | 2020-06-08 22:59 | EDM.PDOC ---
ED HPI GENERAL MEDICAL PROBLEM - General Chief Complaint: Respiratory Problem Stated Complaint: AMUBULANCE Time Seen by Provider: 06/08/20 21:30 Source of Information: Reports: Patient History Limitations: Reports: No Limitations - History of Present Illness INITIAL COMMENTS - FREE TEXT/NARRATIVE: ED with c/o acute onset SOB worse when sitting or lying. Denied chest pain. No recent fever or cough. HX CHF, COPD. - Related Data Allergies Allergy/AdvReac Type Severity Reaction Status Date / Time No Known Allergies Allergy Verified 06/08/20 21:39 Home Meds: Home Meds FLUoxetine HCl [Fluoxetine HCl] 40 mg PO DAILY 09/20/13 [History] Flecainide Acetate 50 mg PO BIDMEALS 05/10/16 [History] Metoprolol Succinate 50 mg PO DAILY 05/10/16 [History] Rivaroxaban [Xarelto] 20 mg PO DAILY 05/10/16 [History] Aspirin [Halfprin] 81 mg PO DAILY 10/03/18 [History] Lisinopril 20 mg PO DAILY 10/03/18 [History] atorvaSTATin [Lipitor] 20 mg PO BEDTIME #30 tablet 10/08/18 [Rx] Acetaminophen [Acetaminophen Extra Strength] 1,000 mg PO Q8HR 01/20/20 [History] Albuterol [Proventil Neb Soln] 1 vial INH QID PRN 01/20/20 [History] Bumetanide [Bumex] 2 mg PO BID 01/20/20 [History] Cholecalciferol (Vitamin D3) [Vitamin D3] 5,000 unit PO DAILY 01/20/20 [History] Ferrous Sulfate 325 mg PO DAILY 01/20/20 [History] Magnesium Oxide 250 mg PO DAILY 01/20/20 [History] Potassium Chloride 10 meq PO ASDIRECTED 01/20/20 [History] Sennosides/Docusate Sodium [Senna-S] 2 tab PO BID PRN 01/20/20 [History] Cyanocobalamin (Vitamin B-12) [Vitamin B-12] 1,000 mcg PO DAILY 06/08/20 [History] Past Medical History HEENT History: Reports: Hard of Hearing, Other (See Below) Other HEENT History: cleft palette, wears glasses Cardiovascular History: Reports: Heart Failure, High Cholesterol, Hypertension, Pacemaker Respiratory History: Reports: Sleep Apnea, SOB Other Respiratory History: uses CPAP at home, narcalepsy Gastrointestinal History: Reports: GI Bleed Genitourinary History: Reports: Urinary Incontinence, Other (See Below) Other Genitourinary History: at times Neurological History: Reports: CVA, Other (See Below) Other Neuro History: Bigler Palsey Psychiatric History: Reports: None Endocrine/Metabolic History: Reports: None Hematologic History: Reports: Blood Transfusion(s) Immunologic History: Reports: None Oncologic (Cancer) History: Reports: None Dermatologic History: Reports: None - Infectious Disease History Infectious Disease History: Reports: Measles - Past Surgical History Head Surgeries/Procedures: Reports: None HEENT Surgical History: Reports: Cataract Surgery, Other (See Below) Other HEENT Surgeries/Procedures: left eyelid surgery Cardiovascular Surgical History: Reports: None Respiratory Surgical History: Reports: None GI Surgical History: Reports: Appendectomy, Colonoscopy, Other (See Below) Neurological Surgical History: Reports: None Musculoskeletal Surgical History: Reports: Other (See Below) Other Musculoskeletal Surgeries/Procedures:: Needs Rt. hip replacement. Oncologic Surgical History: Reports: None Dermatological Surgical History: Reports: Skin Biopsy, Other (See Below) Social & Family History - Family History Family Medical History: No Pertinent Family History - Tobacco Use Tobacco Use Status *Q: Never Tobacco User - Caffeine Use Caffeine Use: Reports: Coffee Caffeine Use Comment: decaff only - Recreational Drug Use Recreational Drug Use: No - Living Situation & Occupation Living situation: Reports: with Spouse ED ROS GENERAL - Review of Systems Review Of Systems: Comprehensive ROS is negative, except as noted in HPI. Constitutional: Denies: Fever, Chills, Fatigue HEENT: Reports: No Symptoms, Glasses Respiratory: Reports: Shortness of Breath, Wheezing. Denies: Cough, Sputum Cardiovascular: Reports: Orthopnea. Denies: Chest Pain, Lightheadedness GI/Abdominal: Reports: No Symptoms ED EXAM, GENERAL - Physical Exam Exam: See Below Exam Limited By: No Limitations General Appearance: Alert, Anxious, Mild Distress Eye Exam: Bilateral Eye: EOMI Ears: Hearing Loss Throat/Mouth: Other (mild speech impediment). No: Normal Voice Head: Atraumatic, Normocephalic Neck: Normal Inspection, Limited Range of Motion Respiratory/Chest: Rales (fine bibasilar), Wheezing (mild expiratory) Cardiovascular: Normal Peripheral Pulses, Other (paced) GI/Abdominal: Normal Bowel Sounds, Soft Back Exam: No: CVA Tenderness (L), CVA Tenderness (R) Extremities: Other (left foot deformity) Neurological: Alert, Oriented Psychiatric: Normal Affect, Anxious Skin Exam: Warm, Dry, Intact, Normal Color Course - Vital Signs Last Recorded V/S: Last Vital Signs Temp 98.8 F 06/08/20 21:27 Pulse 75 06/08/20 21:27 Resp 22 H 06/08/20 21:27 BP 144/94 H 06/08/20 21:27 Pulse Ox 98 06/08/20 21:27 - Orders/Labs/Meds Orders: Active Orders 24 hr Category Date Time Status EKG Documentation Completion [RC] URGENT Care 06/08/20 21:22 Active Labs: Laboratory Tests 06/08/20 06/08/20 06/08/20 Range/Units 21:30 21:30 21:30 WBC 11.3 H (5.0-10.0) 10^3/uL RBC 4.07 L (4.6-6.2) 10^6/uL Hgb 12.8 L D (14.0-18.0) g/dL Hct 38.7 L (40.0-54.0) % MCV 95.1 D (80-100) fL MCH 31.4 (27.0-34.0) pg MCHC 33.1 (33.0-35.0) g/dL Plt Count 229 (150-450) 10^3/uL Neut % (Auto) 68.3 (42.2-75.2) % Lymph % (Auto) 17.2 L (20.5-50.1) % Alger % (Auto) 10.0 H (2-8) % Eos % (Auto) 4.0 H (1.0-3.0) % Baso % (Auto) 0.5 (0.0-1.0) % PT 15.3 H (9.0-12.0) SEC INR 1.6 H (0.9-1.2) Sodium 138 (136-145) mmol/L Potassium 5.1 (3.5-5.1) mmol/L Chloride 100 (98-107) mmol/L Carbon Dioxide 31 (21-32) mmol/L Anion Gap 12.1 (7-13) mEq/L BUN 31 H (7-18) mg/dL Creatinine 1.39 H (0.70-1.30) mg/dL Est Cr Clr Drug Dosing 35.64 mL/min Estimated GFR (MDRD) 49 BUN/Creatinine Ratio 22.3 (No establ ref range) Glucose 121 H (74-99) mg/dL Calcium 8.8 (8.5-10.1) mg/dL Magnesium 2.0 (1.8-2.4) mg/dL Total Bilirubin 0.4 (0.2-1.0) mg/dL AST 22 (15-37) U/L ALT 30 (16-63) U/L Alkaline Phosphatase 96 (46-116) U/L Troponin I 0.057 H* (0.000-0.056) ng/mL B-Natriuretic Peptide 561 H (0-100) pg/ml Total Protein 8.0 (6.4-8.2) g/dL Albumin 3.8 (3.4-5.0) g/dL Globulin 4.2 Albumin/Globulin Ratio 0.9 SARS-CoV-2 RNA ([facility]) (NEGATIVE) 06/08/20 Range/Units 21:35 WBC (5.0-10.0) 10^3/uL RBC (4.6-6.2) 10^6/uL Hgb (14.0-18.0) g/dL Hct (40.0-54.0) % MCV (80-100) fL MCH (27.0-34.0) pg MCHC (33.0-35.0) g/dL Plt Count (150-450) 10^3/uL Neut % (Auto) (42.2-75.2) % Lymph % (Auto) (20.5-50.1) % Alger % (Auto) (2-8) % Eos % (Auto) (1.0-3.0) % Baso % (Auto) (0.0-1.0) % PT (9.0-12.0) SEC INR (0.9-1.2) Sodium (136-145) mmol/L Potassium (3.5-5.1) mmol/L Chloride (98-107) mmol/L Carbon Dioxide (21-32) mmol/L Anion Gap (7-13) mEq/L BUN (7-18) mg/dL Creatinine (0.70-1.30) mg/dL Est Cr Clr Drug Dosing mL/min Estimated GFR (MDRD) BUN/Creatinine Ratio (No establ ref range) Glucose (74-99) mg/dL Calcium (8.5-10.1) mg/dL Magnesium (1.8-2.4) mg/dL Total Bilirubin (0.2-1.0) mg/dL AST (15-37) U/L ALT (16-63) U/L Alkaline Phosphatase (46-116) U/L Troponin I (0.000-0.056) ng/mL B-Natriuretic Peptide (0-100) pg/ml Total Protein (6.4-8.2) g/dL Albumin (3.4-5.0) g/dL Globulin Albumin/Globulin Ratio SARS-CoV-2 RNA ([place]) Negative (NEGATIVE) Meds: Medications Discontinued Medications Generic Name Dose Route Start Last Admin Trade Name Freq PRN Reason Stop Dose Admin Bumetanide 1 mg 06/08/20 21:39 06/08/20 21:58 Bumex IVPUSH 06/08/20 21:40 1 mg ONETIME ONE Administration Methylprednisolone Sodium Succinate 125 mg 06/08/20 21:40 06/08/20 21:58 Solu-Medrol IVPUSH 06/08/20 21:41 125 mg ONETIME ONE Administration Departure - Departure Time of Disposition: 23:01 Disposition: Refer to Observation Condition: Good Clinical Impression: COPD exacerbation, Paced cardiac rhythm CHF (congestive heart failure) Qualifiers: Heart failure type: unspecified Heart failure chronicity: acute on chronic Qualified Code(s): I50.9 - Heart failure, unspecified - Discharge Information *PRESCRIPTION DRUG MONITORING PROGRAM REVIEWED*: No *COPY OF PRESCRIPTION DRUG MONITORING REPORT IN PATIENT KIMBERLEY: No Sepsis Event Note (ED) - Evaluation Sepsis Screening Result: No Definite Risk - Focused Exam Vital Signs: Vital Signs Temp Pulse Resp BP Pulse Ox 06/08/20 21:27 98.8 F 75 22 H 144/94 H 98 - My Orders Last 24 Hours: My Active Orders 06/08/20 21:22 EKG Documentation Completion [RC] URGENT - Assessment/Plan Last 24 Hours: My Active Orders 06/08/20 21:22 EKG Documentation Completion [RC] URGENT
[2020-06-08] MEDS ORDERED: Albuterol 0.083% 2.5 MG/3 ML Neb Soln NEB PRN (23:29)
--- NOTE | 2020-06-08 23:35 | PCM.HP ---
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 Patient reports that he was in his usual state of health until sometime this afternoon when he suddenly developed a dry cough and became short of breath. Shortness of breath was not positional as he was symptomatic when sitting up or lying down. He denies chest pain, fever, palpitations, leg swelling, nausea, vomiting, diarrhea. Patient felt that he could not catch his breath. Uses CPAP at night. He presented to the ER this evening and was found to be tachypneic with respiratory to 22. He required 2 L of oxygen by nasal cannula. Chest x- ray was unremarkable. Labs significant for WBC of 11.3, hemoglobin of 12.8, troponin 0.057, creatinine of 1.39. EKG with AV paced complexes with no acute ST changes. Patient was given 125 mg of Solu-Medrol and duo nebs. - Related Data Allergies/Adverse Reactions: Allergies Allergy/AdvReac Type Severity Reaction Status Date / Time No Known Allergies Allergy Verified 06/08/20 21:39 Home Medications: Home Meds FLUoxetine HCl [Fluoxetine HCl] 40 mg PO DAILY 09/20/13 [History] Flecainide Acetate 50 mg PO BIDMEALS 05/10/16 [History] Metoprolol Succinate 50 mg PO DAILY 05/10/16 [History] Rivaroxaban [Xarelto] 20 mg PO DAILY 05/10/16 [History] Aspirin [Halfprin] 81 mg PO DAILY 10/03/18 [History] Lisinopril 20 mg PO DAILY 10/03/18 [History] atorvaSTATin [Lipitor] 20 mg PO BEDTIME #30 tablet 10/08/18 [Rx] Acetaminophen [Acetaminophen Extra Strength] 1,000 mg PO Q8HR 01/20/20 [History] Albuterol [Proventil Neb Soln] 1 vial INH QID PRN 01/20/20 [History] Bumetanide [Bumex] 2 mg PO BID 01/20/20 [History] Cholecalciferol (Vitamin D3) [Vitamin D3] 5,000 unit PO DAILY 01/20/20 [History] Ferrous Sulfate 325 mg PO DAILY 01/20/20 [History] Magnesium Oxide 250 mg PO DAILY 01/20/20 [History] Potassium Chloride 20 meq PO 5XDAY 01/20/20 [History] Sennosides/Docusate Sodium [Senna-S] 2 tab PO BID PRN 01/20/20 [History] Cyanocobalamin (Vitamin B-12) [Vitamin B-12] 1,000 mcg PO DAILY 06/08/20 [History] Past Medical History HEENT History: Reports: Hard of Hearing, Other (See Below) Other HEENT History: cleft palette, wears glasses Cardiovascular History: Reports: Heart Failure, High Cholesterol, Hypertension, Pacemaker Respiratory History: Reports: Sleep Apnea, SOB Other Respiratory History: uses CPAP at home, narcalepsy Gastrointestinal History: Reports: GI Bleed Genitourinary History: Reports: Urinary Incontinence, Other (See Below) Other Genitourinary History: at times Neurological History: Reports: CVA, Other (See Below) Other Neuro History: Sheridan Palsey Psychiatric History: Reports: None Endocrine/Metabolic History: Reports: None Hematologic History: Reports: Blood Transfusion(s) Immunologic History: Reports: None Oncologic (Cancer) History: Reports: None Dermatologic History: Reports: None - Infectious Disease History Infectious Disease History: Reports: Measles - Past Surgical History Head Surgeries/Procedures: Reports: None HEENT Surgical History: Reports: Cataract Surgery, Other (See Below) Other HEENT Surgeries/Procedures: left eyelid surgery Cardiovascular Surgical History: Reports: None Respiratory Surgical History: Reports: None GI Surgical History: Reports: Appendectomy, Colonoscopy, Other (See Below) Neurological Surgical History: Reports: None Musculoskeletal Surgical History: Reports: Other (See Below) Other Musculoskeletal Surgeries/Procedures:: Needs Rt. hip replacement. Oncologic Surgical History: Reports: None Dermatological Surgical History: Reports: Skin Biopsy, Other (See Below) Social & Family History - Family History Family Medical History: No Pertinent Family History - Tobacco Use Tobacco Use Status *Q: Never Tobacco User - Caffeine Use Caffeine Use: Reports: Coffee Caffeine Use Comment: decaff only - Recreational Drug Use Recreational Drug Use: No - Living Situation & Occupation Living situation: Reports: with Spouse H&P Review of Systems - Review of Systems: Review Of Systems: See Below General: Reports: No Symptoms HEENT: Reports: No Symptoms Pulmonary: Reports: Shortness of Breath, Cough Cardiovascular: Reports: No Symptoms Gastrointestinal: Reports: No Symptoms Genitourinary: Reports: No Symptoms Musculoskeletal: Reports: No Symptoms Skin: Reports: No Symptoms Psychiatric: Reports: No Symptoms Neurological: Reports: No Symptoms Hematologic/Lymphatic: Reports: No Symptoms Immunologic: Reports: No Symptoms Exam - Exam Exam: See Below - Vital Signs Vital Signs: Last Vital Signs Temp 98.8 F 06/08/20 21:27 Pulse 75 06/08/20 21:27 Resp 22 H 06/08/20 21:27 BP 144/94 H 06/08/20 21:27 Pulse Ox 98 06/08/20 21:27 Weight: 190 lb 3.2 oz - Exam Quality Assessment: Supplemental Oxygen General: Alert, Oriented, 4 HEENT: PERRLA, Hearing Intact, Mucosa Moist & [place], Nares Patent, Normal Nasal Septum, Posterior Pharynx Clear, Conjunctiva Clear, EOMI, EACs Clear, TMs Clear Neck: Supple, Trachea Midline, 2 Lungs: Clear to Auscultation, Decreased Breath Sounds Cardiovascular: Regular Rate, Regular Rhythm GI/Abdominal Exam: Normal Bowel Sounds, Soft, Non-Tender, No Organomegaly, No Distention, No Abnormal Bruit, No Mass, Pelvis Stable Back Exam: Normal Inspection, Full Range of Motion, NT Extremities: Normal Inspection, Normal Range of Motion, Non-Tender, No Pedal Edema, Normal Capillary Refill Skin: Warm, Dry, Intact Neurological: Cranial Nerves Intact, Reflexes Equal Bilateral Neuro Extensive - Mental Status: Alert, Oriented x3, Normal Mood/Affect, Normal Cognition Neuro Extensive - Motor, Sensory, Reflexes: CN II-XII Intact, Normal Gait, Normal Reflexes Psychiatric: Alert, Normal Affect, Normal Mood - Patient Data Lab Results Last 24 hrs: Laboratory Results - last 24 hr 06/08/20 06/08/20 06/08/20 Range/Units 21:30 21:30 21:30 WBC 11.3 H (5.0-10.0) 10^3/uL RBC 4.07 L (4.6-6.2) 10^6/uL Hgb 12.8 L D (14.0-18.0) g/dL Hct 38.7 L (40.0-54.0) % MCV 95.1 D (80-100) fL MCH 31.4 (27.0-34.0) pg MCHC 33.1 (33.0-35.0) g/dL Plt Count 229 (150-450) 10^3/uL Neut % (Auto) 68.3 (42.2-75.2) % Lymph % (Auto) 17.2 L (20.5-50.1) % [place] % (Auto) 10.0 H (2-8) % Eos % (Auto) 4.0 H (1.0-3.0) % Baso % (Auto) 0.5 (0.0-1.0) % PT 15.3 H (9.0-12.0) SEC INR 1.6 H (0.9-1.2) Sodium 138 (136-145) mmol/L Potassium 5.1 (3.5-5.1) mmol/L Chloride 100 (98-107) mmol/L Carbon Dioxide 31 (21-32) mmol/L Anion Gap 12.1 (7-13) mEq/L BUN 31 H (7-18) mg/dL Creatinine 1.39 H (0.70-1.30) mg/dL Est Cr Clr Drug Dosing 35.64 mL/min Estimated GFR (MDRD) 49 BUN/Creatinine Ratio 22.3 (No establ ref range) Glucose 121 H (74-99) mg/dL Calcium 8.8 (8.5-10.1) mg/dL Magnesium 2.0 (1.8-2.4) mg/dL Total Bilirubin 0.4 (0.2-1.0) mg/dL AST 22 (15-37) U/L ALT 30 (16-63) U/L Alkaline Phosphatase 96 (46-116) U/L Troponin I 0.057 H* (0.000-0.056) ng/mL B-Natriuretic Peptide 561 H (0-100) pg/ml Total Protein 8.0 (6.4-8.2) g/dL Albumin 3.8 (3.4-5.0) g/dL Globulin 4.2 Albumin/Globulin Ratio 0.9 SARS-CoV-2 RNA ([facility]) (NEGATIVE) 06/08/20 Range/Units 21:35 WBC (5.0-10.0) 10^3/uL RBC (4.6-6.2) 10^6/uL Hgb (14.0-18.0) g/dL Hct (40.0-54.0) % MCV (80-100) fL MCH (27.0-34.0) pg MCHC (33.0-35.0) g/dL Plt Count (150-450) 10^3/uL Neut % (Auto) (42.2-75.2) % Lymph % (Auto) (20.5-50.1) % [place] % (Auto) (2-8) % Eos % (Auto) (1.0-3.0) % Baso % (Auto) (0.0-1.0) % PT (9.0-12.0) SEC INR (0.9-1.2) Sodium (136-145) mmol/L Potassium (3.5-5.1) mmol/L Chloride (98-107) mmol/L Carbon Dioxide (21-32) mmol/L Anion Gap (7-13) mEq/L BUN (7-18) mg/dL Creatinine (0.70-1.30) mg/dL Est Cr Clr Drug Dosing mL/min Estimated GFR (MDRD) BUN/Creatinine Ratio (No establ ref range) Glucose (74-99) mg/dL Calcium (8.5-10.1) mg/dL Magnesium (1.8-2.4) mg/dL Total Bilirubin (0.2-1.0) mg/dL AST (15-37) U/L ALT (16-63) U/L Alkaline Phosphatase (46-116) U/L Troponin I (0.000-0.056) ng/mL B-Natriuretic Peptide (0-100) pg/ml Total Protein (6.4-8.2) g/dL Albumin (3.4-5.0) g/dL Globulin Albumin/Globulin Ratio SARS-CoV-2 RNA ([facility]) Negative (NEGATIVE) Result Diagrams: 06/08/20 21:30 06/08/20 21:30 Problem List Initiated/Reviewed/Updated: Yes Orders Last 24hrs: Active Orders 24 hr Category Date Time Status Admission Diagnosis [ADT] Stat ADT 06/08/20 22:56 Ordered Admission Status [Patient Status] [ADT] Routine ADT 06/08/20 22:56 Active EKG Documentation Completion [RC] URGENT Care 06/08/20 21:22 Active Oxygen Therapy [RC] PRN Care 06/08/20 23:29 Ordered RT Aerosol Therapy [RC] ASDIRECTED Care 06/08/20 23:31 Ordered Up With Assistance [RC] ASDIRECTED Care 06/08/20 23:29 Ordered VTE/DVT Education [RC] PER UNIT ROUTINE Care 06/08/20 23:29 Ordered Vital Signs [RC] Q4H Care 06/08/20 23:29 Ordered 2 Gram Sodium Diet [DIET] Diet 06/08/20 Breakfast Ordered Acetaminophen [Tylenol Extra Strength] Med 06/09/20 06:00 Ordered 1,000 mg PO Q8HR Albuterol [Proventil Neb Soln] Med 06/08/20 23:29 Ordered 2.5 mg NEB Q2H PRN Albuterol/Ipratropium [DuoNeb 3.0-0.5 MG/3 ML] Med 06/09/20 09:00 Ordered 3 ml NEB QID Aspirin [Halfprin] Med 06/09/20 09:00 Ordered 81 mg PO DAILY Bumetanide [Bumex] Med 06/09/20 09:00 Ordered 2 mg PO BID Cholecalciferol (Vitamin D3) Med 06/09/20 09:00 Ordered 5,000 unit PO DAILY Cyanocobalamin (Vitamin B-12) [Vitamin B-12] Med 06/09/20 09:00 Ordered 1,000 mcg PO DAILY Docusate Sodium/Sennosides [Senna Plus] Med 06/08/20 23:31 Ordered 2 tab PO BID PRN FLUoxetine HCl [Fluoxetine HCl] Med 06/09/20 09:00 Ordered 40 mg PO DAILY Ferrous Sulfate Med 06/09/20 09:00 Ordered 325 mg PO DAILY Flecainide Acetate [Flecainide Acetate] Med 06/09/20 08:00 Ordered 50 mg PO BIDMEALS Magnesium Oxide Med 06/09/20 09:00 Ordered 250 mg PO DAILY Metoprolol Succinate [Toprol XL] Med 06/09/20 09:00 Ordered 50 mg PO DAILY Potassium Chloride [Potassium Chloride] Med 06/08/20 23:45 Ordered 10 meq PO ASDIRECTED Rivaroxaban [Xarelto] Med 06/09/20 09:00 Ordered 20 mg PO DAILY atorvaSTATin [Lipitor] Med 06/09/20 21:00 Ordered 20 mg PO BEDTIME methylPREDNISolone Sod Succ [Solu-MEDROL] Med 06/08/20 23:45 Ordered 40 mg IVPUSH Q6H Resuscitation Status Routine Resus Stat 06/08/20 23:29 Ordered Assessment/Plan Comment:: Acute hypoxic failure due to COPD exacerbation Scheduled duo nebs 4 times daily As needed albuterol Solu-Medrol 40 mg IV every 6 hours Elevated troponin Troponin of 0.057, likely demand ischemia. EKG without acute ST changes and patient does not have chest pain. Trend troponin Leukocytosis Likely stress reaction Monitor CKD Creatinine appears to be at baseline. Continue to monitor Chronic atrial fibrillation Chronic anticoagulation Presence of pacemaker Resume beta-aby, flecainide and Xarelto Hypertension Resume hypertensive Chronic systolic and diastolic CHF Resume diuretics, beta-aby Hold lisinopril for now and monitor renal status Hyperlipidemia Resume statin therapy CAD Resume aspirin DVT prophylaxis: On Xarelto CODE STATUS: Full code
[2020-06-09] MEDS: methylPREDNISolone Sodium Succinate 40 MG/1 ML SDV IVPUSH SCH ×3 (00:07→11:53)
[2020-06-09] MEDS: Acetaminophen 500 MG Tab PO SCH ×2 (05:33→14:12)
[2020-06-09 06:37] LABS: ANION GAP 12.5 mEq/L (7-13)
[2020-06-09] MEDS ORDERED: Sodium Chloride 0.9% 1,000 ML IV SCH (07:00)
[2020-06-09] MEDS ORDERED: FLECAINIDE ACETATE 50 MG PO SCH (08:00)
[2020-06-09] MEDS: Potassium Chloride 10 MEQ Tab.ER PO SCH ×3 (08:51→14:11)
[2020-06-09] MEDS ORDERED: Metoprolol Succinate 50 MG Tab.ER PO SCH (09:00)
[2020-06-09] MEDS ORDERED: Bumetanide 1 MG Tab PO SCH (09:00)
[2020-06-09] MEDS ORDERED: Ferrous Sulfate 325 MG Tab PO SCH (09:00)
[2020-06-09] MEDS ORDERED: Rivaroxaban 10 MG Tab PO SCH (09:00)
[2020-06-09] MEDS ORDERED: Cyanocobalamin (Vitamin B12) 1,000 MCG Tab PO SCH (09:00)
[2020-06-09] MEDS ORDERED: Aspirin 81 MG Tab.EC PO SCH (09:00)
[2020-06-09] MEDS ORDERED: Cholecalciferol (Vitamin D3) 25 MCG Tab PO SCH (09:00)
[2020-06-09] MEDS ORDERED: FLUoxetine 10 MG Cap PO SCH (09:00)
[2020-06-09] MEDS: Albuterol/Ipratropium 3.0-0.5 MG/3 ML Neb Soln NEB SCH ×2 (09:10→13:59)
[2020-06-09 11:51] VITALS: BP 112/56
[2020-06-09 14:02] VITALS: PULSE 93
--- NOTE | 2020-06-09 15:36 | PCM.DCSUM1 ---
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 He was found to be tachypneic with respiratory to 22. He required 2 L of oxygen by nasal cannula. Chest x-ray was unremarkable. Labs significant for WBC of 11.3, hemoglobin of 12.8, troponin 0.060, creatinine of 1.39. EKG with AV paced complexes with no acute ST changes. Patient was given 125 mg of Solu-Medrol and duo nebs for acute exacerbation of COPD. Leukocytosis resolved, and troponin remained stable. Troponin has been chronically elevated. He had no cardiac symptoms. His respiratory status improved and he was discharged. Diagnosis: Stroke: No - Discharge Data Discharge Date: 06/09/20 Discharge Disposition: Home, Self-Care 01 Condition: Good - Referral to Home Health Primary Care Physician: PCP None - Discharge Plan *PRESCRIPTION DRUG MONITORING PROGRAM REVIEWED*: Not Applicable *COPY OF PRESCRIPTION DRUG MONITORING REPORT IN PATIENT KIMBERLEY: Not Applicable Prescriptions/Med Rec: predniSONE [Prednisone] 20 mg PO DAILY 4 Days #4 tablet Home Medications: Home Meds FLUoxetine HCl [Fluoxetine HCl] 40 mg PO DAILY 09/20/13 [History] Flecainide Acetate 50 mg PO BIDMEALS 05/10/16 [History] Metoprolol Succinate 50 mg PO DAILY 05/10/16 [History] Rivaroxaban [Xarelto] 20 mg PO DAILY 05/10/16 [History] Aspirin [Halfprin] 81 mg PO DAILY 10/03/18 [History] Lisinopril 20 mg PO DAILY 10/03/18 [History] atorvaSTATin [Lipitor] 20 mg PO BEDTIME #30 tablet 10/08/18 [Rx] Acetaminophen [Acetaminophen Extra Strength] 1,000 mg PO Q8HR 01/20/20 [History] Albuterol [Proventil Neb Soln] 1 vial INH QID PRN 01/20/20 [History] Bumetanide [Bumex] 2 mg PO BID 01/20/20 [History] Cholecalciferol (Vitamin D3) [Vitamin D3] 5,000 unit PO DAILY 01/20/20 [History] Ferrous Sulfate 325 mg PO DAILY 01/20/20 [History] Magnesium Oxide 250 mg PO DAILY 01/20/20 [History] Potassium Chloride 20 meq PO 5XDAY 01/20/20 [History] Sennosides/Docusate Sodium [Senna-S] 2 tab PO BID PRN 01/20/20 [History] Cyanocobalamin (Vitamin B-12) [Vitamin B-12] 1,000 mcg PO DAILY 06/08/20 [History] predniSONE [Prednisone] 20 mg PO DAILY 4 Days #4 tablet 06/09/20 [Rx] Referrals: PCP,None [Primary Care Provider] - - Discharge Summary/Plan Comment DC Time >30 min.: Yes - General Info Date of Service: 06/09/20 Admission Dx/Problem (Free Text: Admission Diagnosis/Problem Admission Diagnosis/Problem COPD, Moderate chronic obstructive pulmonary disease Functional Status: Reports: Pain Controlled - Review of Systems General: Reports: No Symptoms HEENT: Reports: No Symptoms Pulmonary: Reports: No Symptoms Cardiovascular: Reports: No Symptoms Gastrointestinal: Reports: No Symptoms Genitourinary: Reports: No Symptoms Musculoskeletal: Reports: No Symptoms Skin: Reports: No Symptoms Neurological: Reports: No Symptoms Psychiatric: Reports: No Symptoms - Patient Data Vitals - Most Recent: Last Vital Signs Temp 99 F 06/09/20 11:50 Pulse 93 06/09/20 14:00 Resp 20 06/09/20 11:50 BP 112/56 L 06/09/20 11:50 Pulse Ox 94 L 06/09/20 11:50 Weight - Most Recent: 188 lb 9.6 oz I&O - Last 24 hours: Intake & Output 06/09/20 06/09/20 06/09/20 06:59 14:59 22:59 Intake Total 600 Balance 600 Lab Results - Last 24 hrs: Laboratory Results - last 24 hr 06/08/20 06/08/20 06/08/20 Range/Units 21:30 21:30 21:30 WBC 11.3 H (5.0-10.0) 10^3/uL RBC 4.07 L (4.6-6.2) 10^6/uL Hgb 12.8 L D (14.0-18.0) g/dL Hct 38.7 L (40.0-54.0) % MCV 95.1 D (80-100) fL MCH 31.4 (27.0-34.0) pg MCHC 33.1 (33.0-35.0) g/dL Plt Count 229 (150-450) 10^3/uL Neut % (Auto) 68.3 (42.2-75.2) % Lymph % (Auto) 17.2 L (20.5-50.1) % [place] % (Auto) 10.0 H (2-8) % Eos % (Auto) 4.0 H (1.0-3.0) % Baso % (Auto) 0.5 (0.0-1.0) % PT 15.3 H (9.0-12.0) SEC INR 1.6 H (0.9-1.2) Sodium 138 (136-145) mmol/L Potassium 5.1 (3.5-5.1) mmol/L Chloride 100 (98-107) mmol/L Carbon Dioxide 31 (21-32) mmol/L Anion Gap 12.1 (7-13) mEq/L BUN 31 H (7-18) mg/dL Creatinine 1.39 H (0.70-1.30) mg/dL Est Cr Clr Drug Dosing 35.64 mL/min Estimated GFR (MDRD) 49 BUN/Creatinine Ratio 22.3 (No establ ref range) Glucose 121 H (74-99) mg/dL Calcium 8.8 (8.5-10.1) mg/dL Magnesium 2.0 (1.8-2.4) mg/dL Total Bilirubin 0.4 (0.2-1.0) mg/dL AST 22 (15-37) U/L ALT 30 (16-63) U/L Alkaline Phosphatase 96 (46-116) U/L Troponin I 0.057 H* (0.000-0.056) ng/mL B-Natriuretic Peptide 561 H (0-100) pg/ml Total Protein 8.0 (6.4-8.2) g/dL Albumin 3.8 (3.4-5.0) g/dL Globulin 4.2 Albumin/Globulin Ratio 0.9 SARS-CoV-2 RNA ([place]) (NEGATIVE) 06/08/20 06/09/20 06/09/20 Range/Units 21:35 06:04 06:04 WBC 6.0 (5.0-10.0) 10^3/uL RBC 3.84 L (4.6-6.2) 10^6/uL Hgb 12.1 L (14.0-18.0) g/dL Hct 36.3 L (40.0-54.0) % MCV 94.5 (80-100) fL MCH 31.5 (27.0-34.0) pg MCHC 33.3 (33.0-35.0) g/dL Plt Count 204 (150-450) 10^3/uL Neut % (Auto) (42.2-75.2) % Lymph % (Auto) (20.5-50.1) % [place] % (Auto) (2-8) % Eos % (Auto) (1.0-3.0) % Baso % (Auto) (0.0-1.0) % PT (9.0-12.0) SEC INR (0.9-1.2) Sodium 139 (136-145) mmol/L Potassium 4.5 (3.5-5.1) mmol/L Chloride 101 (98-107) mmol/L Carbon Dioxide 30 (21-32) mmol/L Anion Gap 12.5 (7-13) mEq/L BUN 32 H (7-18) mg/dL Creatinine 1.47 H (0.70-1.30) mg/dL Est Cr Clr Drug Dosing 33.70 mL/min Estimated GFR (MDRD) 46 BUN/Creatinine Ratio (No establ ref range) Glucose 174 H (74-99) mg/dL Calcium 9.1 (8.5-10.1) mg/dL Magnesium (1.8-2.4) mg/dL Total Bilirubin (0.2-1.0) mg/dL AST (15-37) U/L ALT (16-63) U/L Alkaline Phosphatase (46-116) U/L Troponin I 0.060 H* (0.000-0.056) ng/mL B-Natriuretic Peptide (0-100) pg/ml Total Protein (6.4-8.2) g/dL Albumin (3.4-5.0) g/dL Globulin Albumin/Globulin Ratio SARS-CoV-2 RNA ([place]) Negative (NEGATIVE) 06/09/20 Range/Units 11:59 WBC (5.0-10.0) 10^3/uL RBC (4.6-6.2) 10^6/uL Hgb (14.0-18.0) g/dL Hct (40.0-54.0) % MCV (80-100) fL MCH (27.0-34.0) pg MCHC (33.0-35.0) g/dL Plt Count (150-450) 10^3/uL Neut % (Auto) (42.2-75.2) % Lymph % (Auto) (20.5-50.1) % [place] % (Auto) (2-8) % Eos % (Auto) (1.0-3.0) % Baso % (Auto) (0.0-1.0) % PT (9.0-12.0) SEC INR (0.9-1.2) Sodium (136-145) mmol/L Potassium (3.5-5.1) mmol/L Chloride (98-107) mmol/L Carbon Dioxide (21-32) mmol/L Anion Gap (7-13) mEq/L BUN (7-18) mg/dL Creatinine (0.70-1.30) mg/dL Est Cr Clr Drug Dosing mL/min Estimated GFR (MDRD) BUN/Creatinine Ratio (No establ ref range) Glucose (74-99) mg/dL Calcium (8.5-10.1) mg/dL Magnesium (1.8-2.4) mg/dL Total Bilirubin (0.2-1.0) mg/dL AST (15-37) U/L ALT (16-63) U/L Alkaline Phosphatase (46-116) U/L Troponin I 0.060 H* (0.000-0.056) ng/mL B-Natriuretic Peptide (0-100) pg/ml Total Protein (6.4-8.2) g/dL Albumin (3.4-5.0) g/dL Globulin Albumin/Globulin Ratio SARS-CoV-2 RNA ([place]) (NEGATIVE) Med Orders - Current: Current Medications Acetaminophen (Tylenol Extra Strength) 1,000 mg PO Q8HR [facility] Last Admin: 06/09/20 14:12 Dose: 1,000 mg Documented by: Albuterol (Proventil Neb Soln) 2.5 mg NEB Q2H PRN PRN Reason: shortness of breath/wheezing Albuterol/Ipratropium (Duoneb 3.0-0.5 Mg/3 Ml) 3 ml NEB QID [facility] Last Admin: 06/09/20 13:59 Dose: 3 ml Documented by: Aspirin (Halfprin) 81 mg PO DAILY [facility] Last Admin: 06/09/20 08:52 Dose: 81 mg Documented by: Atorvastatin Calcium (Lipitor) 20 mg PO BEDTIME [facility] Cholecalciferol (Vitamin D3) 125 mcg PO DAILY [facility] Last Admin: 06/09/20 08:51 Dose: 125 mcg Documented by: Cyanocobalamin (Vitamin B12) 1,000 mcg PO DAILY [facility] Last Admin: 06/09/20 08:51 Dose: 1,000 mcg Documented by: Ferrous Sulfate (Ferrous Sulfate) 325 mg PO DAILY [facility] Last Admin: 06/09/20 08:51 Dose: 325 mg Documented by: Fluoxetine HCl (Prozac) 40 mg PO DAILY [facility] Last Admin: 06/09/20 08:50 Dose: 40 mg Documented by: Sodium Chloride (Normal Saline) 1,000 mls @ 100 mls/hr IV ASDIRECTED [facility] Last Admin: 06/09/20 09:10 Dose: 100 mls/hr Documented by: Magnesium Oxide (Magnesium Oxide) 250 mg PO DAILY [facility] Last Admin: 06/09/20 08:51 Dose: 250 mg Documented by: Methylprednisolone Sodium Succinate (Solu-Medrol) 40 mg IVPUSH Q6H [facility] Last Admin: 06/09/20 11:53 Dose: 40 mg Documented by: Metoprolol Succinate (Toprol Xl) 50 mg PO DAILY [facility] Last Admin: 06/09/20 08:51 Dose: 50 mg Documented by: Non-Formulary Medication (Flecainide Acetate [Flecainide Acetate]) 50 mg PO BIDMEALS [facility] Potassium Chloride (Klor-Con 10) 20 meq PO 5XDAY [facility] Last Admin: 06/09/20 14:11 Dose: 20 meq Documented by: Rivaroxaban (Xarelto) 20 mg PO DAILY [facility] Last Admin: 06/09/20 08:51 Dose: 20 mg Documented by: Senna/Docusate Sodium (Senna Plus) 2 tab PO BID PRN PRN Reason: Constipation Discontinued Medications Bumetanide (Bumex) 1 mg IVPUSH ONETIME ONE Stop: 06/08/20 21:40 Last Admin: 06/08/20 21:58 Dose: 1 mg Documented by: Bumetanide (Bumex) 2 mg PO BID [facility] Methylprednisolone Sodium Succinate (Solu-Medrol) 125 mg IVPUSH ONETIME ONE Stop: 06/08/20 21:41 Last Admin: 06/08/20 21:58 Dose: 125 mg Documented by: - Exam General: Reports: Alert, Oriented HEENT: Reports: Pupils Equal, Pupils Reactive, EOMI, Mucous Membr. Moist/Flushing Neck: Reports: Supple Lungs: Reports: Clear to Auscultation, Normal Respiratory Effort Cardiovascular: Reports: Regular Rate, Regular Rhythm GI/Abdominal Exam: Normal Bowel Sounds, Soft, Non-Tender, No Organomegaly, No Distention, No Abnormal Bruit, No Mass, Pelvis Stable Back Exam: Reports: Normal Inspection, Full Range of Motion Extremities: Normal Inspection, Normal Range of Motion, Non-Tender, No Pedal Edema, Normal Capillary Refill Skin: Reports: Warm, Dry, Intact Neurological: Reports: No New Focal Deficit Psy/Mental Status: Reports: Alert, Normal Affect, Normal Mood
[2020-06-09] MEDS ORDERED: atorvaSTATin 20 MG Tab PO SCH (21:00)
== END 2020-06-09 16:15 | disposition home or self-care (01) ==
LOC: DL.ED 21:27 → DL.MS 23:19
PROVIDERS: ADMIT Internal Medicine; ATTEND Internal Medicine
DX: R06.02 Shortness of breath (principal); J44.1 Chronic obstructive pulmonary disease with (acute) exacerbation; I25.10 Atherosclerotic heart disease of native coronary artery without angina pectoris; E78.5 Hyperlipidemia, unspecified; N18.9 Chronic kidney disease, unspecified; I50.40 Unspecified combined systolic (congestive) and diastolic (congestive) heart failure; I48.20 Chronic atrial fibrillation, unspecified; Z20.822 Contact with and (suspected) exposure to COVID-19; Z79.01 Long term (current) use of anticoagulants; Z79.899 Other long term (current) drug therapy; Z79.82 Long term (current) use of aspirin
CPT/HCPCS: 36415; 71045; 80048; 80053; 83735; 83880; 84484; 85025; 85027; 85610; 93005; 96374; 96375; 96376; 99285; A9270; G0378; J2920; J2930; J3490; J7030; U0002; 99217; 99219; 99284; J7620-GY

== ENCOUNTER → 2020-12-23 | Day surgery (SDC) | payer MEDICARE, OTHER ==
[~2020-12-23] MED LIST: Acetaminophen 325 MG Tab PO PRN; Acetaminophen/Codeine 300-30 MG Tab PO PRN; Apraclonidine 0.5% Ophth Soln 5 ML Bot EYERT ONE; Balanced Salt Solution Ophth Irrig 500 ML Bottle IOCULAR ONE; Cataract Ophth Solution EYERT ONE; Chondroitin Sulfate/Hyaluronate Sodium Ophth Inj 0.75 ML Syringe EYERT ONE; Dexamethasone 4 MG/ML SDV IV ONE; Dexamethasone/Neomycin/Polymyxin B Ophth Oint 3.5 GM Tube EYERT ONE; Diclofenac Sodium 0.1% Ophth Soln 5 ML Bottle EYERT ONE; Lidocaine 1% 30 ML SDV ONE; Midazolam 1 MG/ML 2 ML SDV IV ONE; Moxifloxacin 0.5% Ophth Soln 3 ML Bottle EYERT ONE; Ondansetron 4 MG/2 ML SDV IVPUSH PRN; Phenylephrine 10% Ophth Soln 5 ML Bot EYERT ONE; Povidone-Iodine 5% Sterile Ophth Soln 30 ML Bottle EYERT ONE; Proparacaine 0.5% Ophth Soln 15 ML Bottle EYERT ONE; Sodium Chloride 0.9% 10 ML Syringe FLUSH PRN; Sodium Chloride 0.9% 10 ML Syringe IV ONE; Tetracaine HCl/PF 0.5% 4 ML Bottle EYERT ONE; Timolol Maleate 0.5% Ophth Soln 5 ML Bottle EYERT ONE; Tropicamide 1% Ophth Soln 15 ML Bottle EYERT ONE; Vancomycin 500 MG SDV EYERT ONE
[2020-12-23 11:33] VITALS: BP 100/61; PULSE 70
--- NOTE | 2020-12-25 01:40 | OR ---
DATE: 12/23/2020 PREOPERATIVE DIAGNOSIS: Visually significant mixed cataract, right eye. POSTOPERATIVE DIAGNOSIS: Visually significant mixed cataract, right eye. PROCEDURE: Extracapsular cataract extraction with intraocular lens implant, right eye. ANESTHESIA: Topical/local MAC. COMPLICATIONS: None. INDICATION: Mr. Gray was seen in the clinic. He is unhappy with his vision and has multiple difficulties with activities of daily living. 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 Dr. Moore was not able to improve his vision with a change in glasses. I have explained options, offered cataract surgery, and I explained risks including the potential for infection, retinal detachment, loss of vision, need for additional surgery amongst others. We discussed implant options. He has requested a monofocal implant. He is comfortable wearing glasses following surgery if necessary. He has difficulty seeing television, books, magazines, newspapers, pill bottles, difficulty with driving, difficulty with bright lights and glare. He is unhappy and requests surgery and voiced an understanding with respect to risks and limitations. OPERATIVE DESCRIPTION: After informed consent was obtained and the risks, benefits, and alternatives were explained, the patient was brought to the operative suite and topical anesthesia was administered. The patient was then prepped and draped in the sterile fashion and attention was placed on the right eye. A sterile lid speculum was placed into the right eye to allow operative exposure. A full-thickness paracentesis was made in the temporal portion of the operative eye. Preservative-free lidocaine 0.1 mL was injected into the anterior chamber followed by viscoelastic. A full-thickness corneal incision was then made into the anterior chamber. A bent needle cystotome was used to create a small maria del carmen in the anterior capsule. The capsulorrhexis forceps was then used to create a 360-degree curvilinear capsulorrhexis. The nucleus was then removed using a phacoemulsification handpiece and the remaining cortical material was then removed with irrigation and aspiration handpiece. Following removal of the cortical material, the capsular bag was then inspected and noted to be free of any holes or tears. Viscoelastic was then injected into the capsular bag and the intraocular lens was inserted into the capsular bag. The viscoelastic material was then removed from both the anterior and posterior chambers and from behind the IOL. The lens and capsular bag were then reinspected. The IOL was well centered and the capsular bag intact. The wound and paracentesis sites were inspected and hydrated with balanced saline solution. Both were found to be self- sealing. The intraocular pressure was assessed digitally and found to be within normal range. A good red reflex was noted at the completion of the procedure. No complications occurred during the operation. At the completion of the procedure, Maxitrol, Voltaren, and Iopidine drops were placed into the operative eye. A sterile eye shield was placed over the operative eye and the patient was transported to the postoperative recovery area having tolerated the procedure well. Postoperative instructions were given along with a postoperative appointment. The patient was advised to call with any questions or concerns. [facility] /[id number]
== END | disposition home or self-care (01) ==
LOC: DL.SDS 09:10
PROVIDERS: ATTEND Ophthalmology
DX: H26.8 Other specified cataract (principal); I11.0 Hypertensive heart disease with heart failure; I50.9 Heart failure, unspecified; E78.00 Pure hypercholesterolemia, unspecified; G47.30 Sleep apnea, unspecified; F17.210 Nicotine dependence, cigarettes, uncomplicated; J44.9 Chronic obstructive pulmonary disease, unspecified; D64.9 Anemia, unspecified; Z86.73 Personal history of transient ischemic attack (TIA), and cerebral infarction without residual deficits; Z79.82 Long term (current) use of aspirin; Z79.899 Other long term (current) drug therapy
CPT/HCPCS: 00142; 66984; A9270; J1100; J2250; J3370; V2632

== ENCOUNTER 2021-01-24 01:20 | Emergency (ER) | payer MEDICARE, OTHER ==
--- NOTE | 2021-01-24 01:28 | EDM.PDOC ---
ED HPI GENERAL MEDICAL PROBLEM - General Chief Complaint: Gastrointestinal Problem Stated Complaint: AMBULANCE Time Seen by Provider: 01/24/21 01:22 Source of Information: Reports: Patient - History of Present Illness INITIAL COMMENTS - FREE TEXT/NARRATIVE: Pt is here for a GI bleed that started earlier today. He has some issues with incontince and does wear a pad. He noted that his pas earlier tonight had quite a pit of blood on it. He became concerned about the amount, as did his , so EMS was called to bring him in. He has a history of a stroke and a pace maker. He does take a blood thinner. He has known hemorrhoids and does have some bleeding occasionally, but nothing like this. It is sravani red blood that was in the toilet and on his pad. Pt denies any diarrhea or constipation. No vomiting or nausea. No abdominal pain. No recent illnesses or exposure to COVID. - Related Data Allergies Allergy/AdvReac Type Severity Reaction Status Date / Time No Known Allergies Allergy Verified 12/23/20 09:32 Home Meds: Home Meds FLUoxetine HCl [Fluoxetine HCl] 40 mg PO DAILY 09/20/13 [History] Flecainide Acetate 25 mg PO BIDMEALS 05/10/16 [History] Metoprolol Succinate 50 mg PO DAILY 05/10/16 [History] Rivaroxaban [Xarelto] 20 mg PO DAILY 05/10/16 [History] Aspirin [Halfprin] 81 mg PO DAILY 10/03/18 [History] Lisinopril 20 mg PO DAILY 10/03/18 [History] atorvaSTATin [Lipitor] 20 mg PO BEDTIME #30 tablet 10/08/18 [Rx] Acetaminophen [Acetaminophen Extra Strength] 1,000 mg PO Q8HR 01/20/20 [History] Albuterol [Proventil Neb Soln] 1 vial INH QID PRN 01/20/20 [History] Bumetanide [Bumex] 2 mg PO BID 01/20/20 [History] Cholecalciferol (Vitamin D3) [Vitamin D3] 5,000 unit PO DAILY 01/20/20 [History] Ferrous Sulfate 325 mg PO DAILY 01/20/20 [History] Magnesium Oxide [Magnesium] 250 mg PO DAILY 01/20/20 [History] Potassium Chloride 20 meq PO 5XDAY 01/20/20 [History] Sennosides/Docusate Sodium [Senna-S] 2 tab PO BID PRN 01/20/20 [History] Cyanocobalamin (Vitamin B-12) [Vitamin B-12] 1,000 mcg PO DAILY 06/08/20 [History] Past Medical History HEENT History: Reports: Hard of Hearing, Impaired Vision, Other (See Below) Other HEENT History: cleft palette, wears glasses Cardiovascular History: Reports: Afib, Heart Failure, High Cholesterol, Hypertension, Pacemaker Respiratory History: Reports: COPD, Sleep Apnea, SOB Other Respiratory History: uses CPAP at home, narcalepsy Gastrointestinal History: Reports: GI Bleed Genitourinary History: Reports: Urinary Incontinence Other Genitourinary History: at times Neurological History: Reports: CVA, Speech Problems, TIA Other Neuro History: Sondheimer Palsey Psychiatric History: Reports: Depression Endocrine/Metabolic History: Reports: Hypomagnesemia, Vitamin D Deficiency Other Endocrine/Metabolic History: Pre diabetes, glucose 116 Hematologic History: Reports: Anemia, Anticoagulation Therapy, B12 Deficiency, Bleeding Disorder, Blood Transfusion(s), Iron Deficiency Immunologic History: Reports: None Oncologic (Cancer) History: Reports: None Dermatologic History: Reports: None - Infectious Disease History Infectious Disease History: Reports: Measles, Mumps - Past Surgical History HEENT Surgical History: Reports: Eye Surgery, Oral Surgery, Tonsillectomy Other HEENT Surgeries/Procedures: Cleft palate, 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 Upper and lower dentures. GI Surgical History: Reports: Colonoscopy, Polypectomy Musculoskeletal Surgical History: Reports: Hip Replacement Other Musculoskeletal Surgeries/Procedures:: Right hip replacement Jan 2020 Social & Family History - Family History Family Medical History: No Pertinent Family History - Caffeine Use Caffeine Use: Reports: Coffee Other Caffeine Use: 3 cups of coffee a day, 2 cans of coke per week. Caffeine Use Comment: decaff only - Living Situation & Occupation Living situation: Reports: with Spouse ED ROS GENERAL - Review of Systems Review Of Systems: Comprehensive ROS is negative, except as noted in HPI. ED EXAM, GI/ABD - Physical Exam Exam: See Below Exam Limited By: No Limitations General Appearance: Alert, WD/WN, No Apparent Distress Eyes: Bilateral: Normal Appearance Ears: Normal External Exam Throat/Mouth: Normal Inspection, Normal Lips, Normal Teeth, Normal Voice, No Airway Compromise Head: Atraumatic, Normocephalic Neck: Supple, Non-Tender Respiratory/Chest: No Respiratory Distress, Lungs Clear, Normal Breath Sounds, No Accessory Muscle Use Cardiovascular: Normal Peripheral Pulses, Regular Rate, Rhythm, No Murmur GI/Abdominal Exam: Normal Bowel Sounds, Soft, Non-Tender, No Distention (Male) Exam: Deferred Rectal (Males) Exam: Bloody Stool, Hemorrhoids Extremities: Normal Inspection, Normal Capillary Refill Neurological: Alert, Oriented, Normal Cognition, No Motor/Sensory Deficits Psychiatric: Normal Affect, Normal Mood Skin Exam: Warm, Dry, Intact, Normal Color Course - Vital Signs Last Recorded V/S: Last Vital Signs Temp 97.9 F 01/24/21 01:22 Pulse 70 01/24/21 02:41 Resp 16 01/24/21 02:41 BP 125/68 01/24/21 02:41 Pulse Ox 95 01/24/21 02:41 - Orders/Labs/Meds Orders: Active Orders 24 hr Category Date Time Status Peripheral IV Care [RC] . DIRECTED Care 01/24/21 01:28 Ordered Sodium Chloride 0.9% [Saline Flush] Med 01/24/21 01:28 Ordered 10 ml FLUSH ASDIRECTED PRN Peripheral IV Insertion Adult [OM.PC] Stat Oth 01/24/21 01:28 Ordered Medication Orders Sodium Chloride (Sodium Chloride 0.9% 10 Ml Syringe) 10 ml FLUSH ASDIRECTED PRN PRN Reason: Keep Vein Open Last Admin: 01/24/21 01:36 Dose: 10 ml Documented by: ROBERT Labs: Laboratory Tests 01/24/21 01/24/21 01/24/21 Range/Units 01:25 01:25 01:25 WBC 6.9 (5.0-10.0) 10^3/uL RBC 3.80 L (4.6-6.2) 10^6/uL Hgb 12.4 L (14.0-18.0) g/dL Hct 38.0 L (40.0-54.0) % MCV 100.0 (80-100) fL MCH 32.6 (27.0-34.0) pg MCHC 32.6 L (33.0-35.0) g/dL Plt Count 254 (150-450) 10^3/uL Neut % (Auto) 53.0 (42.2-75.2) % Lymph % (Auto) 27.2 (20.5-50.1) % Bremer % (Auto) 14.5 H (2-8) % Eos % (Auto) 4.9 H (1.0-3.0) % Baso % (Auto) 0.4 (0.0-1.0) % PT 13.8 H (9.0-12.0) SEC INR 1.4 H (0.9-1.2) APTT 37.7 H (22.0-34.0) SEC Sodium 140 (136-145) mmol/L Potassium 5.0 (3.5-5.1) mmol/L Chloride 104 (98-107) mmol/L Carbon Dioxide 27 (21-32) mmol/L Anion Gap 14.0 H (7-13) mEq/L BUN 41 H (7-18) mg/dL Creatinine 1.59 H (0.70-1.30) mg/dL Est Cr Clr Drug Dosing 36.35 mL/min Estimated GFR (MDRD) 42 BUN/Creatinine Ratio 25.8 (No establ ref range) Glucose 101 H (70-99) mg/dL Lactic Acid (0.4-2.0) mmol/L Calcium 8.7 (8.5-10.1) mg/dL Total Bilirubin 0.3 (0.2-1.0) mg/dL AST 14 L (15-37) U/L ALT 23 (16-63) U/L Alkaline Phosphatase 104 (46-116) U/L Total Protein 7.2 (6.4-8.2) g/dL Albumin 3.3 L (3.4-5.0) g/dL Globulin 3.9 Albumin/Globulin Ratio 0.85 09/19/21 Range/Units 01:25 WBC (5.0-10.0) 10^3/uL RBC (4.6-6.2) 10^6/uL Hgb (14.0-18.0) g/dL Hct (40.0-54.0) % MCV (80-100) fL MCH (27.0-34.0) pg MCHC (33.0-35.0) g/dL Plt Count (150-450) 10^3/uL Neut % (Auto) (42.2-75.2) % Lymph % (Auto) (20.5-50.1) % Bremer % (Auto) (2-8) % Eos % (Auto) (1.0-3.0) % Baso % (Auto) (0.0-1.0) % PT (9.0-12.0) SEC INR (0.9-1.2) APTT (22.0-34.0) SEC Sodium (136-145) mmol/L Potassium (3.5-5.1) mmol/L Chloride (98-107) mmol/L Carbon Dioxide (21-32) mmol/L Anion Gap (7-13) mEq/L BUN (7-18) mg/dL Creatinine (0.70-1.30) mg/dL Est Cr Clr Drug Dosing mL/min Estimated GFR (MDRD) BUN/Creatinine Ratio (No establ ref range) Glucose (70-99) mg/dL Lactic Acid 0.5 (0.4-2.0) mmol/L Calcium (8.5-10.1) mg/dL Total Bilirubin (0.2-1.0) mg/dL AST (15-37) U/L ALT (16-63) U/L Alkaline Phosphatase (46-116) U/L Total Protein (6.4-8.2) g/dL Albumin (3.4-5.0) g/dL Globulin Albumin/Globulin Ratio Meds: Medications Generic Name Dose Route Start Last Admin Trade Name Tao PRN Reason Stop Dose Admin Sodium Chloride 10 ml 01/24/21 01:28 01/24/21 01:36 Sodium Chloride 0.9% 10 Ml Syringe FLUSH 10 ml ASDIRECTED PRN Administration Keep Vein Open Discontinued Medications Generic Name Dose Route Start Last Admin Trade Name Freq PRN Reason Stop Dose Admin Iopamidol 100 ml 01/24/21 01:29 Iopamidol 612 Mg/Ml 100 Ml Bottle IVPUSH 01/24/21 01:30 ONETIME ONE - Re-Assessments/Exams Free Text/Narrative Re-Assessment/Exam: Reviewed labs and CT results with the pt. Advised pt his hemoglobin is stable and there was no signs of infection or overt bleeding in his GI tract. His bleeding is most likely from his hemorrhoids and seems to be slowing down already. Reviewed reasons to call/return to the ER including increased bleeding, lightheadedness or dizziness. Call the clinic on monday to set up a follow up appointment. Pt verbalized understanding and is ready to go home. 01/24/21 03:00 Departure - Departure Time of Disposition: 03:06 Disposition: Home, Self-Care 01 Condition: Fair Clinical Impression: Bleeding hemorrhoids - Discharge Information *PRESCRIPTION DRUG MONITORING PROGRAM REVIEWED*: Not Applicable *COPY OF PRESCRIPTION DRUG MONITORING REPORT IN PATIENT KIMBERLEY: Not Applicable Instructions: Hemorrhoids, [id number] Forms: ED Department Discharge Additional Instructions: Reviewed reasons to call/return to the ER including increased bleeding, lightheadedness or dizziness. Call the clinic on monday to set up a follow up appointment. Sepsis Event Note (ED) - Focused Exam Vital Signs: Vital Signs Temp Pulse Resp BP Pulse Ox 01/24/21 02:41 70 16 125/68 95 01/24/21 01:22 97.9 F 74 16 135/69 94 L - My Orders Last 24 Hours: My Active Orders 01/24/21 01:28 Peripheral IV Care [RC] . DIRECTED Sodium Chloride 0.9% [Saline Flush] 10 ml FLUSH ASDIRECTED PRN Peripheral IV Insertion Adult [OM.PC] Stat - Assessment/Plan Last 24 Hours: My Active Orders 01/24/21 01:28 Peripheral IV Care [RC] . DIRECTED Sodium Chloride 0.9% [Saline Flush] 10 ml FLUSH ASDIRECTED PRN Peripheral IV Insertion Adult [OM.PC] Stat
[2021-01-24] MEDS ORDERED: Iopamidol 612 MG/ML 100 ML Bottle IVPUSH ONE (01:29)
[2021-01-24] MEDS: Sodium Chloride 0.9% 10 ML Syringe FLUSH PRN (01:36)
[2021-01-24 02:12] LABS: PTT,PARTIAL THROMBOPLSTIN TIME 37.7 SEC (22.0-34.0)
--- NOTE | 2021-01-24 02:37 | CT ---
PROCEDURE INFORMATION: Exam: CT Abdomen And Pelvis With Contrast Exam date and time: 01/24/2021 1:48 AM Age: 85 years old Clinical indication: Other: High creatnine; Additional info: Gi bleed TECHNIQUE: Imaging protocol: Computed tomography of the abdomen and pelvis with contrast. Radiation optimization: All CT scans at this facility use at least one of these dose optimization techniques: automated exposure control; mA and/or kV adjustment per patient size (includes targeted exams where dose is matched to clinical indication); or iterative reconstruction. COMPARISON: CR Chest 1V Frontal 06/08/2020 9:31 PM FINDINGS: Liver: Normal. No mass. Gallbladder and bile ducts: There are small gallstones present. Common bile duct is prominent measuring 13 mm in its midportion tapering to normal caliber within the pancreas. Pancreas: Normal. No ductal dilation. Spleen: Normal. No splenomegaly. Adrenal glands: Normal. No mass. Kidneys and ureters: There are bilateral hypoattenuation cystic lesions seen within the kidneys, the largest cyst is seen in the upper pole of the left kidney anteriorly measuring 3.9 cm. Stomach and bowel: Unremarkable. No obstruction. No mucosal thickening. Appendix: No evidence of appendicitis. Intraperitoneal space: Unremarkable. No free air. No significant fluid collection. Vasculature: Calcifications are seen within the thoracic and abdominal aorta, iliac and femoral arteries bilaterally and within branches of the celiac and superior mesenteric arteries. Calcifications are seen in the renal arteries bilaterally. Lymph nodes: Unremarkable. No enlarged lymph nodes. Urinary bladder: Unremarkable as visualized. Reproductive: Unremarkable as visualized. 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 Soft tissues: Unremarkable. IMPRESSION: 1. There are tiny gallstones without evidence of cholecystitis 2. Bilateral benign renal cysts, the largest is seen in the left kidney measuring 3.9 cm. No further workup needed. COMMENTS: Consistent with the [employer]'s Incidental Findings Committee white paper (J Am Maria Alejandra Radiol 2018): Any incidental renal lesion less than 1 cm or classified as too small to characterize, or any incidental cystic renal lesion characterized as simple-appearing, is likely benign. No follow-up imaging is recommended for these lesions per consensus recommendations based on imaging criteria.
[2021-01-24 02:42] VITALS: BP 125/68; PULSE 70
== END 2021-01-24 03:15 | disposition home or self-care (01) ==
LOC: DL.ED 01:20
DX: K64.9 Unspecified hemorrhoids (principal); I11.0 Hypertensive heart disease with heart failure; I50.9 Heart failure, unspecified; E78.00 Pure hypercholesterolemia, unspecified; I48.91 Unspecified atrial fibrillation; J44.9 Chronic obstructive pulmonary disease, unspecified; Z86.73 Personal history of transient ischemic attack (TIA), and cerebral infarction without residual deficits; Z79.899 Other long term (current) drug therapy
CPT/HCPCS: 36415; 74177; 80053; 83605; 85025; 85610; 85730; 99284-25

== ENCOUNTER 2022-01-12 21:30 | Observation (INO) | payer MEDICARE, OTHER ==
[~2022-01-12 21:30] MED LIST changes: -Acetaminophen 325 MG Tab PO PRN; -Acetaminophen/Codeine 300-30 MG Tab PO PRN; +Albuterol 0.083% 2.5 MG/3 ML Neb Soln NEB ONE; -Apraclonidine 0.5% Ophth Soln 5 ML Bot EYERT ONE; -Balanced Salt Solution Ophth Irrig 500 ML Bottle IOCULAR ONE; +Bumetanide 1 MG/4 ML MDV IVPUSH ONE; -Cataract Ophth Solution EYERT ONE; -Chondroitin Sulfate/Hyaluronate Sodium Ophth Inj 0.75 ML Syringe EYERT ONE; -Dexamethasone 4 MG/ML SDV IV ONE; -Dexamethasone/Neomycin/Polymyxin B Ophth Oint 3.5 GM Tube EYERT ONE; -Diclofenac Sodium 0.1% Ophth Soln 5 ML Bottle EYERT ONE; -Lidocaine 1% 30 ML SDV ONE; -Midazolam 1 MG/ML 2 ML SDV IV ONE; -Moxifloxacin 0.5% Ophth Soln 3 ML Bottle EYERT ONE; -Ondansetron 4 MG/2 ML SDV IVPUSH PRN; -Phenylephrine 10% Ophth Soln 5 ML Bot EYERT ONE; -Povidone-Iodine 5% Sterile Ophth Soln 30 ML Bottle EYERT ONE; -Proparacaine 0.5% Ophth Soln 15 ML Bottle EYERT ONE; -Sodium Chloride 0.9% 10 ML Syringe FLUSH PRN; -Sodium Chloride 0.9% 10 ML Syringe IV ONE; -Tetracaine HCl/PF 0.5% 4 ML Bottle EYERT ONE; -Timolol Maleate 0.5% Ophth Soln 5 ML Bottle EYERT ONE; -Tropicamide 1% Ophth Soln 15 ML Bottle EYERT ONE; -Vancomycin 500 MG SDV EYERT ONE
[2022-01-12 22:09] LABS: ANION GAP 9.5 mEq/L (7-13)
[2022-01-12] MEDS ORDERED: methylPREDNISolone Sodium Succinate 125 MG/2 ML SDV IVPUSH ONE (22:22)
[2022-01-12] MEDS ORDERED: Levofloxacin/Dextrose 5%-Water 500 MG in Premix Bag 1 BAG IV ONE (22:58)
[2022-01-12] MEDS ORDERED: Albuterol 0.083% 2.5 MG/3 ML Neb Soln NEB ONE (23:21)
[2022-01-13] MEDS ORDERED: Albuterol/Ipratropium 3.0-0.5 MG/3 ML Neb Soln NEB SCH (00:15)
[2022-01-13] MEDS ORDERED: Albuterol/Ipratropium 3.0-0.5 MG/3 ML Neb Soln NEB PRN ×2 (01:52)
[2022-01-13] MEDS ORDERED: Acetaminophen 325 MG Tab PO PRN (02:35)
[2022-01-13] MEDS ORDERED: methylPREDNISolone Sodium Succinate 40 MG/1 ML SDV IVPUSH SCH (04:00)
[2022-01-13] MEDS: Albuterol/Ipratropium 3.0-0.5 MG/3 ML Neb Soln NEB SCH ×5 (05:14→19:21)
[2022-01-13] MEDS: methylPREDNISolone Sodium Succinate 40 MG/1 ML SDV IVPUSH SCH ×3 (05:14→21:46)
[2022-01-13 06:49] LABS: ANION GAP 14.1 mEq/L (7-13)
[2022-01-13] MEDS ORDERED: Docusate Sodium 100 MG Cap PO PRN (09:27)
[2022-01-13] MEDS ORDERED: Ondansetron 4 MG/2 ML SDV IVPUSH PRN (09:27)
[2022-01-13] MEDS ORDERED: Polyethylene Glycol 3350 Powder 17 GM Packet PO PRN (09:27)
[2022-01-13] MEDS ORDERED: Ondansetron 4 MG Tab.DIS PO PRN (09:27)
[2022-01-13] MEDS ORDERED: Sodium Chloride 0.9% 10 ML Syringe FLUSH PRN (09:28)
[2022-01-13] MEDS ORDERED: Sodium Chloride 0.9% 250 ML IV SCH (09:45)
[2022-01-13] MEDS ORDERED: Heparin Sodium 5,000 Units/ML Vial SUBCUT SCH (14:00)
[2022-01-13] MEDS: FLECAINIDE ACETATE 100 MG PO SCH (17:58)
[2022-01-13] MEDS: atorvaSTATin 20 MG Tab PO SCH (20:08)
[2022-01-13] MEDS: Sodium Chloride 0.9% 10 ML Syringe FLUSH SCH (20:09)
[2022-01-13] MEDS ORDERED: Albuterol/Ipratropium 3.0-0.5 MG/3 ML Neb Soln INH ONE (23:00)
[2022-01-14] MEDS: Sodium Chloride 0.9% 1,000 ML IV SCH ×2 (00:09→19:13)
[2022-01-14] MEDS: Albuterol/Ipratropium 3.0-0.5 MG/3 ML Neb Soln NEB SCH ×7 (00:35→23:25)
[2022-01-14] MEDS: methylPREDNISolone Sodium Succinate 40 MG/1 ML SDV IVPUSH SCH ×3 (05:17→21:27)
[2022-01-14 06:52] LABS: ANION GAP 12.9 mEq/L (7-13)
[2022-01-14] MEDS: Lisinopril 20 MG Tab PO SCH (08:34)
[2022-01-14] MEDS: Rivaroxaban 10 MG Tab PO SCH (08:34)
[2022-01-14] MEDS: FLUoxetine 10 MG Cap PO SCH (08:34)
[2022-01-14] MEDS: Aspirin 81 MG Tab.EC PO SCH (08:34)
[2022-01-14] MEDS: Metoprolol Succinate 50 MG Tab.ER PO SCH (08:35)
[2022-01-14] MEDS: Sodium Chloride 0.9% 10 ML Syringe FLUSH SCH ×2 (08:35→20:49)
[2022-01-14] MEDS: FLECAINIDE ACETATE 100 MG PO SCH ×2 (08:37→17:36)
[2022-01-14] MEDS ORDERED: Ferrous Sulfate 325 MG Tab PO SCH ×2 (09:00→16:11)
[2022-01-14] MEDS ORDERED: Albuterol 6.7 GM Inhaler INH ONE (10:04)
[2022-01-14] MEDS: Formoterol/Mometasone 100-5 MCG 8.8 GM Inhaler IH SCH ×2 (10:37→17:35)
[2022-01-14] MEDS: atorvaSTATin 20 MG Tab PO SCH (20:49)
[2022-01-15] MEDS: Albuterol/Ipratropium 3.0-0.5 MG/3 ML Neb Soln NEB SCH ×4 (03:25→15:32)
[2022-01-15] MEDS: methylPREDNISolone Sodium Succinate 40 MG/1 ML SDV IVPUSH SCH ×2 (06:32→16:17)
[2022-01-15] MEDS: Formoterol/Mometasone 100-5 MCG 8.8 GM Inhaler IH SCH (06:37)
[2022-01-15 06:48] LABS: ANION GAP 14.1 mEq/L (7-13)
[2022-01-15] MEDS: FLUoxetine 10 MG Cap PO SCH (08:28)
[2022-01-15] MEDS: Metoprolol Succinate 50 MG Tab.ER PO SCH (08:29)
[2022-01-15] MEDS: Aspirin 81 MG Tab.EC PO SCH (08:29)
[2022-01-15] MEDS: Lisinopril 20 MG Tab PO SCH (08:30)
[2022-01-15] MEDS: Rivaroxaban 10 MG Tab PO SCH (08:31)
[2022-01-15] MEDS: FLECAINIDE ACETATE 100 MG PO SCH (10:46)
[2022-01-15] MEDS: Sodium Chloride 0.9% 10 ML Syringe FLUSH SCH (10:47)
[2022-01-15 12:59] VITALS: BP 103/64; PULSE 71
[2022-01-15] MEDS ORDERED: Rivaroxaban 10 MG Tab ONE (15:38)
[2022-01-15] MEDS ORDERED: Docusate Sodium 100 MG Cap ONE (15:38)
[2022-01-15] MEDS ORDERED: Azithromycin 250 MG Tab ONE (15:38)
[2022-01-15] MEDS ORDERED: predniSONE 20 MG Tab ONE (15:39)
[2022-01-15] MEDS ORDERED: Docusate Sodium 100 MG Cap PO ONE (15:59)
[2022-01-15] MEDS ORDERED: Rivaroxaban 10 MG Tab PO ONE (15:59)
[2022-01-15] MEDS ORDERED: Azithromycin 250 MG Tab PO ONE (15:59)
[2022-01-15] MEDS ORDERED: predniSONE 20 MG Tab PO ONE (15:59)
== END 2022-01-15 16:00 | disposition home or self-care (01) ==
LOC: DL.ED 21:30 → DL.MS 01-13 00:15
PROVIDERS: ADMIT Hospitalist; ATTEND Hospitalist
DX: J96.01 Acute respiratory failure with hypoxia (principal); J44.1 Chronic obstructive pulmonary disease with (acute) exacerbation; F17.210 Nicotine dependence, cigarettes, uncomplicated; I11.0 Hypertensive heart disease with heart failure; I50.30 Unspecified diastolic (congestive) heart failure; E78.00 Pure hypercholesterolemia, unspecified; N17.9 Acute kidney failure, unspecified; G47.30 Sleep apnea, unspecified; Z86.73 Personal history of transient ischemic attack (TIA), and cerebral infarction without residual deficits; Z86.16 Personal history of COVID-19; Z90.49 Acquired absence of other specified parts of digestive tract; Z98.890 Other specified postprocedural states; Z79.899 Other long term (current) drug therapy; Z95.0 Presence of cardiac pacemaker; Z20.822 Contact with and (suspected) exposure to COVID-19
CPT/HCPCS: 36415; 71045; 80048; 80053; 81001; 82150; 83605; 83690; 83735; 83880; 84484; 85025; 85379; 85610; 86140; 87040; 93005; 94640; A9270; J1956; J2920; J2930; J3490; J7030; J7050; U0002; 96365; 96375; 99285-25; J7613-GY; J7620-GY

== ENCOUNTER 2022-02-07 02:52 | Emergency (ER) | payer MEDICARE, OTHER ==
[2022-02-07] MEDS ORDERED: Sodium Chloride 0.9% 1,000 ML IV ONE (15:23)
[2022-02-07] MEDS ORDERED: Bumetanide 1 MG/4 ML MDV IV ONE (16:52)
[2022-03-04 15:45] LABS: CHLORIDE,CL 101 mmol/L (98-107); SODIUM,NA 138 mmol/L (136-145)
[2022-03-04 15:46] LABS: ANION GAP 6.9 mEq/L (7-13); ESTIMATED GFR 42 mL/min (>=60)
[2022-03-04 15:47] LABS: PTT,PARTIAL THROMBOPLSTIN TIME 30.7 SEC (22.0-34.0)
== END 2022-02-07 19:21 | disposition home or self-care (01) ==
LOC: DL.ED 02:52 → EDSTATUS 08:04 → DL.ED 19:21
DX: R33.9 Retention of urine, unspecified (principal)
CPT/HCPCS: 36415; 51702; 71045; 80053; 81001; 83605; 83880; 84484; 85025; 85379; 85610; 85730; 96374; 99283; J3490; J7030

== ENCOUNTER 2022-09-01 11:43 | Emergency (ER) | payer MEDICARE, OTHER ==
[2022-09-01] MEDS ORDERED: Pantoprazole 40 MG Vial IVPUSH ONE (11:58)
[2022-09-01 12:27] LABS: ANION GAP 8.1 mEq/L (7-13)
[2022-09-01 12:30] LABS: PTT,PARTIAL THROMBOPLSTIN TIME 29.4 SEC (22.0-34.0)
[2022-09-01 13:31] VITALS: PULSE 71
[2022-09-01 14:01] VITALS: BP 117/66
== END 2022-09-01 15:00 ==
LOC: DL.ED 11:43
DX: K92.2 Gastrointestinal hemorrhage, unspecified (principal); I13.0 Hypertensive heart and chronic kidney disease with heart failure and stage 1 through stage 4 chronic kidney disease, or unspecified chronic kidney disease; I50.9 Heart failure, unspecified; N18.32 Chronic kidney disease, stage 3b; D63.1 Anemia in chronic kidney disease; J44.9 Chronic obstructive pulmonary disease, unspecified; E78.00 Pure hypercholesterolemia, unspecified; I48.91 Unspecified atrial fibrillation; Z72.0 Tobacco use; Z99.81 Dependence on supplemental oxygen; Z95.0 Presence of cardiac pacemaker; Z86.73 Personal history of transient ischemic attack (TIA), and cerebral infarction without residual deficits; Z86.16 Personal history of COVID-19; Z79.899 Other long term (current) drug therapy; Z79.01 Long term (current) use of anticoagulants
CPT/HCPCS: 36415; 36430; 80053; 82272; 85025; 85610; 85730; 86850; 86900; 86901; 86920; 86922; 96374; 99285; C9113; P9016

== ENCOUNTER 2022-09-19 02:42 | Inpatient (IN) | payer MEDICARE, OTHER ==
[2022-09-19] MEDS: Sodium Chloride 0.9% 10 ML Syringe FLUSH PRN (02:52)
[2022-09-19 03:12] LABS: BASOPHILS PERCENT AUTO 0.1 % (0.0-1.0); EOSINOPHILS PERCENT AUTO 0.4 % (1.0-3.0); HEMATOCRIT 29.9 % (40.0-54.0); HEMOGLOBIN 9.2 g/dL (14.0-18.0); LYMPHOCYTES PERCENT AUTO 17.2 % (20.5-50.1); MEAN CORPUSCULAR HEMOGLOBIN 28.7 pg (27.0-34.0); MEAN CORPUSCULAR HGB CONC 30.8 g/dL (33.0-35.0); MEAN CORPUSCULAR VOLUME 93.1 fL (80-100); MONOCYTES PERCENT AUTO 10.6 % (2-8); NEUTROPHILS PERCENT AUTO 71.7 % (42.2-75.2); PLATELET COUNT,PLT 245 10^3/uL (150-450); RED BLOOD CELL COUNT 3.21 10^6/uL (4.6-6.2)
[2022-09-19 03:29] LABS: B-TYPE NATRIURETIC PEPTIDE,BNP 800 pg/ml (0-100)
[2022-09-19 03:35] LABS: INR 1.4 (0.9-1.2); PROTHROMBIN TIME 14.5 SEC (9.0-12.0); PTT,PARTIAL THROMBOPLSTIN TIME 43.9 SEC (22.0-34.0)
[2022-09-19] MEDS ORDERED: Albuterol/Ipratropium 3.0-0.5 MG/3 ML Neb Soln NEB ONE (03:43)
[2022-09-19] MEDS ORDERED: methylPREDNISolone Sodium Succinate 125 MG/2 ML SDV IVPUSH ONE (03:43)
[2022-09-19 05:04] LABS: A/G RATIO 0.94; ALANINE AMINOTRANSFERASE,ALT 37 U/L (16-63); ALBUMIN 3.3 g/dL (3.4-5.0); ALKALINE PHOSPHATASE 77 U/L (46-116); ANION GAP 12.1 mEq/L (7-13); ASPARTATE AMNIOTRANSFERASE,AST 28 U/L (15-37); BILIRUBIN TOTAL 0.5 mg/dL (0.2-1.0); BLOOD UREA NITROGEN,BUN 26 mg/dL (7-18); BUN/CREATININE RATIO 14.8 (No establ ref range); C-REACTIVE PROTEIN 3.7 mg/dL (0.0-0.9); CALCIUM 8.4 mg/dL (8.5-10.1); CARBON DIOXIDE,CO2 34 mmol/L (21-32); CHLORIDE,CL 103 mmol/L (98-107); CREATININE 1.76 mg/dL (0.70-1.30); EST CRCL DRUG DOSING (CG) 44.69 mL/min; ESTIMATED GFR 37 mL/min (>=60); GLUCOSE RANDOM 140 mg/dL (70-99); LACTIC ACID 0.8 mmol/L (0.4-2.0); MAGNESIUM 2.1 mg/dL (1.8-2.4); POTASSIUM,K 4.1 mmol/L (3.5-5.1); PROTEIN TOTAL,TP 6.8 g/dL (6.4-8.2); SODIUM,NA 145 mmol/L (136-145)
[2022-09-19] MEDS ORDERED: Docusate Sodium 100 MG Cap PO PRN (06:05)
[2022-09-19] MEDS ORDERED: Azithromycin 500 MG in Sodium Chloride 0.9% 250 ML IV ONE (06:10)
[2022-09-19] MEDS ORDERED: Acetaminophen/HYDROcodone 325-5 MG Tab PO PRN (06:11)
[2022-09-19] MEDS ORDERED: Acetaminophen 325 MG Tab PO PRN (06:11)
[2022-09-19] MEDS ORDERED: Polyethylene Glycol 3350 Powder 17 GM Packet PO PRN (06:11)
[2022-09-19] MEDS ORDERED: Ondansetron 4 MG/2 ML SDV IVPUSH PRN (06:11)
[2022-09-19] MEDS ORDERED: Albuterol 0.083% 2.5 MG/3 ML Neb Soln NEB PRN (06:11)
[2022-09-19] MEDS: cefTRIAXone 1 GM Vial IVPUSH SCH (08:26)
[2022-09-19] MEDS: Potassium Chloride 10 MEQ Tab.ER PO SCH ×2 (08:30→22:03)
[2022-09-19] MEDS: Furosemide 40 MG/4 ML VIAL IVPUSH SCH ×2 (08:32→13:24)
[2022-09-19] MEDS: Ferrous Sulfate 325 MG Tab PO SCH (08:39)
[2022-09-19] MEDS ORDERED: Non-Formulary Medication 1 Each (Fluoxetine Hcl [Prozac] 20 MG Capsule) PO SCH (09:00)
[2022-09-19] MEDS ORDERED: Cholecalciferol (Vitamin D3) 25 MCG Tab PO SCH (09:00)
[2022-09-19] MEDS ORDERED: Metoprolol Succinate 50 MG Tab.ER PO SCH (09:00)
[2022-09-19] MEDS: methylPREDNISolone Sodium Succinate 40 MG/1 ML SDV IVPUSH SCH ×3 (10:30→22:03)
[2022-09-19] MEDS ORDERED: FLUoxetine 10 MG Cap PO SCH (12:00)
[2022-09-19] MEDS ORDERED: Calcitriol 0.25 MCG Cap PO SCH (12:00)
[2022-09-19] MEDS: BUDESONIDE INH SCH ×2 (13:27→22:05)
[2022-09-19] MEDS: FORMOTEROL INH SCH ×2 (13:27→22:05)
[2022-09-19] MEDS ORDERED: atorvaSTATin 20 MG Tab PO SCH (21:00)
[2022-09-19] MEDS ORDERED: Tamsulosin 0.4 MG Cap.ER PO SCH (21:00)
[2022-09-19] MEDS: ATORVASTATIN 20 MG PO SCH (22:04)
[2022-09-19] MEDS: TAMSULOSIN 0.4 MG PO SCH (22:04)
[2022-09-19] MEDS: RIVAROXABAN 20 MG PO SCH (22:04)
[2022-09-20] MEDS: methylPREDNISolone Sodium Succinate 40 MG/1 ML SDV IVPUSH SCH ×4 (03:28→21:31)
[2022-09-20] MEDS: Albuterol/Ipratropium 3.0-0.5 MG/3 ML Neb Soln NEB PRN ×2 (03:36→21:43)
[2022-09-20 06:44] LABS: HEMATOCRIT 27.1 % (40.0-54.0); HEMOGLOBIN 8.3 g/dL (14.0-18.0); MEAN CORPUSCULAR HEMOGLOBIN 28.2 pg (27.0-34.0); MEAN CORPUSCULAR HGB CONC 30.6 g/dL (33.0-35.0); MEAN CORPUSCULAR VOLUME 92.2 fL (80-100); PLATELET COUNT,PLT 220 10^3/uL (150-450); RED BLOOD CELL COUNT 2.94 10^6/uL (4.6-6.2); WHITE BLOOD CELL COUNT,WBC 9.3 10^3/uL (5.0-10.0)
[2022-09-20 06:45] LABS: NEUTROPHILS PERCENT AUTO 91.7 % (42.2-75.2)
[2022-09-20 06:46] LABS: MONOCYTES PERCENT AUTO 3.3 % (2-8)
[2022-09-20 06:47] LABS: CALCIUM 8.4 mg/dL (8.5-10.1); CREATININE 1.87 mg/dL (0.70-1.30); EST CRCL DRUG DOSING (CG) 23.24 mL/min
[2022-09-20 07:26] LABS: BAND PERCENT MAN 17 %; LYMPHOCYTES PERCENT MAN 6 % (20-50); MONOCYTES PERCENT MAN 2 % (2-8); SEG NEUTROPHILS PERCENT MAN 75 % (42-75)
[2022-09-20] MEDS ORDERED: METOPROLOL SUCCINATE 50 MG PO SCH (09:00)
[2022-09-20] MEDS: Azithromycin 250 MG Tab PO SCH (09:14)
[2022-09-20] MEDS: Ferrous Sulfate 325 MG Tab PO SCH (09:15)
[2022-09-20] MEDS: Potassium Chloride 10 MEQ Tab.ER PO SCH ×2 (09:15→21:25)
[2022-09-20] MEDS: cefTRIAXone 1 GM Vial IVPUSH SCH (09:17)
[2022-09-20] MEDS: Furosemide 40 MG/4 ML VIAL IVPUSH SCH ×2 (09:17→13:31)
[2022-09-20] MEDS: FORMOTEROL INH SCH ×2 (09:28→21:23)
[2022-09-20] MEDS: BUDESONIDE INH SCH ×2 (09:28→21:23)
[2022-09-20] MEDS: CALCITRIOL 0.25 MCG PO SCH (09:29)
[2022-09-20] MEDS: Metoprolol Succinate 50 MG Tab.ER PO SCH (10:21)
[2022-09-20] MEDS: CHOLECALCIFEROL 125 MCG PO SCH (13:32)
[2022-09-20] MEDS: FLUOXETINE 20 MG PO SCH (13:32)
[2022-09-20] MEDS ORDERED: Pantoprazole 40 MG Vial IVPUSH ONE (18:00)
[2022-09-20] MEDS ORDERED: Bumetanide 1 MG Tab PO SCH (21:00)
[2022-09-20] MEDS: RIVAROXABAN 20 MG PO SCH (21:24)
[2022-09-20] MEDS: ATORVASTATIN 20 MG PO SCH (21:24)
[2022-09-20] MEDS: TAMSULOSIN 0.4 MG PO SCH (21:25)
[2022-09-20] MEDS: Sodium Chloride 0.9% 10 ML Syringe FLUSH PRN (21:31)
[2022-09-21] MEDS: methylPREDNISolone Sodium Succinate 40 MG/1 ML SDV IVPUSH SCH ×3 (04:20→15:01)
[2022-09-21] MEDS: Sodium Chloride 0.9% 10 ML Syringe FLUSH PRN (04:20)
[2022-09-21] MEDS: Pantoprazole 40 MG Tab.CR PO SCH ×2 (04:34→05:10)
[2022-09-21 06:21] LABS: HEMATOCRIT 27.1 % (40.0-54.0); HEMOGLOBIN 8.5 g/dL (14.0-18.0); LYMPHOCYTES PERCENT AUTO 6.5 % (20.5-50.1); MEAN CORPUSCULAR HEMOGLOBIN 28.2 pg (27.0-34.0); MEAN CORPUSCULAR HGB CONC 31.4 g/dL (33.0-35.0); MONOCYTES PERCENT AUTO 2.7 % (2-8); NEUTROPHILS PERCENT AUTO 90.8 % (42.2-75.2); PLATELET COUNT,PLT 240 10^3/uL (150-450); RED BLOOD CELL COUNT 3.01 10^6/uL (4.6-6.2); WHITE BLOOD CELL COUNT,WBC 11.7 10^3/uL (5.0-10.0)
[2022-09-21 06:50] LABS: ALBUMIN 2.9 g/dL (3.4-5.0); ANION GAP 13.9 mEq/L (7-13); BILIRUBIN TOTAL 0.3 mg/dL (0.2-1.0); BUN/CREATININE RATIO 27.9 (No establ ref range); CALCIUM 8.3 mg/dL (8.5-10.1); CREATININE 1.72 mg/dL (0.70-1.30); EST CRCL DRUG DOSING (CG) 25.27 mL/min; POTASSIUM,K 3.9 mmol/L (3.5-5.1); PROTEIN TOTAL,TP 6.1 g/dL (6.4-8.2)
[2022-09-21 06:51] LABS: A/G RATIO 0.91
[2022-09-21] MEDS: Potassium Chloride 10 MEQ Tab.ER PO SCH (08:01)
[2022-09-21] MEDS: Ferrous Sulfate 325 MG Tab PO SCH (08:02)
[2022-09-21] MEDS: cefTRIAXone 1 GM Vial IVPUSH SCH (08:02)
[2022-09-21] MEDS: Azithromycin 250 MG Tab PO SCH (08:02)
[2022-09-21] MEDS: Furosemide 40 MG/4 ML VIAL IVPUSH SCH (08:02)
[2022-09-21] MEDS: BUDESONIDE INH SCH (08:04)
[2022-09-21] MEDS: CHOLECALCIFEROL 125 MCG PO SCH (08:04)
[2022-09-21] MEDS: FORMOTEROL INH SCH (08:04)
[2022-09-21] MEDS: FLUOXETINE 20 MG PO SCH (08:05)
[2022-09-21] MEDS: CALCITRIOL 0.25 MCG PO SCH (08:06)
[2022-09-21] MEDS: Metoprolol Succinate 50 MG Tab.ER PO SCH (08:09)
[2022-09-21] MEDS: Bumetanide 1 MG Tab PO SCH ×2 (08:22→15:00)
[2022-09-21 13:15] VITALS: BP 128/67; PULSE 70
== END 2022-09-21 16:00 | disposition home or self-care (01) | DRG 291 ==
LOC: DL.ED 02:42 → UNDOADMOB 05:11 → DL.MS 05:11 → UNDOADMOB 05:21 → OBSVTOIN 09-20 13:45
PROVIDERS: ADMIT Internal Medicine; ATTEND Internal Medicine
DX: I13.0 Hypertensive heart and chronic kidney disease with heart failure and stage 1 through stage 4 chronic kidney disease, or unspecified chronic kidney disease (principal); I50.23 Acute on chronic systolic (congestive) heart failure; J96.21 Acute and chronic respiratory failure with hypoxia; N25.81 Secondary hyperparathyroidism of renal origin; J44.1 Chronic obstructive pulmonary disease with (acute) exacerbation; I42.9 Cardiomyopathy, unspecified; E78.5 Hyperlipidemia, unspecified; N18.30 Chronic kidney disease, stage 3 unspecified; I48.91 Unspecified atrial fibrillation; I48.0 Paroxysmal atrial fibrillation; I27.20 Pulmonary hypertension, unspecified; R73.9 Hyperglycemia, unspecified; G47.33 Obstructive sleep apnea (adult) (pediatric); J44.9 Chronic obstructive pulmonary disease, unspecified; D63.1 Anemia in chronic kidney disease; H91.90 Unspecified hearing loss, unspecified ear; I07.1 Rheumatic tricuspid insufficiency; I49.5 Sick sinus syndrome; I25.10 Atherosclerotic heart disease of native coronary artery without angina pectoris; E78.00 Pure hypercholesterolemia, unspecified; Z91.148 Patient's other noncompliance with medication regimen for other reason; Z98.890 Other specified postprocedural states; Z98.49 Cataract extraction status, unspecified eye; F17.210 Nicotine dependence, cigarettes, uncomplicated; Z79.899 Other long term (current) drug therapy; Z95.0 Presence of cardiac pacemaker; Z86.73 Personal history of transient ischemic attack (TIA), and cerebral infarction without residual deficits
CPT/HCPCS: 36415 ×2; 71045; 80048; 80053; 83605; 83735; 83880; 84145; 84484; 85025 ×2; 85610; 85730; 86140; 87040 ×2; 93005; 93010; 94640; 96374; 96375; 96376 ×2; 97161; 97165; 99223; 99284; 99285; A9270 ×13; G0378 ×3; J0456; J0696 ×2; J1940 ×4; J2920 ×5; J2930; J7050; 70450; 97116-GP; 97530-GP; 99233; 99238; C9113; J3490; J7613-GY; J7620-GY

== ENCOUNTER 2022-10-27 08:32 | Emergency (ER) | payer MEDICARE, OTHER ==
[2022-10-27] MEDS ORDERED: Albuterol/Ipratropium 3.0-0.5 MG/3 ML Neb Soln NEB ONE (08:41)
[2022-10-27 09:04] LABS: BASOPHILS PERCENT AUTO 0.4 % (0.0-1.0); EOSINOPHILS PERCENT AUTO 4.4 % (1.0-3.0); HEMATOCRIT 31.1 % (40.0-54.0); HEMOGLOBIN 9.5 g/dL (14.0-18.0); LYMPHOCYTES PERCENT AUTO 16.7 % (20.5-50.1); MEAN CORPUSCULAR HEMOGLOBIN 28.4 pg (27.0-34.0); MEAN CORPUSCULAR HGB CONC 30.5 g/dL (33.0-35.0); MEAN CORPUSCULAR VOLUME 92.8 fL (80-100); MONOCYTES PERCENT AUTO 14.2 % (2-8); NEUTROPHILS PERCENT AUTO 64.3 % (42.2-75.2); PLATELET COUNT,PLT 224 10^3/uL (150-450); RED BLOOD CELL COUNT 3.35 10^6/uL (4.6-6.2); WHITE BLOOD CELL COUNT,WBC 7.2 10^3/uL (5.0-10.0)
[2022-10-27] MEDS ORDERED: Dexamethasone 4 MG/ML SDV IVPUSH ONE (09:17)
[2022-10-27 09:23] LABS: A/G RATIO 0.91; ALBUMIN 3.2 g/dL (3.4-5.0); ANION GAP 8.1 mEq/L (7-13); BILIRUBIN TOTAL 0.6 mg/dL (0.2-1.0); BUN/CREATININE RATIO 13.9 (No establ ref range); CALCIUM 8.8 mg/dL (8.5-10.1); CREATININE 1.66 mg/dL (0.70-1.30); EST CRCL DRUG DOSING (CG) 26.18 mL/min; POTASSIUM,K 4.1 mmol/L (3.5-5.1); PROTEIN TOTAL,TP 6.7 g/dL (6.4-8.2)
[2022-10-27 10:19] LABS: APPEARANCE,URINE CLEAR (CLEAR); BILIRUBIN,URINE NEGATIVE (NEGATIVE); COLOR,URINE YELLOW (YELLOW); GLUCOSE,URINE NEGATIVE (NEGATIVE); KETONES,URINE NEGATIVE (NEGATIVE); LEUKOCYTE ESTERASE,URINE NEGATIVE (NEGATIVE); NITRITE,URINE NEGATIVE (NEGATIVE); OCCULT BLOOD,URINE NEGATIVE (NEGATIVE); PROTEIN,URINE NEGATIVE (NEGATIVE); UROBILINOGEN,URINE 0.2 mg/dL (0.2-1.0)
[2022-10-27 10:53] VITALS: BP 123/78; PULSE 70
== END 2022-10-27 10:53 ==
LOC: DL.ED 08:32
DX: J44.1 Chronic obstructive pulmonary disease with (acute) exacerbation (principal); J98.9 Respiratory disorder, unspecified; I50.9 Heart failure, unspecified; I48.91 Unspecified atrial fibrillation; I25.10 Atherosclerotic heart disease of native coronary artery without angina pectoris; E78.00 Pure hypercholesterolemia, unspecified; I11.0 Hypertensive heart disease with heart failure; Z86.16 Personal history of COVID-19; Z79.51 Long term (current) use of inhaled steroids; Z79.899 Other long term (current) drug therapy; Z99.81 Dependence on supplemental oxygen
CPT/HCPCS: 36415; 71045; 80053; 81003; 85025; 93005; 94640; 96374; 99285-25; J1100; J7620-GY

== ENCOUNTER 2023-02-15 13:02 | Inpatient (IN) | payer MEDICARE, OTHER ==
[2023-02-15] MEDS ORDERED: Magnesium Sulfate/Water 2 GM in Premix Bag 1 BAG IV ONE (13:37)
[2023-02-15] MEDS ORDERED: Albuterol/Ipratropium 3.0-0.5 MG/3 ML Neb Soln NEB ONE (13:37)
[2023-02-15] MEDS ORDERED: Albuterol/Ipratropium 3.0-0.5 MG/3 ML Neb Soln ONE (13:38)
[2023-02-15 13:39] LABS: BASOPHILS PERCENT AUTO 0.3 % (0.0-1.0); EOSINOPHILS PERCENT AUTO 0.2 % (1.0-3.0); HEMATOCRIT 33.9 % (40.0-54.0); LYMPHOCYTES PERCENT AUTO 17.5 % (20.5-50.1); MEAN CORPUSCULAR HGB CONC 32.4 g/dL (33.0-35.0); MEAN CORPUSCULAR VOLUME 98.5 fL (80-100); MONOCYTES PERCENT AUTO 14.6 % (2-8); NEUTROPHILS PERCENT AUTO 67.4 % (42.2-75.2); PLATELET COUNT,PLT 169 10^3/uL (150-450); RED BLOOD CELL COUNT 3.44 10^6/uL (4.6-6.2); WHITE BLOOD CELL COUNT,WBC 6.6 10^3/uL (5.0-10.0)
[2023-02-15 13:50] LABS: ALANINE AMINOTRANSFERASE,ALT 18 U/L (16-63); ALBUMIN 3.6 g/dL (3.4-5.0); ALKALINE PHOSPHATASE 69 U/L (46-116); ANION GAP 10.9 mEq/L (7-13); ASPARTATE AMNIOTRANSFERASE,AST 11 U/L (15-37); BILIRUBIN TOTAL 0.8 mg/dL (0.2-1.0); BLOOD UREA NITROGEN,BUN 34 mg/dL (7-18); BUN/CREATININE RATIO 15.7 (No establ ref range); C-REACTIVE PROTEIN 5.23 ng/dL (<=0.30); CALCIUM 9.3 mg/dL (8.5-10.1); CARBON DIOXIDE,CO2 32 mmol/L (21-32); CHLORIDE,CL 100 mmol/L (98-107); CREATININE 2.16 mg/dL (0.70-1.30); GLUCOSE RANDOM 100 mg/dL (70-99); MAGNESIUM 2.2 mg/dL (1.8-2.4); POTASSIUM,K 3.9 mmol/L (3.5-5.1); PROTEIN TOTAL,TP 7.1 g/dL (6.4-8.2); SODIUM,NA 139 mmol/L (136-145)
[2023-02-15 13:51] LABS: ESTIMATED GFR 29 mL/min (>=60)
[2023-02-15 13:54] LABS: LACTIC ACID 1.7 mmol/L (0.4-2.0)
[2023-02-15 13:55] LABS: B-TYPE NATRIURETIC PEPTIDE,BNP 780 pg/ml (0-100)
[2023-02-15 14:23] LABS: INFLUENZA A NAA NEGATIVE (NEGATIVE); INFLUENZA B NAA NEGATIVE (NEGATIVE); RESPIRATORY SYNCYTIAL VIR NAA NEGATIVE (NEGATIVE)
[2023-02-15 14:26] LABS: CORONAVIRUS COVID-19 NAA POSITIVE (NEGATIVE)
[2023-02-15] MEDS ORDERED: Docusate Sodium 100 MG Cap PO PRN (15:51)
[2023-02-15] MEDS ORDERED: Ondansetron 4 MG/2 ML SDV IVPUSH PRN (15:54)
[2023-02-15] MEDS ORDERED: Polyethylene Glycol 3350 Powder 17 GM Packet PO PRN (15:54)
[2023-02-15] MEDS ORDERED: Acetaminophen 325 MG Tab PO PRN (15:54)
[2023-02-15] MEDS ORDERED: Azithromycin 500 MG in Sodium Chloride 0.9% 250 ML IV ONE (16:00)
[2023-02-15] MEDS: cefTRIAXone 1 GM Vial IVPUSH SCH (16:21)
[2023-02-15] MEDS: Albuterol 6.7 GM Inhaler INH SCH ×2 (17:00→22:03)
[2023-02-15] MEDS ORDERED: REMDESIVIR 200 MG in Sodium Chloride 0.9% 250 ML IV ONE (17:00)
[2023-02-15] MEDS: Dexamethasone 4 MG/ML SDV IVPUSH SCH (17:53)
[2023-02-15] MEDS ORDERED: Non-Formulary Medication 1 Each (Budesonide/Formoterol [Symbicort 160-4.5 Mcg Inhaler (6 G INH SCH (21:00)
[2023-02-15] MEDS: Potassium Chloride 10 MEQ Tab.ER PO SCH (22:01)
[2023-02-15] MEDS: Tamsulosin 0.4 MG Cap.ER PO SCH (22:01)
[2023-02-15] MEDS: atorvaSTATin 20 MG Tab PO SCH (22:01)
[2023-02-15] MEDS: Bumetanide 1 MG Tab PO SCH (22:02)
[2023-02-15] MEDS: Formoterol/Mometasone 200-5 MCG 8.8 GM Inhaler IH SCH (22:03)
[2023-02-16] MEDS: Albuterol 6.7 GM Inhaler INH SCH ×5 (03:02→17:01)
[2023-02-16] MEDS: Formoterol/Mometasone 200-5 MCG 8.8 GM Inhaler IH SCH ×2 (05:19→17:01)
[2023-02-16 06:48] LABS: HEMATOCRIT 32.3 % (40.0-54.0); HEMOGLOBIN 10.3 g/dL (14.0-18.0); LYMPHOCYTES PERCENT AUTO 18.5 % (20.5-50.1); MEAN CORPUSCULAR HEMOGLOBIN 31.3 pg (27.0-34.0); MEAN CORPUSCULAR HGB CONC 31.9 g/dL (33.0-35.0); MEAN CORPUSCULAR VOLUME 98.2 fL (80-100); MONOCYTES PERCENT AUTO 6.9 % (2-8); NEUTROPHILS PERCENT AUTO 74.6 % (42.2-75.2); PLATELET COUNT,PLT 163 10^3/uL (150-450); RED BLOOD CELL COUNT 3.29 10^6/uL (4.6-6.2); WHITE BLOOD CELL COUNT,WBC 5.5 10^3/uL (5.0-10.0)
[2023-02-16 07:07] LABS: ALBUMIN 3.2 g/dL (3.4-5.0); ANION GAP 12.9 mEq/L (7-13); BILIRUBIN TOTAL 0.4 mg/dL (0.2-1.0); BUN/CREATININE RATIO 17.4 (No establ ref range); CALCIUM 8.8 mg/dL (8.5-10.1); CREATININE 1.95 mg/dL (0.70-1.30); EST CRCL DRUG DOSING (CG) 22.29 mL/min; POTASSIUM,K 3.9 mmol/L (3.5-5.1); PROTEIN TOTAL,TP 6.7 g/dL (6.4-8.2)
[2023-02-16 07:09] LABS: A/G RATIO 0.91
[2023-02-16] MEDS: Sodium Chloride 0.9% 10 ML Syringe FLUSH PRN ×2 (08:40→08:58)
[2023-02-16] MEDS: Potassium Chloride 10 MEQ Tab.ER PO SCH ×2 (08:42→22:04)
[2023-02-16] MEDS: Bumetanide 1 MG Tab PO SCH ×2 (08:42→22:03)
[2023-02-16] MEDS: Calcitriol 0.25 MCG Cap PO SCH (08:43)
[2023-02-16] MEDS: Rivaroxaban 10 MG Tab PO SCH (08:43)
[2023-02-16] MEDS: Pantoprazole 40 MG Tab.CR PO SCH (08:43)
[2023-02-16] MEDS: Ferrous Sulfate 325 MG Tab PO SCH (08:43)
[2023-02-16] MEDS: Metoprolol Succinate 50 MG Tab.ER PO SCH (08:43)
[2023-02-16] MEDS: FLUoxetine 10 MG Cap PO SCH (08:47)
[2023-02-16] MEDS: Azithromycin 250 MG Tab PO SCH (08:47)
[2023-02-16] MEDS: Cholecalciferol (Vitamin D3) 25 MCG Tab PO SCH (08:47)
[2023-02-16] MEDS: Cyanocobalamin (Vitamin B12) 1,000 MCG Tab PO SCH (08:48)
[2023-02-16] MEDS: Magnesium Oxide 400 MG Tab PO SCH (11:38)
[2023-02-16] MEDS: cefTRIAXone 1 GM Vial IVPUSH SCH (16:06)
[2023-02-16] MEDS: Dexamethasone 4 MG/ML SDV IVPUSH SCH (16:12)
[2023-02-16] MEDS ORDERED: REMDESIVIR 100 MG in Sodium Chloride 0.9% 100 ML IV SCH (17:00)
[2023-02-16] MEDS: atorvaSTATin 20 MG Tab PO SCH (22:04)
[2023-02-16] MEDS: Tamsulosin 0.4 MG Cap.ER PO SCH (22:04)
[2023-02-17] MEDS: Albuterol 6.7 GM Inhaler INH SCH ×3 (00:51→13:52)
[2023-02-17] MEDS: Formoterol/Mometasone 200-5 MCG 8.8 GM Inhaler IH SCH (05:32)
[2023-02-17 06:33] LABS: HEMATOCRIT 31.6 % (40.0-54.0); HEMOGLOBIN 10.3 g/dL (14.0-18.0); LYMPHOCYTES PERCENT AUTO 16.9 % (20.5-50.1); MEAN CORPUSCULAR HEMOGLOBIN 31.6 pg (27.0-34.0); MEAN CORPUSCULAR HGB CONC 32.6 g/dL (33.0-35.0); MEAN CORPUSCULAR VOLUME 96.9 fL (80-100); MONOCYTES PERCENT AUTO 8.9 % (2-8); NEUTROPHILS PERCENT AUTO 74.2 % (42.2-75.2); PLATELET COUNT,PLT 165 10^3/uL (150-450); RED BLOOD CELL COUNT 3.26 10^6/uL (4.6-6.2); WHITE BLOOD CELL COUNT,WBC 6.2 10^3/uL (5.0-10.0)
[2023-02-17 06:55] LABS: ALBUMIN 3.1 g/dL (3.4-5.0); BILIRUBIN TOTAL 0.3 mg/dL (0.2-1.0); BUN/CREATININE RATIO 23.3 (No establ ref range); CALCIUM 8.7 mg/dL (8.5-10.1); CREATININE 1.8 mg/dL (0.70-1.30); EST CRCL DRUG DOSING (CG) 24.15 mL/min; PROTEIN TOTAL,TP 6.5 g/dL (6.4-8.2)
[2023-02-17 06:56] LABS: A/G RATIO 0.91
[2023-02-17] MEDS: Cholecalciferol (Vitamin D3) 25 MCG Tab PO SCH (08:52)
[2023-02-17] MEDS: Rivaroxaban 10 MG Tab PO SCH (08:54)
[2023-02-17] MEDS: Cyanocobalamin (Vitamin B12) 1,000 MCG Tab PO SCH (08:56)
[2023-02-17] MEDS: FLUoxetine 10 MG Cap PO SCH (08:57)
[2023-02-17] MEDS: Bumetanide 1 MG Tab PO SCH (08:58)
[2023-02-17] MEDS: Pantoprazole 40 MG Tab.CR PO SCH (08:59)
[2023-02-17] MEDS: Azithromycin 250 MG Tab PO SCH (08:59)
[2023-02-17] MEDS: Metoprolol Succinate 50 MG Tab.ER PO SCH (09:00)
[2023-02-17] MEDS: Potassium Chloride 10 MEQ Tab.ER PO SCH (09:00)
[2023-02-17] MEDS: Calcitriol 0.25 MCG Cap PO SCH (09:01)
[2023-02-17] MEDS: Ferrous Sulfate 325 MG Tab PO SCH (09:01)
[2023-02-17] MEDS: Magnesium Oxide 400 MG Tab PO SCH (11:30)
[2023-02-17 12:00] VITALS: BP 140/74; PULSE 73
== END 2023-02-17 13:45 | disposition home or self-care (01) | DRG 178 ==
LOC: DL.ED 13:02 → DL.MS 14:35
PROVIDERS: ADMIT Internal Medicine; ATTEND Internal Medicine
PROC: XW033E5 Introduction of Remdesivir Anti-infective into Peripheral Vein, Percutaneous Approach, New Technology Group 5 (ICD-10-PCS; principal; 2023-02-15)
PROC: 3E0333Z Introduction of Anti-inflammatory into Peripheral Vein, Percutaneous Approach (ICD-10-PCS; 2023-02-15)
DX: U07.1 COVID-19 (principal); I13.0 Hypertensive heart and chronic kidney disease with heart failure and stage 1 through stage 4 chronic kidney disease, or unspecified chronic kidney disease; N17.9 Acute kidney failure, unspecified; J44.1 Chronic obstructive pulmonary disease with (acute) exacerbation; J96.10 Chronic respiratory failure, unspecified whether with hypoxia or hypercapnia; I42.9 Cardiomyopathy, unspecified; I50.22 Chronic systolic (congestive) heart failure; N25.81 Secondary hyperparathyroidism of renal origin; E86.0 Dehydration; J44.9 Chronic obstructive pulmonary disease, unspecified; N18.30 Chronic kidney disease, stage 3 unspecified; F17.210 Nicotine dependence, cigarettes, uncomplicated; I48.0 Paroxysmal atrial fibrillation; I27.20 Pulmonary hypertension, unspecified; I49.5 Sick sinus syndrome; I48.91 Unspecified atrial fibrillation; D63.1 Anemia in chronic kidney disease; M19.90 Unspecified osteoarthritis, unspecified site; G47.33 Obstructive sleep apnea (adult) (pediatric); H91.90 Unspecified hearing loss, unspecified ear; Z96.649 Presence of unspecified artificial hip joint; Z98.49 Cataract extraction status, unspecified eye; Z98.890 Other specified postprocedural states; N18.9 Chronic kidney disease, unspecified; I50.9 Heart failure, unspecified; Z90.49 Acquired absence of other specified parts of digestive tract; I25.10 Atherosclerotic heart disease of native coronary artery without angina pectoris; E78.00 Pure hypercholesterolemia, unspecified; Z79.01 Long term (current) use of anticoagulants; Z79.899 Other long term (current) drug therapy; Z95.0 Presence of cardiac pacemaker; Z86.73 Personal history of transient ischemic attack (TIA), and cerebral infarction without residual deficits
CPT/HCPCS: 0241U; 36415; 71045; 80053; 83605; 83735; 83880; 85025; 86140; 93005; 93010; 94010; 94060; 94640; 94664; 94667; 94668; 94762; 96374; 97161-GP; 97165-GO; 99222; 99232; 99239; 99284; 99285-25; A9270-GY; J0248; J0456; J0696; J1100; J3475; J3490; J7050; J7620-GY

== ENCOUNTER 2023-12-01 00:02 | Emergency (ER) | payer MEDICARE, OTHER ==
[2023-11-30 23:37] VITALS: BP 100/51; PULSE 70
[2023-11-30 23:45] LABS: BASOPHILS PERCENT AUTO 0.5 % (0.0-1.0); EOSINOPHILS PERCENT AUTO 4.4 % (1.0-3.0); HEMOGLOBIN 10.4 g/dL (14.0-18.0); LYMPHOCYTES PERCENT AUTO 29.5 % (20.5-50.1); MEAN CORPUSCULAR HGB CONC 31.5 g/dL (33.0-35.0); MEAN CORPUSCULAR VOLUME 98.2 fL (80-100); MONOCYTES PERCENT AUTO 12.1 % (2-8); NEUTROPHILS PERCENT AUTO 53.5 % (42.2-75.2); PLATELET COUNT,PLT 225 10^3/uL (150-450); RED BLOOD CELL COUNT 3.36 10^6/uL (4.6-6.2); WHITE BLOOD CELL COUNT,WBC 6.6 10^3/uL (5.0-10.0)
[2023-11-30 23:55] LABS: ALBUMIN 3.3 g/dL (3.4-5.0); ANION GAP 9.6 mEq/L (7-13); BILIRUBIN TOTAL 0.5 mg/dL (0.2-1.0); BUN/CREATININE RATIO 17.1 (No establ ref range); CREATININE 1.99 mg/dL (0.70-1.30); EST CRCL DRUG DOSING (CG) 21.44 mL/min; POTASSIUM,K 4.6 mmol/L (3.5-5.1); PROTEIN TOTAL,TP 6.8 g/dL (6.4-8.2)
[2023-11-30 23:56] LABS: A/G RATIO 0.94
[~2023-12-01 00:02] MED LIST changes: -Albuterol 0.083% 2.5 MG/3 ML Neb Soln NEB ONE; -Bumetanide 1 MG/4 ML MDV IVPUSH ONE; +Sodium Chloride 0.9% 10 ML Syringe FLUSH PRN
[2023-12-01 00:03] LABS: INR 1.2 (0.9-1.2); PROTHROMBIN TIME 12.1 SEC (9.0-12.0); PTT,PARTIAL THROMBOPLSTIN TIME 30.5 SEC (22.0-34.0)
[2023-12-01 00:30] LABS: LYMPHOCYTES PERCENT MAN 33 % (20-50); MONOCYTES PERCENT MAN 13 % (2-8); SEG NEUTROPHILS PERCENT MAN 53 % (42-75)
[2023-12-01 00:31] LABS: EOSINOPHILS PERCENT MAN 1 % (1-3)
[2023-12-01 00:46] LABS: APPEARANCE,URINE CLEAR (CLEAR); BILIRUBIN,URINE NEGATIVE (NEGATIVE); COLOR,URINE YELLOW (YELLOW); GLUCOSE,URINE NEGATIVE (NEGATIVE); KETONES,URINE NEGATIVE (NEGATIVE); LEUKOCYTE ESTERASE,URINE NEGATIVE (NEGATIVE); NITRITE,URINE NEGATIVE (NEGATIVE); OCCULT BLOOD,URINE NEGATIVE (NEGATIVE); PROTEIN,URINE NEGATIVE (NEGATIVE); UROBILINOGEN,URINE 0.2 mg/dL (0.2-1.0)
[2023-12-01 00:48] LABS: AMPHETAMINES,URINE NEGATIVE (NEGATIVE); BARBITURATES,URINE NEGATIVE (NEGATIVE); BENZODIAZEPINE,URINE NEGATIVE (NEGATIVE); MDMA (ECSTASY), URINE NEGATIVE (NEGATIVE); METHADONE,URINE NEGATIVE (NEGATIVE); METHAMPHETAMINES,URINE NEGATIVE (NEGATIVE); OPIATES,URINE NEGATIVE (NEGATIVE); OXYCODONE,URINE NEGATIVE (NEGATIVE); PHENCYCLIDINE,URINE NEGATIVE (NEGATIVE); TCA,URINE NEGATIVE (NEGATIVE)
== END 2023-12-01 01:10 ==
LOC: DL.ED 00:02
DX: I63.9 Cerebral infarction, unspecified (principal); I11.0 Hypertensive heart disease with heart failure; I50.9 Heart failure, unspecified; I25.10 Atherosclerotic heart disease of native coronary artery without angina pectoris; J44.9 Chronic obstructive pulmonary disease, unspecified; Z86.16 Personal history of COVID-19; Z90.49 Acquired absence of other specified parts of digestive tract; Z79.899 Other long term (current) drug therapy
CPT/HCPCS: 36415; 70450; 80053; 80305-QW; 81003; 82947; 83605; 84484; 85025; 85610; 85730; 93005; 99285

== ENCOUNTER 2024-01-30 13:32 | Emergency (ER) | payer MEDICARE, OTHER ==
[2024-01-30 14:07] LABS: BASOPHILS PERCENT AUTO 0.4 % (0.0-1.0); EOSINOPHILS PERCENT AUTO 3.5 % (1.0-3.0); LYMPHOCYTES PERCENT AUTO 18.4 % (20.5-50.1); MEAN CORPUSCULAR HEMOGLOBIN 29.6 pg (27.0-34.0); MEAN CORPUSCULAR HGB CONC 29.3 g/dL (33.0-35.0); MONOCYTES PERCENT AUTO 14.7 % (2-8); PLATELET COUNT,PLT 252 10^3/uL (150-450); RED BLOOD CELL COUNT 2.06 10^6/uL (4.6-6.2); WHITE BLOOD CELL COUNT,WBC 5.7 10^3/uL (5.0-10.0)
[2024-01-30 14:10] LABS: HEMATOCRIT 20.8 % (40.0-54.0); HEMOGLOBIN 6.1 g/dL (14.0-18.0)
[2024-01-30 14:17] LABS: A/G RATIO 0.94; ALANINE AMINOTRANSFERASE,ALT 14 U/L (16-63); ALBUMIN 3.1 g/dL (3.4-5.0); ALKALINE PHOSPHATASE 80 U/L (46-116); ANION GAP 9.9 mEq/L (7-13); ASPARTATE AMNIOTRANSFERASE,AST 9 U/L (15-37); BILIRUBIN TOTAL 0.6 mg/dL (0.2-1.0); BLOOD UREA NITROGEN,BUN 28 mg/dL (7-18); BUN/CREATININE RATIO 14.9 (No establ ref range); CALCIUM 8.5 mg/dL (8.5-10.1); CARBON DIOXIDE,CO2 30 mmol/L (21-32); CHLORIDE,CL 106 mmol/L (98-107); CREATININE 1.88 mg/dL (0.70-1.30); ESTIMATED GFR 34 mL/min (>=60); GLUCOSE RANDOM 146 mg/dL (70-99); POTASSIUM,K 3.9 mmol/L (3.5-5.1); PROTEIN TOTAL,TP 6.4 g/dL (6.4-8.2); SODIUM,NA 142 mmol/L (136-145)
[2024-01-30] MEDS: Bumetanide 1 MG Tab PO ONE (14:54)
[2024-01-30 15:47] LABS: APPEARANCE,URINE CLEAR (CLEAR); BILIRUBIN,URINE NEGATIVE (NEGATIVE); COLOR,URINE YELLOW (YELLOW); GLUCOSE,URINE NEGATIVE (NEGATIVE); KETONES,URINE NEGATIVE (NEGATIVE); LEUKOCYTE ESTERASE,URINE NEGATIVE (NEGATIVE); NITRITE,URINE NEGATIVE (NEGATIVE); OCCULT BLOOD,URINE NEGATIVE (NEGATIVE); PH,URINE 5.5 (5.0-9.0); PROTEIN,URINE NEGATIVE (NEGATIVE); UROBILINOGEN,URINE 0.2 mg/dL (0.2-1.0)
[2024-01-30 20:06] VITALS: BP 146/93; PULSE 71
== END 2024-01-30 20:38 | disposition home or self-care (01) ==
LOC: DL.ED 13:32
DX: D53.9 Nutritional anemia, unspecified (principal); D50.9 Iron deficiency anemia, unspecified; I13.0 Hypertensive heart and chronic kidney disease with heart failure and stage 1 through stage 4 chronic kidney disease, or unspecified chronic kidney disease; I50.9 Heart failure, unspecified; N18.32 Chronic kidney disease, stage 3b; I25.10 Atherosclerotic heart disease of native coronary artery without angina pectoris; I48.91 Unspecified atrial fibrillation; E78.00 Pure hypercholesterolemia, unspecified; J44.9 Chronic obstructive pulmonary disease, unspecified; Z79.899 Other long term (current) drug therapy; Z79.01 Long term (current) use of anticoagulants; Z79.51 Long term (current) use of inhaled steroids; Z87.891 Personal history of nicotine dependence; Z90.49 Acquired absence of other specified parts of digestive tract; Z86.16 Personal history of COVID-19
CPT/HCPCS: 36415; 36430; 80053; 81003; 85025; 86850; 86900; 86901; 86920; 86922; 99285; A9270-GY; P9016

== ENCOUNTER 2024-02-02 18:35 | Emergency (ER) | payer MEDICARE, OTHER ==
[2024-02-02] MEDS: Sodium Chloride 0.9% 10 ML Syringe FLUSH PRN (19:13)
[2024-02-02 19:17] LABS: BASOPHILS PERCENT AUTO 0.5 % (0.0-1.0); EOSINOPHILS PERCENT AUTO 5.7 % (1.0-3.0); HEMATOCRIT 25.5 % (40.0-54.0); HEMOGLOBIN 7.7 g/dL (14.0-18.0); LYMPHOCYTES PERCENT AUTO 17.8 % (20.5-50.1); MEAN CORPUSCULAR HGB CONC 30.2 g/dL (33.0-35.0); MEAN CORPUSCULAR VOLUME 99.2 fL (80-100); MONOCYTES PERCENT AUTO 12.6 % (2-8); NEUTROPHILS PERCENT AUTO 63.4 % (42.2-75.2); PLATELET COUNT,PLT 240 10^3/uL (150-450); RED BLOOD CELL COUNT 2.57 10^6/uL (4.6-6.2); WHITE BLOOD CELL COUNT,WBC 6.5 10^3/uL (5.0-10.0)
[2024-02-02 19:35] LABS: INR 1.5 (0.9-1.2); PROTHROMBIN TIME 14.9 SEC (9.0-12.0); PTT,PARTIAL THROMBOPLSTIN TIME 35.5 SEC (22.0-34.0)
[2024-02-02 19:41] VITALS: BP 115/64; PULSE 94
[2024-02-02] MEDS: Tranexamic Acid 1,000 MG/10 ML Vial TOP ONE (20:05)
== END 2024-02-02 21:11 | disposition home or self-care (01) ==
LOC: DL.ED 18:35
DX: S51.812A Laceration without foreign body of left forearm, initial encounter (principal); I11.0 Hypertensive heart disease with heart failure; I50.9 Heart failure, unspecified; I25.10 Atherosclerotic heart disease of native coronary artery without angina pectoris; I48.91 Unspecified atrial fibrillation; E78.00 Pure hypercholesterolemia, unspecified; J44.9 Chronic obstructive pulmonary disease, unspecified; Z86.16 Personal history of COVID-19; Z90.49 Acquired absence of other specified parts of digestive tract; Z95.0 Presence of cardiac pacemaker; Z79.899 Other long term (current) drug therapy; Z79.51 Long term (current) use of inhaled steroids; Z79.01 Long term (current) use of anticoagulants; X58.XXXA Exposure to other specified factors, initial encounter
CPT/HCPCS: 12001; 36415; 85025; 85610; 85730; 99283; J3490

== ENCOUNTER 2024-02-07 10:11 | Emergency (ER) | payer MEDICARE, OTHER ==
[2024-02-07 10:59] VITALS: PULSE 84
[2024-02-07] MEDS ORDERED: Sodium Chloride 0.9% 10 ML Syringe FLUSH PRN (11:08)
[2024-02-07 11:15] LABS: BASOPHILS PERCENT AUTO 0.5 % (0.0-1.0); EOSINOPHILS PERCENT AUTO 7.5 % (1.0-3.0); HEMATOCRIT 26.2 % (40.0-54.0); HEMOGLOBIN 7.9 g/dL (14.0-18.0); LYMPHOCYTES PERCENT AUTO 14.9 % (20.5-50.1); MEAN CORPUSCULAR HEMOGLOBIN 29.8 pg (27.0-34.0); MEAN CORPUSCULAR HGB CONC 30.2 g/dL (33.0-35.0); MEAN CORPUSCULAR VOLUME 98.9 fL (80-100); MONOCYTES PERCENT AUTO 11.3 % (2-8); NEUTROPHILS PERCENT AUTO 65.8 % (42.2-75.2); PLATELET COUNT,PLT 245 10^3/uL (150-450); RED BLOOD CELL COUNT 2.65 10^6/uL (4.6-6.2); WHITE BLOOD CELL COUNT,WBC 5.8 10^3/uL (5.0-10.0)
[2024-02-07 11:35] LABS: ANION GAP 9.9 mEq/L (7-13); BILIRUBIN TOTAL 0.7 mg/dL (0.2-1.0); BUN/CREATININE RATIO 10.7 (No establ ref range); CALCIUM 8.8 mg/dL (8.5-10.1); CREATININE 1.68 mg/dL (0.70-1.30); EST CRCL DRUG DOSING (CG) 24.38 mL/min; POTASSIUM,K 3.9 mmol/L (3.5-5.1); PROTEIN TOTAL,TP 6.4 g/dL (6.4-8.2)
[2024-02-07 11:36] LABS: A/G RATIO 0.88
[2024-02-07] MEDS: Bumetanide 1 MG/4 ML MDV IVPUSH ONE (11:48)
== END 2024-02-07 12:05 | disposition home or self-care (01) ==
LOC: DL.ED 10:11
DX: I13.0 Hypertensive heart and chronic kidney disease with heart failure and stage 1 through stage 4 chronic kidney disease, or unspecified chronic kidney disease (principal); I50.9 Heart failure, unspecified; N18.9 Chronic kidney disease, unspecified; E78.00 Pure hypercholesterolemia, unspecified; I48.91 Unspecified atrial fibrillation; I25.10 Atherosclerotic heart disease of native coronary artery without angina pectoris; J44.9 Chronic obstructive pulmonary disease, unspecified; Z86.16 Personal history of COVID-19; Z95.0 Presence of cardiac pacemaker; Z86.73 Personal history of transient ischemic attack (TIA), and cerebral infarction without residual deficits; Z90.49 Acquired absence of other specified parts of digestive tract; Z79.899 Other long term (current) drug therapy
CPT/HCPCS: 36415; 80053; 83880; 85025; 99283; J3490

== ENCOUNTER 2024-03-28 09:08 | Emergency (ER) | payer MEDICARE, OTHER ==
[2024-03-28] MEDS ORDERED: Sodium Chloride 0.9% 250 ML IV SCH (09:45)
[2024-03-28 09:48] LABS: BASOPHILS PERCENT AUTO 0.3 % (0.0-1.0); EOSINOPHILS PERCENT AUTO 6.5 % (1.0-3.0); HEMATOCRIT 23.2 % (40.0-54.0); HEMOGLOBIN 7.1 g/dL (14.0-18.0); LYMPHOCYTES PERCENT AUTO 19.3 % (20.5-50.1); MEAN CORPUSCULAR HEMOGLOBIN 30.1 pg (27.0-34.0); MEAN CORPUSCULAR HGB CONC 30.6 g/dL (33.0-35.0); MEAN CORPUSCULAR VOLUME 98.3 fL (80-100); MONOCYTES PERCENT AUTO 12.6 % (2-8); NEUTROPHILS PERCENT AUTO 61.3 % (42.2-75.2); PLATELET COUNT,PLT 256 10^3/uL (150-450); RED BLOOD CELL COUNT 2.36 10^6/uL (4.6-6.2)
[2024-03-28 10:08] LABS: ALBUMIN 3.2 g/dL (3.4-5.0); BILIRUBIN TOTAL 0.4 mg/dL (0.2-1.0); BUN/CREATININE RATIO 19.3 (No establ ref range); CALCIUM 8.9 mg/dL (8.5-10.1); CREATININE 1.97 mg/dL (0.70-1.30); EST CRCL DRUG DOSING (CG) 27.79 mL/min; PROTEIN TOTAL,TP 6.6 g/dL (6.4-8.2)
[2024-03-28 10:09] LABS: A/G RATIO 0.94
[2024-03-28 15:23] VITALS: BP 110/63; PULSE 75
== END 2024-03-28 14:52 | disposition home or self-care (01) ==
LOC: DL.ED 09:08
DX: K92.2 Gastrointestinal hemorrhage, unspecified (principal); D50.9 Iron deficiency anemia, unspecified; I11.0 Hypertensive heart disease with heart failure; I50.9 Heart failure, unspecified; I48.91 Unspecified atrial fibrillation; E78.00 Pure hypercholesterolemia, unspecified; J44.9 Chronic obstructive pulmonary disease, unspecified; Z86.73 Personal history of transient ischemic attack (TIA), and cerebral infarction without residual deficits; Z86.16 Personal history of COVID-19; Z79.899 Other long term (current) drug therapy; Z79.02 Long term (current) use of antithrombotics/antiplatelets
CPT/HCPCS: 36415; 36430; 80053; 82272; 85025; 86850; 86900; 86901; 86920; 86922; 99284; P9016

== ENCOUNTER 2024-05-02 10:34 | Emergency (ER) | payer MEDICARE, OTHER ==
[2024-05-02 10:57] LABS: HEMATOCRIT 21.8 % (40.0-54.0)
[2024-05-02 10:59] LABS: HEMOGLOBIN 6.6 g/dL (14.0-18.0)
[2024-05-02 13:14] VITALS: BP 120/71; PULSE 82
[2024-05-02 14:09] LABS: HEMATOCRIT 23.8 % (40.0-54.0); HEMOGLOBIN 7.4 g/dL (14.0-18.0)
== END 2024-05-02 15:12 | disposition home or self-care (01) ==
LOC: DL.ED 10:34
DX: D50.9 Iron deficiency anemia, unspecified (principal); I48.91 Unspecified atrial fibrillation; I25.10 Atherosclerotic heart disease of native coronary artery without angina pectoris; I11.0 Hypertensive heart disease with heart failure; I50.9 Heart failure, unspecified; E78.00 Pure hypercholesterolemia, unspecified; J44.9 Chronic obstructive pulmonary disease, unspecified; Z86.73 Personal history of transient ischemic attack (TIA), and cerebral infarction without residual deficits; Z86.16 Personal history of COVID-19; Z90.49 Acquired absence of other specified parts of digestive tract; Z79.01 Long term (current) use of anticoagulants; Z79.899 Other long term (current) drug therapy
CPT/HCPCS: 36415; 36430; 85014; 85018; 86850; 86900; 86901; 86920; 86922; 99284; P9016

== ENCOUNTER 2024-05-09 13:45 | Emergency (ER) | payer MEDICARE, OTHER | END 2024-05-09 13:46 | LOC: DL.ED 13:45 | DX: Z53.21 Procedure and treatment not carried out due to patient leaving prior to being seen by health care provider (principal) ==

== ENCOUNTER 2024-11-07 09:33 | Emergency (ER) | payer MEDICARE, OTHER, MEDICAID ==
[2024-11-07 11:36] LABS: BASOPHILS PERCENT AUTO 0.3 % (0.0-1.0); EOSINOPHILS PERCENT AUTO 2.2 % (1.0-3.0); LYMPHOCYTES PERCENT AUTO 14.6 % (20.5-50.1); MONOCYTES PERCENT AUTO 13.1 % (2-8); NEUTROPHILS PERCENT AUTO 69.8 % (42.2-75.2); PLATELET COUNT,PLT 228 10^3/uL (150-450); RED BLOOD CELL COUNT 1.94 10^6/uL (4.6-6.2); WHITE BLOOD CELL COUNT,WBC 7.3 10^3/uL (5.0-10.0)
[2024-11-07] MEDS: diphenhydrAMINE 50 MG/ML SDV IV ONE ×2 (13:12→13:13)
[2024-11-07] MEDS: Furosemide 40 MG/4 ML VIAL IVPUSH ONE ×3 (13:12→17:15)
[2024-11-07 19:47] VITALS: PULSE 70
[2024-11-07 21:02] VITALS: BP 132/82
== END 2024-11-07 20:25 ==
LOC: DL.ED 09:33
DX: K92.2 Gastrointestinal hemorrhage, unspecified (principal); I48.91 Unspecified atrial fibrillation; I25.10 Atherosclerotic heart disease of native coronary artery without angina pectoris; I11.0 Hypertensive heart disease with heart failure; I50.9 Heart failure, unspecified; J44.9 Chronic obstructive pulmonary disease, unspecified; E78.00 Pure hypercholesterolemia, unspecified; Z95.0 Presence of cardiac pacemaker; Z79.899 Other long term (current) drug therapy; Z86.73 Personal history of transient ischemic attack (TIA), and cerebral infarction without residual deficits; Z86.16 Personal history of COVID-19
CPT/HCPCS: 36415; 36430; 82272; 85018; 85025; 86850; 86900; 86901; 86920; 86922; 96374; 96375; 96376; 99285; A9270; J1200; J1938; P9016

== ENCOUNTER 2024-11-09 12:13 | Emergency (ER) | payer MEDICARE, OTHER, MEDICAID ==
[2024-11-09 13:05] LABS: BASOPHILS PERCENT AUTO 0.4 % (0.0-1.0); EOSINOPHILS PERCENT AUTO 4.3 % (1.0-3.0); LYMPHOCYTES PERCENT AUTO 18.9 % (20.5-50.1); MONOCYTES PERCENT AUTO 14.4 % (2-8); NEUTROPHILS PERCENT AUTO 62.0 % (42.2-75.2); PLATELET COUNT,PLT 227 10^3/uL (150-450); RED BLOOD CELL COUNT 2.63 10^6/uL (4.6-6.2); WHITE BLOOD CELL COUNT,WBC 5.3 10^3/uL (5.0-10.0)
[2024-11-09 13:11] LABS: APPEARANCE,URINE CLEAR (CLEAR); GLUCOSE,URINE NEGATIVE (NEGATIVE); OCCULT BLOOD,URINE NEGATIVE (NEGATIVE)
[2024-11-09 13:28] LABS: ALANINE AMINOTRANSFERASE,ALT 15 U/L (16-63); ASPARTATE AMNIOTRANSFERASE,AST 13 U/L (15-37); BILIRUBIN TOTAL 0.7 mg/dL (0.2-1.0); BLOOD UREA NITROGEN,BUN 37 mg/dL (7-18); CARBON DIOXIDE,CO2 35 mmol/L (21-32); CHLORIDE,CL 106 mmol/L (98-107); CREATININE 2.10 mg/dL (0.70-1.30); GLUCOSE RANDOM 88 mg/dL (70-99); LACTIC ACID 0.5 mmol/L (0.4-2.0); POTASSIUM,K 4.1 mmol/L (3.5-5.1); PROTEIN TOTAL,TP 6.8 g/dL (6.4-8.2); SODIUM,NA 145 mmol/L (136-145)
[2024-11-09 13:29] LABS: A/G RATIO 0.94; ESTIMATED GFR 30 mL/min (>=60)
[2024-11-09] MEDS: Furosemide 40 MG/4 ML VIAL IVPUSH ONE (14:50)
[2024-11-09 16:32] VITALS: BP 142/79; PULSE 81
== END 2024-11-09 16:10 ==
LOC: DL.ED 12:13
DX: J44.9 Chronic obstructive pulmonary disease, unspecified (principal); E78.00 Pure hypercholesterolemia, unspecified; I11.0 Hypertensive heart disease with heart failure; I50.9 Heart failure, unspecified; I25.10 Atherosclerotic heart disease of native coronary artery without angina pectoris; E11.9 Type 2 diabetes mellitus without complications; E66.9 Obesity, unspecified; Z79.899 Other long term (current) drug therapy
CPT/HCPCS: 36415; 71045; 80053; 81003; 83605; 83735; 83880; 84145; 84484; 85025; 93005; 96374; 99285; J1938